=== PATIENT | female | born 1965 | race Caucasian/White ===

== ENCOUNTER 2025-01-03 19:19 | Inpatient (IN) | payer BC, SELFPAY ==
[2025-01-03 15:42] VITALS: BP 143/79
[2025-01-03 16:34] LABS: Urine Character Clear (Clear)
[2025-01-03 16:49] LABS: Urine Squamous Cell 0-2 /LPF (Few)
[2025-01-03 16:49] LABS: Hematocrit 34.6 % (37.0-47.0); Hemoglobin 11.9 g/dL (12.0-16.0); Mean Corp Hgb Conc. 34.4 g/dL (33.0-37.0); Mean Corpuscular Volume 123.6 fL (81.0-99.0); Nucleated Red Blood Cells % 0 %; Platelet Count 127 10^3/uL (130-400); Red Cell Dist. Width 13.9 % (11.5-14.5)
[2025-01-03 16:50] LABS: Urine Red Blood Cell 0-2 /HPF (0-2)
[2025-01-03 17:05] LABS: ALT (SGPT) 46 U/L (0-35); AST (SGOT) 63 U/L (14-36); Albumin 3.7 g/dl (3.5-5.0); Alkaline Phosphatase 122 U/L (38-126); Blood Urea Nitrogen 24 mg/dl (7-17); Calcium 9.3 mg/dl (8.4-10.2); Carbon Dioxide 25 mmol/L (22-30); Chloride 103 mmol/L (98-107); Glucose 102 mg/dl (70-99); Potassium 3.4 mmol/L (3.5-5.1); Sodium 137 mmol/L (135-145); Total Protein 6.6 g/dl (6.3-8.2); eGFR > 60.00
[2025-01-03] MEDS: NSS 1000 IV ×2 (17:10→21:51)
--- NOTE | 2025-01-03 17:45 | ED.GENMED ---
History of Present Illness
General
Chief Complaint: Change in Mental Status
Time Seen by Provider: 01/03/25 15:54
History of Present Illness
History of Present Illness:
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
Patient arrives with spouse who notes for the past 5 days patient has been altered. Notes hallucinations, has not been eating or drinking. She has not wanted to get out of bed. No report of any fever. She is also seemed more dyspneic with cough.
No known sick contacts. Patient is not currently on any active chemotherapy. They are monitoring some lung nodules. Patient denies any abdominal pain. Patient somewhat of limited historian. No additional history obtained at this time
Past History
Past History
ED Past Medical History: Cancer (Muco-epidermoid carcinoma floor of mouth and tongue)
ED Past Surgical History: Appendectomy
Social History
Tobacco: Smoker
Alcohol: Occasional
Personal:
Living: with family
Phy Exam
Physical Exam
Physical Exam:
General: Mild dryness mucous membranes
HEENT: protecting airway
Neck: appears supple
CV: Tachycardic, regular rhythm
Resp: No accessory muscle use, no increased work of breathing, lungs clear to auscultation bilaterally
Abd: Soft and non-distended, no tenderness to palpation
Extremities: No deformities, no swelling, no erythema, pulses and sensation intact
Neuro: alert, no focal neurologic deficit
: deferred
Rectal: deferred
Psych: Normal affect
Skin: Intact
Sepsis
Sepsis Screening
Sepsis Assessment: Sepsis Ruled Out
Sepsis Screen
Sepsis Screen: Sepsis Ruled Out
Date: 01/03/25
Time: 23:27
Course
Orders/Labs/Results
Orders:
Orders
01/03/25 15:44
Electrocardiogram (*1) Urgent
Reason for Study: Fatigue / Weakness
EKG- Treatment ONCE
01/03/25 16:00
Urinalysis Reflex To Culture Urgent
Date Specimen was Collected: 01/03/25
Time Specimen was Collected: 15:56
Urine Microscopic Reflex Cult Urgent
Urine Culture Urgent
AVINASH Source: U
Specimen Description:
Date Specimen was Collected: 01/03/25
Time Specimen was Collected: 15:56
01/03/25 16:32
0.9% Sodium Chloride 1000 ml [Nss] 1,000 ml IV BOLUS
CR Chest - 2 Views Urgent
Comment:
Reason For Exam: AMS
01/03/25 16:33
CT Head W/o Iv Contrast Urgent
Comment:
Reason For Exam: AMS
01/03/25 16:40
Complete Blood Count/With Diff Urgent
Comprehensive Metabolic Panel Urgent
01/03/25 17:00
Heparin Pf [Heparin Lock Flush] 500 unit IV PER PROTOCOL
01/03/25 17:54
Azithromycin 500 mg/250 ml [Zithromax Infusion] 500 mg in 250 ml IV NOW
CefTRIAXone [Rocephin] 1,000 mg IV NOW STA
01/03/25 17:58
Sterile Water [Sterile Water For Injection] 10 ml [facility]
01/03/25 19:00
COVID-19 Antigen Urgent
Source: Nasal Swab
Influenza A+B Rapid Molecular Urgent
AVINASH Source: Nasal Swab
Specimen Description:
01/03/25 19:05
Admit/Transfer Patient As Directed
Co-Sign Provider:
Level of Care: Inpatient admission
Assign to:: Medical/Surgical
Physician / Group: Ector Reynolds
Diagnosis: PNA, AMS
Reason for Hospitalization: PNA, AMS
Expected length of stay greater than two midnights?: Yes
ELOS- Estimated Length of Stay in days: 3
I certify the patient meets the requirements for IP care: Yes
PRN Pain Medication Management As Directed
May give lesser potent ordered pain med per pt: Yes
preference::
Protocol:: Medication orders for pain may be administered in a
manner that supports deferring to patient preference
when the pt is:
- Requesting an ordered lesser potent pain medication.
Least to most potent pain medications are defined
as: acetaminophen < NSAID < tramadol < opioids
(morphine, oxycodone, hydromorphone).
- Requesting a lesser dose of the same medication IF
ORDERED.
- Requesting a less intrusive route of administration
if both routes are prescribed by the provider (PO <
IV).
01/03/25 19:06
Code Status As Directed
Resuscitation Status: Full Code
01/03/25 21:11
0.9% Sodium Chloride 1000 ml [Nss] 1,000 ml IV 70 mls/hr
Acetaminophen [Tylenol] 650 mg PO Q4HPRN PRN
Lorazepam [Ativan] 1 mg PO Q4HPRN PRN anxiety
Oxycodone [Roxicodone] 10 mg PO Q6HPRN PRN moderate pain moderate pain
01/03/25 21:11
Activity As Directed
Activity Level: As Tolerated
Vital Signs As Directed
Frequency: Per unit guidelines
Weight As Directed
Frequency: Once
Comment: on admission
Pt Eval And Treat Routine
Activity Level: As Tolerated
DX Deep Vein Thrombosis Video Routine
01/03/25 22:00
Nystatin Suspension [Mycostatin Oral Suspension] 4 ml PO QID
01/04/25 Breakfast
IDDSI 6 - Soft & Bite Sized
At Your Request: Limited, Family Day Care Provider Required
Oral Supplement (If unsure of flavor order apple or vanilla): Ensure Enlive Wilberforce
Supplement Frequency: BID
Complete Blood Count/No Diff IN AM
Comprehensive Metabolic Panel IN AM
Levothyroxine [Synthroid] 150 mcg PO DAILY @ 0600
01/04/25 08:00
Bupropion(24Hr)Extended Releas [WELLBUTRIN XL (24 hour extended release)] 300 mg PO DAILY
Lamotrigine [Lamictal] 150 mg PO DAILY
01/04/25 18:00
Azithromycin [Zithromax] 250 mg 0.9% Sodium Chloride 250 ml [Nss] 250 ml IV Q24H
CefTRIAXone [Rocephin] 1,000 mg IV Q24H
Enoxaparin Sodium [Lovenox] 40 mg SC QPM
Abnormal Lab Results
01/03/25 01/03/25
16:00 16:40
RBC 2.80 L 10^6/uL
(4.20-5.40)
Hgb 11.9 L g/dL
(12.0-16.0)
Hct 34.6 L %
(37.0-47.0)
MCV 123.6 H fL
(81.0-99.0)
MCH 42.5 H pg
(27.0-31.0)
Plt Count 127 L 10^3/uL
(130-400)
Abs Immat Gran (auto) 0.1 H 10^3/uL
(0-0.05)
Absolute Neuts (auto) 6.6 H 10^3/uL
(1.4-6.5)
Absolute Lymphs (auto) 0.5 L 10^3/uL
(1.2-3.4)
Absolute Monos (auto) 1.1 H 10^3/uL
(0.1-0.6)
Immature Gran % 0.7 H %
(0-0.5)
Neutrophils % 78.0 H %
(42.2-75.2)
Lymphocytes % 6.1 L %
(20.5-51.1)
Monocytes % 13.5 H %
(1.7-9.3)
Potassium 3.4 L mmol/L
(3.5-5.1)
BUN 24 H mg/dl
(7-17)
Creatinine 0.5 L mg/dL
(0.6-1.0)
Glucose 102 H mg/dl
(70-99)
Total Bilirubin 1.7 H mg/dl
(0.2-1.3)
AST 63 H U/L
(14-36)
ALT 46 H U/L
(0-35)
Urine Ketones 3+ A
(Negative)
Urine Bilirubin 2+ A
(Negative)
Urine Urobilinogen 4+ A
(Neg - 1+)
Leukocyte Esterase Rfl 1+ A
(Negative)
Urine Bacteria (Reflex) Many A
(Negative)
Urine Albumin (Reflex) 2+ A
(Neg - Trace)
01/03/25 16:40
01/03/25 16:40
Vital Signs
Initial and Last Documented VS:
Initial Vital Signs
Pulse Resp BP Pulse Ox
112 19 143/79 99
01/03/25 15:42 01/03/25 15:42 01/03/25 15:42 01/03/25 15:42
Last Documented Vital Signs
Temp Pulse Resp BP Pulse Ox
98.2 F 119 18 113/50 97
01/03/25 23:11 01/03/25 21:20 01/03/25 21:20 01/03/25 21:20 01/03/25 22:28
MDM/Problems Addressed
MDM/Problems Addressed:
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 Vital signs on arrival are significant
for tachycardia.
On exam, patient resting comfortably, no acute distress. Some dryness to mucous membranes. Patient is very limited historian, however spouse notes that she has been hallucinating and has not been getting out of bed, poor p.o. intake. Concern for
metabolic abnormality versus infection such as UTI versus possible pneumonia with slight increased work of breathing. Given hallucinations, will also obtain CT brain. No focal neurologic deficits. Starting patient on IV fluids.
17:50 - Labs relatively unremarkable, urine does show some elements of infection with leukocytes. Chest x-ray also shows possible questionable pneumonia. CT brain unremarkable. Given patient's acute change in mental status, difficulty managing at
home, will treat with antibiotics and continue to monitor in the hospital
*Pulse Oximetry
SaO2: 98
Oxygen Mode of Delivery: Room air
Patient hypoxic: no
*EKG
Interpreted by ED Provider?: Yes
EKG Intrepretation Date: 01/03/25
EKG Intrepretation Time: 17:49
Interpretation: abnormal
Heart Rate: 109
Rate: tachycardiac
Rhythm: sinus
Greer: normal axis
Interval: normal interval
QRS Pattern: normal QRS
Ischemia: non-specific ST changes
*Critical Care Note
Total Time (30-74mins, 75-104mins- exclusive of procedures): Not Applicable
ED Attending Note
-
Portions of this chart may have been created with voice recognition software.� Occasional wrong word or��sound alike� substitutions may have occurred due to the inherent limitations of voice recognition software.
Discharge Plan
Departure
Patient Disposition: Admit
Date of Disposition: 01/03/25
Time of Disposition: 17:55
Presentation/result/management discussed w/ accepting MD/DO: Hospitalist
Patient with high blood pressure during this ER visit?: No
Condition: Fair
Discharge Problem:
Altered mental status, Pneumonia
Interventions
Interventions:
*Risk Screen - Suicide Last Done: 01/03/25 15:45
*General Assessment Last Done: 01/03/25 15:45
*Neglect/Abuse Screening Last Done: 01/03/25 15:45
*ED- Fall Risk Assessment Last Done: 01/03/25 15:45
*ED COVID-19 Vaccine History Last Done: 01/03/25 15:45
*ED Influenza Vaccine History Last Done: 01/03/25 15:45
*Nursing Disposition Last Done: 01/03/25 21:05
ED- Pulmonary Assessment Last Done: 01/03/25 16:00
ED- Neurological Assessment Last Done: 01/03/25 16:00
ED- Cardiac Assessment Last Done: 01/03/25 16:00
Discharge Date and Time
Discharge Date/Time: 01/03/25 21:05
[2025-01-03] MEDS: ZITHROMAX INFUSION 250 IV (18:02)
[2025-01-03] MEDS: ROCEPHIN 1000 MG IV (18:03)
--- NOTE | 2025-01-03 18:10 | HPS.HSE ---
Addendum entered and electronically signed by Ector Reynolds MD 01/03/25 19:38:
This is an addendum to H&P written by Keli Hirsch on 01/03/2025. �Patient seen and examined independently with EMERGENCY ROOM CLINICIAN.
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
hallucination and generalized weakness. �Also cough.
Vital signs show tachycardia. �Rhonchorous on examination of bilateral lungs.
Labs show stable anemia of 11.9. �Mild thrombocytopenia 127. �Potassium 3.4. �Mild transaminitis.
Chest x-ray shows predominantly thickened linear opacity in the right midlung most likely subsegmental atelectasis. �Minimal patchy opacity in the left lung base represent subsegmental atelectasis likely pneumonia. �CT head shows no acute
abnormality. �Urinalysis unremarkable.
Patient with acute metabolic encephalopathy concerning for community-acquired pneumonia. �Check COVID and influenza. �IV fluids. �Ceftriaxone/azithromycin.
Hypokalemia. �Replete potassium.
Original Note:
Family Physician
-
Family Physician: Erika Robbins MD
Chief Complaint
-
altered mental status
History of Present Illness
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 Patient
spouse at bedside to assist with HPI. Patient has had a decline starting Thursday12/30/24 when spouse reports she has had increased weakness, confusion, moist cough, hallucinations and decreased PO intake. He states that she started mentioning to
'tell her father...,' but he has been since 2008 and she claimed 'a women, Flow, came to clean her room.' reports that she normally is able to get out of bed and ambulate independently and over past 4-5 days has needed his
assistance up to today where she was unable to stand and hold her own weight. At this time he contacted patients Oncologist, Dr. Rafael Bajwa @ [facility] and he recommended evaluation downtown, however, he felt he would be unable to get her there
so he called EMS for transfer to ED for evaluation. He denies any recent fever, chills, shortness of breath, nausea, vomiting, constipation, diarrhea or urinary symptoms.
Medical History
Past Medical History
Past Medical History: Reports Other
Additional Past Medical History:
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
hypothyroidism
anxiety/depression
Past Surgical History: Reports Other
Additional Past Surgical History:
appendectomy:2003
Cancer surgery x 2 initially floor of mouth, left jaw, then right side jaw/resection 2019
rotator cuff tear repair 2011
Social History
Tobacco: Former Smoker (quit in 2015)
Alcohol: Daily (glass of wine nightly )
Drug: None
Personal:
Living: With Family
Family History
Family History: Not pertinent
Allergies / Home Medications
Allergies reflects when Allergies were last updated in [employer].
Home Medications with original date entered in [employer]
Allergy/Medication List:
Allergies
Allergy/AdvReac Type Severity Reaction Status Date / Time
No Known Allergies Allergy Verified 11/04/15 10:49
Home Medications
bupropion HCl 300 mg 24 hr tablet, extended release 300 mg PO DAILY 08/24/14
lamotrigine 150 mg tablet 150 mg PO DAILY 11/04/15
levothyroxine 150 mcg tablet 150 mcg PO DAILY 01/03/25
lorazepam 1 mg tablet 1 mg PO Q4HPRN PRN anxiety 01/03/25
nystatin 100,000 unit/mL oral suspension 4 ml PO QID 01/03/25
oxycodone 10 mg tablet 10 mg PO Q6HPRN PRN pain 01/03/25
Review of Systems
-
History Source: Patient
Constitutional: Denies Fever or Chills
EENT: Reports Mouth Pain (recent thrush infection ); Denies Sore Throat
Respiratory: Reports Cough (moist cough, nonproductive ); Denies Trouble Breathing
Cardiac: Denies Chest Pain, Diaphoresis, Palpitations or Syncope
Abdomen/GI: Denies Abdominal Pain, Nausea, Vomiting or Diarrhea
: Denies Dysuria, Frequency or Urgency
Musculoskeletal: Denies Joint Pain
Skin: Denies Rash
Neurological: Reports Dizzy, Weakness and Other (confusion and hallucinations ); Denies Headache or Numbness
Endocrine: Denies Polyuria or Polydipsia
Physical Exam
Vital Signs
Vital Signs
Temp Pulse Resp BP Pulse Ox
97.1 F 92 22 143/79 98
01/03/25 15:48 01/03/25 17:45 01/03/25 17:45 01/03/25 15:42 01/03/25 17:45
Physical Exam
General: No Apparent Distress, Comfortable and Appears Chronically Ill
HEENT: NormoCephalic, Nose Appears Normal and Ears Appear Normal
Respiratory: Rhonchi and Non Labored Respirations
Cardiac: S1/S2 and Regular Rhythm; No Peripheral Edema
GI: Soft, Non Tender, Non Distended and Normal Bowel Sounds
Musculoskeletal: No Clubbing, No Cyanosis and No Edema
Skin: IV/Catheter Site
Neuro: Awake and AO x 3
Psych: Calm
Laboratory Results
-
01/03/25 16:40
01/03/25 16:40
Laboratory Results
Total Bilirubin 1.7 mg/dl (0.2-1.3) H 01/03/25 16:40
AST 63 U/L (14-36) H 01/03/25 16:40
ALT 46 U/L (0-35) H 01/03/25 16:40
Alkaline Phosphatase 122 U/L (38-126) 01/03/25 16:40
Data Reviewed
-
Diagnostic Radiology: Report Reviewed by me (CXR: Predominantly thickened linear opacity in the right midlung most likely representing subsegmental atelectasis. Minimal patchy opacity in the left lung base which could represent subsegmental
atelectasis, less likely pneumonia. Right chest port with tip at the level of the cardiac right atrium)
CT Scan: Report Reviewed by me (Head: 1. No CT evidence for acute intracranial hemorrhage or transcortical infarct. 2. Mild diffuse cerebral and cerebellar volume loss. 3. Mild periventricular white matter leukoaraiosis. 4. 7.5 mm chronic
white matter infarct in the right frontal lobe salazar radiata. 5. 5.6 mm chronic in)
Lab Data: Labs Reviewed by me (AST 63, ALT 46)
Impression/Plan
-
IMPRESSION/PLAN:
#altered mental status likely 2/2 PNA
UA: not indicative of UTI
Urine Cx: pending
Influenza: pending
Covid: pending
EKG: SINUS TACHYCARDIA
LEFT AXIS DEVIATION
LOW VOLTAGE QRS
INFERIOR INFARCT , AGE UNDETERMINED
CANNOT RULE OUT ANTERIOR INFARCT (CITED ON OR BEFORE 24-Aug-2014)
CXR: Predominantly thickened linear opacity in the right midlung most likely representing subsegmental atelectasis.
Minimal patchy opacity in the left lung base which could represent subsegmental atelectasis, less likely pneumonia.
Right chest port with tip at the level of the cardiac right atrium.
Head CT: 1. No CT evidence for acute intracranial hemorrhage or transcortical infarct.
2. Mild diffuse cerebral and cerebellar volume loss.
3. Mild periventricular white matter leukoaraiosis.
4. 7.5 mm chronic white matter infarct in the right frontal lobe salazar radiata.
5. 5.6 mm chronic infarct in the right cerebellar hemisphere.
- Admit to med/surg
- IVF NSS 70cc/hr
- IV Ceftriaxone and Azithromycin
- supportive care
#mild transaminitis
AST 63, ALT 46
- monitor LFTs
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
follows with Dr. Bajwa @ [facility] ([facility])
s/p surgery, chemo and 78 rounds radiation
- mechanical soft diet with Ensure BID
#hypothyroidism
- continue levothyroxine
#anxiety/depression
- continue bupropion, lamotrigine and lorazepam
#thrush
- continue nystatin swish and swallow
Code status: full code
DVT prophylaxis: lovenox sq
[2025-01-03 19:26] LABS: COVID-19 Antigen Negative (Negative)
[2025-01-03 19:34] VITALS: BP 107/48
[2025-01-03 20:00] VITALS: BP 102/60
[2025-01-03 21:19] VITALS: BMI 21.7
[2025-01-03 21:20] VITALS: BP 113/50
[2025-01-03] MEDS: MYCOSTATIN ORAL SUSPENSION 4 ML PO (21:50)
--- NOTE | 2025-01-04 04:01 | PTCARENOTE ---
Patient received from ED via stretcher. Patient pulled from stretcher to bed. Patient aaox1: unable to explain why she is here, the location and the year. Patient able to answer most of admission questions. No complaints at this time.
[2025-01-04 05:02] LABS: Hematocrit 31.3 % (37.0-47.0); Hemoglobin 10.9 g/dL (12.0-16.0); Mean Corp Hgb Conc. 34.8 g/dL (33.0-37.0); Mean Corpuscular Volume 120.8 fL (81.0-99.0); Platelet Count 122 10^3/uL (130-400); Red Cell Dist. Width 13.8 % (11.5-14.5)
[2025-01-04] MEDS: SYNTHROID PO ×3 (05:35→08:08)
[2025-01-04 05:46] LABS: ALT (SGPT) 38 U/L (0-35); AST (SGOT) 57 U/L (14-36); Albumin 3.3 g/dl (3.5-5.0); Alkaline Phosphatase 112 U/L (38-126); Blood Urea Nitrogen 21 mg/dl (7-17); Calcium 8.7 mg/dl (8.4-10.2); Carbon Dioxide 17 mmol/L (22-30); Chloride 109 mmol/L (98-107); Estimated Creatinine Clearance 92 ml/min; Glucose 89 mg/dl (70-99); Potassium 3.8 mmol/L (3.5-5.1); Sodium 139 mmol/L (135-145); Total Protein 5.8 g/dl (6.3-8.2); eGFR > 60.00
--- NOTE | 2025-01-04 06:29 | DOWNTIME ---
There was a [employer] Client Student Accounts Coordinator Downtime on 01/04/2025 from 0100 to 01/04/2025 at 0215. Downtime documentation of patient's care, including medication administrations, has been reconciled in the electronic record per guidelines. Refer to the
patient's paper chart under the miscellaneous tab to see printed paper medication records and downtime forms.
[2025-01-04] MEDS: MYCOSTATIN ORAL SUSPENSION 4 ML PO ×4 (07:49→21:06)
[2025-01-04] MEDS: LAMICTAL PO ×2 (07:49→08:08)
[2025-01-04] MEDS: WELLBUTRIN XL (24 hour extended release) PO ×2 (07:49→08:08)
[2025-01-04 07:51] VITALS: BP 114/74
[2025-01-04 09:25] LABS: Ammonia < 9 umol/L (9-30)
[2025-01-04 09:31] LABS: TSH 0.11 uIU/ml (0.47-4.68)
--- NOTE | 2025-01-04 10:07 | PTOTSP ---
Dysphagia Evaluation
Patient with acute on chronic dysphagia risk factors (i.e., acute - PNA with AMS; chronic - mucosal epidermoid carcinoma of mouth/tongue s/p surgery to floor of mouth, left/right jaw, chemo/radiation; lung mets). Recommend temporary NPO due to
severity of AMS at this time negatively impacting pre-feeding and oral/pharyngeal swallowing skills.
Recommend:
1. NPO
2. Medications via non-oral means
3. Temporary non-oral hydration/nutrition
4. Oral care 3-5x daily given current thrush and NPO
5. Dysphagia tx at the acute care level to determine if/when appropriate to resume an oral diet
[2025-01-04] MEDS: NSS 1000 IV (11:34)
[2025-01-04 11:39] LABS: B.E. -6.8 mmol/L; O2 Saturation % 100.0 % (94-98); PCO2 20 mmHg (32-35); PO2 118 mmHg (83-108)
[2025-01-04 11:44] LABS: HCO3 14.9 mmol/L (21-28)
--- NOTE | 2025-01-04 11:58 | W.PN.HOSP.TC ---
Today's Communication/Plan
-
Assessment / Plan
Assessment / Plan
General: No Apparent Distress, confused
HEENT: NormoCephalic, Moist mucous membranes, status post mandibular/neck surgery
Respiratory: Clear and Non Labored Respirations
Cardiac: S1/S2 and Regular Rhythm; No Rub or Gallop
GI: Soft, Non Tender, Non Distended and Normal Bowel Sounds
Musculoskeletal: No Edema, no deformity
Skin: Warm and dry
: NO [place]
Neuro: Awake, disoriented, no focal weakness
Psych: Calm and cooperative
Ms. 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 Rafael Bajwa at [facility], recently treated with
radiation for lung nodules), hypothyroidism anxiety), and recent thrush (treated with nystatin swish and swallow) who presented for evaluation of encephalopathy. Her reports ongoing weakness for the past few weeks with a significant decline
since the Thursday prior to arrival (12/30/2024) when she was unable to ambulate on her own due to balance issues and began hallucinating. In the ED she was afebrile and normotensive. She had a mild hypokalemia potassium of 3.4 and mildly elevated
LFTs. Her respiratory swab was negative for COVID with positive for influenza B. Chest imaging showed multiple likely chronic abnormalities with possible pneumonia at the left lung base. CT brain showed no acute abnormalities but did show chronic
appearing infarcts in the right frontal lobe salazar radiata and right cerebellar hemisphere. She was started on IV fluids and antibiotics and admitted for further evaluation and management.
Metabolic encephalopathy:
- Unclear etiology, possibly due to acute influenza infection with possible superimposed bacterial pneumonia
- Appears to have a primary chronic respiratory alkalosis which is appropriately compensated
- Continuing antibiotics, follow-up cultures
- Evaluated by REGISTRATION REPRESENTATIVE, not tolerating p.o. diet, made n.p.o., added dextrose and bicarb to IV fluids
- TSH low but free T4 within normal limits, ammonia undetectable
- CT brain shows no acute abnormalities but does show chronic appearing infarcts
- Will ask for neurology input
Acute urinary retention:
- Patient reports having to urinate but unable to do so on her own
- Bladder scan show retained urine
- Will place [place] catheter if retaining greater than 400 cc
Abnormal LFTs:
- Mild, slightly improving
- Will monitor
Hypokalemia:
- Mild, now resolved
- Will monitor
- Check mag
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
- Status post surgery including mandibular resection, chemotherapy, and radiation
- Reportedly received radiation to the chest for lung nodules
- follows with Dr. Bajwa @ [facility] ([facility])
Thrush:
- Recently started on treatment by PCP, will continue
DVT prophylaxis: Lovenox
CODE STATUS: Full code
Anticipated Discharge: > 48 hours
Subjective/Interval History
-
Date of Service: January 04, 2025
Patient was seen and examined at bedside this morning. Awake but confused and not able to sustain meaningful conversation. Also retaining urine.
Objective Data
-
Labs:
Laboratory Results
01/04/25 01/04/25
04:50 11:27
WBC 13.0 H
Hgb 10.9 L
Hct 31.3 L
Plt Count 122 L
HCO3 14.9 L*
Sodium 139
Potassium 3.8
Chloride 109 H
Carbon Dioxide 17 L
BUN 21 H
Creatinine 0.4 L
Glucose 89
Calcium 8.7
Total Bilirubin 1.5 H
AST 57 H
ALT 38 H
Alkaline Phosphatase 112
Vital Signs:
Vital Signs
Temp Pulse Resp BP Pulse Ox
98.4 F 110 20 114/74 97
01/04/25 07:51 01/04/25 07:51 01/04/25 07:51 01/04/25 07:51 01/04/25 08:00
Review of Systems
-
Unable to obtain full review of systems at this time due to: Acuity
History Source: Patient
All other systems: Reviewed and negative
Physical Exam
-
General: No Apparent Distress
--- NOTE | 2025-01-04 12:16 | CM ---
CM following re: discharge planning.
Reviewed pt's chart, met with pt and pt's at bedside.
Pt is a 59 year old female, admitted with primary dx of altered mental status likely 2/2 PNA. 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
Pt is not a great historian, information obtained from pt's . pt lives with 2SH, no steps, has supportive daughter and 3 supportive stepchildren. Per , pt was independent with functional ability up to two weeks ago when pt
experienced difficulties with standing and walking. Pt's stated she strongly feels that pt will need to go to a SNF for a short term rehab and following SNFs requested: [facility], [facility] and [facility]. CM will make a referral to
requested SNFs after PT/OT evaluations.
PT and OT will evaluate the pt to determine a level of care at discharge.
PCP: Erika Robbins
Pharmacy: [facility].
D/C plan: preferred SNF.
CM will follow with discharge plan updates as hospitalization progresses
[2025-01-04] MEDS: SODIUM BICARBONATE 1050 MEQ IV (12:31)
--- NOTE | 2025-01-04 13:44 | PTCARENOTE ---
Patient AAOX1-2 this AM, confused and drowsy, garbled speech and excessive oral secretions. Mouth care and oral suction provided, this RN attempted to administer scheduled AM medications crushed in puree, patient unable to swallow, medications and
applesauce suctioned out of mouth. MD and speech therapy made aware, speech consult placed, patient NPO after speech eval. VBG and blood cx x2 ordered per MD.
Patient with no urine output despite urge to void, attempted to assist patient onto BSC, patient unable to stand/support weight with x2 assist, no urination when placed on bedpan. Bladder scan 400ml, MD made aware, straight cath performed, 600ml
dark suzanne urine output with sediment. MD made aware, repeat urinalysis reflex to cx ordered per MD. IVF infusing through R subq port, CHG bath provided.
[2025-01-04 13:48] LABS: Urine Character Cloudy (Clear)
--- NOTE | 2025-01-04 13:50 | CON.NEURO4 ---
Addendum entered and electronically signed by Eleazar Quintanilla MD 01/04/25 16:20:
Studies reviewed.
I have personally examined the patient. I reviewed and agree with the INFORMATION TECHNOLOGY ADMINISTRATOR's Note.
My addenda:
Awake, interactive. Closes eyes after no acute distress.
Speech thick, minimal output.
Follows some 1-step requests w/ difficulty. No tremor.
Extra-ocular movements grossly intact.
Facial movements full and symmetric. Hearing intact to normal conversational volume.
Normal UE movements bilaterally.
Neck: full ROM.
Chest: no dyspnea
Heart: no JVD
Ext: (-) Clubbing, (-) Cyanosis, (-) Edema
IMPRESSIONS/RECOMMENDATIONS:
Abrupt onset of change in mental status. This problem is been subacute beginning in September 2024 after radiation to the jaw for cancer treatment. The patient had progressed after that and began having confusion and patient's.
Differential diagnosis includes toxic metabolic encephalopathy, subacute stroke, medication overexposure including potentially due to lamotrigine
Check blood work potential metabolic causes
Check MRI brain with and without contrast for structural abnormalities especially in light of the patient having had metastasis
Consider EEG
Provide thiamine
Check lamotrigine level
Not clear patient would benefit from the use of aspirin at this time
Would reduce exposure to potentially sedative medications including oxycodone and lorazepam.
D/W patient / family
All questions answered.
Will continue to follow patient.
Original Note:
Documented by User: Keil Matt NP 01/04/25 15:35
Consultation - Neurology 4
-
CONSULTING PHYSICIAN: Eleazar Quintanilla MD
REFERRING PHYSICIAN: Hospitalists/Dr. Mortensen
DICTATED BY: ADRIANA Amador
DATE/TIME OF REQUEST: 01/04/25
DATE/TIME OF CONSULTATION: 01/04/25
Reason for Consultation: Change in mental status
History of Present Illness:
This is a 59-year-old female who has presented to the hospital on 01/03/25 with report of altered mental status. Patient's spouse at bedside reports that she last had radiation in September 2024 and has been more fatigued since then. About two weeks
ago, the patient became weak and even more fatigued than usual. About six days ago she stopped eating, drinking, and getting out of bed. She also started being confused and having hallucinations. Yesterday (01/03/25), she became so weak that her
had to carry her, prompting him to bring her to the ER for evaluation. 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 Nasal swab was positive for influenza
B. She offers no complaints but is obtunded and minimally able to participate in conversation.
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
Surgical History: Jaw resection x2, appendectomy, RLE bone graft.
Family History: Reviewed and noncontributory.
Social History: Former smoker. 1 glass of wine nightly. Denies illicit drug use.
Allergies: No known allergies.
Home Medications: See below.
Review of Symptoms:
MALLIKA a full review of systems due to lethargy.
�Per the HPI.�All systems are reviewed negative except above.
Physical Exam:
The patient is afebrile, abdomen is nondistended, breathing is unlabored, skin is warm and dry, RLE scar, jaw with surgical deformity.
NIH Stroke Scale:
I performed the NIH stroke scale on the patient on 01/04/25 at 1430. The patient scored 12 points on the NIH stroke scale assessment, which were assigned as follows: See below.
Neurologic Examination:
The patient is drowsy, opens eyes to physical stimulation/loud voice. She is oriented x3 but conversation is confused. She is preferring to lay on her left side. She is able to follow some commands and answer some questions appropriately. There is
no apparent aphasia, speech is dysarthric. Mildly disinhibited. On cranial nerve assessment, pupils are 3 mm bilateral, round and reactive to light and accommodation. Visual oquendo are challenging to assess but appear full. Extraocular movements are
challenging to assess, appear intact. There is no facial asymmetry, chronic surgical jaw deformity. Hearing is intact bilaterally to normal conversation volume. Tongue palate and uvula are midline. Sternocleidomastoid strengths are full bilaterally.
Motor strengths are 3/5 bilateral upper and lower extremities on medical research [place] scale. There is no drift or involuntary movement noted. Deep tendon reflexes are 2+ bilateral upper and lower extremities and Babinski is absent bilaterally.
MALLIKA double simultaneous and coordination due to lethargy.
Lab Results: See below.
Neuro Imaging:
1. CT Head 01/03/25: No CT evidence for acute intracranial hemorrhage or transcortical infarct. Mild diffuse cerebral and cerebellar volume loss. Mild periventricular white matter leukoaraiosis. 7.5 mm chronic white matter infarct in the right
frontal lobe salazar radiata. 5.6 mm chronic infarct in the right cerebellar hemisphere.
Differentials for the patient's presentation include:
1. Altered mental status; etiology is likely partially due to toxic metabolic encephalopathy in the setting of the flu, but there is also concern for a structural brain abnormality vs encephalitis contributing to symptoms.
2. CT head is suggestive of a chronic right frontal salazar radiata and right cerebella ischemic infarcts.
3. Mucosal epidermoid carcinoma, lung nodules s/p radiation in September 2024.
Patient has the following risk factors for their symptoms: Hx cancer, flu
Recommendations:
-MRI brain w/ and w/o contrast pending, will likely need lorazepam to cooperate with lying flat on her back.
-Will consider need for antiplatelet medication after MRI brain results are obtained.
-Will base need for further neurological testing based on MRI brain results.
-Supportive care.
-Neurological checks per unit guidelines.
-DVT prophylaxis.
-PT/OT/ST when able.
Discussed patient care with: Dr. Quintanilla, patient's spouse, the patient
Vital Signs and Labs
-
Vital Signs and Labs:
Vital Signs
Temp Pulse Resp BP Pulse Ox
98.4 F 110 20 114/74 97
01/04/25 07:51 01/04/25 07:51 01/04/25 07:51 01/04/25 07:51 01/04/25 08:00
Lab Results
01/04/25 04:50
01/04/25 04:50
Sodium 139 mmol/L (135-145) 01/04/25 04:50
Potassium 3.8 mmol/L (3.5-5.1) 01/04/25 04:50
BUN 21 mg/dl (7-17) H 01/04/25 04:50
Glucose 89 mg/dl (70-99) 01/04/25 04:50
Calcium 8.7 mg/dl (8.4-10.2) 01/04/25 04:50
Medications
-
Active Medications
Generic Name Dose Route Start Last Admin
Trade Name Freq PRN Reason Stop Dose Admin
Acetaminophen 650 mg 01/03/25 21:11
Acetaminophen 325 Mg Tablet PO 01/31/25 21:10
Q4HPRN PRN
mild pain/SUN/temp> 100.4F
Bupropion HCl 300 mg 01/04/25 08:00 01/04/25 08:08
Bupropion (24hr) Extended Release 300 Mg Tablet PO 02/01/25 07:59 Not Given
DAILY CAITLYN
Ceftriaxone Sodium 1,000 mg 01/04/25 18:00
Ceftriaxone 1000 Mg / 10 Ml Vial IV
Q24H CAITLYN
Enoxaparin Sodium 40 mg 01/04/25 18:00
Enoxaparin Sodium 40 Mg/0.4 Ml Syringe SC 02/01/25 17:59
QPM CAITLYN
Heparin Sodium (Porcine) 500 unit 01/03/25 17:00
Heparin Flush Pf (100 Unit/Ml) 5 Ml Syringe IV 01/31/25 16:59
PER PROTOCOL CAITLYN
Azithromycin 250 mg/ Sodium 252.5 mls @ 252.5 mls/hr 01/04/25 18:00
Chloride IV
Q24H CAITLYN
Sodium Bicarbonate 50 meq/ 1,050 mls @ 70 mls/hr 01/04/25 12:15 01/04/25 12:31
Dextrose IV 01/05/25 03:14 1,050 mls
.Q15H CAITLYN Administration
Lamotrigine 150 mg 01/04/25 08:00 01/04/25 08:08
Lamotrigine 100 Mg Tablet PO 02/01/25 07:59 Not Given
DAILY CAITLYN
Levothyroxine Sodium 150 mcg 01/04/25 06:00 01/04/25 08:08
Levothyroxine 150 Mcg Tablet PO 02/01/25 05:59 Not Given
DAILY @ 0600 CAITLYN
Lorazepam 1 mg 01/03/25 21:11
Lorazepam 1 Mg Tablet PO 01/31/25 21:10
Q4HPRN PRN
anxiety
Nystatin 4 ml 01/03/25 22:00 01/04/25 12:02
Nystatin Oral Suspension 500,000 Units/5 Ml PO 01/31/25 21:59 4 ml
QID CAITLYN Administration
Oxycodone HCl 10 mg 01/03/25 21:11
Oxycodone 10 Mg Regular Release Tablet PO 01/17/25 21:10
Q6HPRN PRN
moderate pain
Sodium Chloride 0 flush 01/03/25 22:00
Sodium Chloride 0.9% (Flush) Syringe IV 01/31/25 21:59
PER PROTOCOL CAITLYN
Sterile Water 10 ml 01/04/25 18:00
Sterile Water For Injection 10 Ml Vial IV 02/01/25 17:59
Q24H CAITLYN
Home Medications
�Medication �Instructions �Recorded
bupropion HCl 300 mg 24 hr tablet, 300 mg PO DAILY 08/24/14
extended release
lamotrigine 150 mg tablet 150 mg PO DAILY 11/04/15
levothyroxine 150 mcg tablet 150 mcg PO DAILY 01/03/25
lorazepam 1 mg tablet 1 mg PO Q4HPRN PRN anxiety 01/03/25
nystatin 100,000 unit/mL oral 4 ml PO QID 01/03/25
suspension
oxycodone 10 mg tablet 10 mg PO Q6HPRN PRN pain 01/03/25
NIH Stroke Score
Subsequent NIH Scale
Date of Subsequent NIH Scale: 01/04/25
Time of Subsequent NIH Scale: 14:30
NIH Stroke Score
Level of Consciousness: 2 - Obtunded
LOC Questions: 0-Answers both correctly
LOC Commands: 0-Performs both correctly
Best Horizontal Gaze: 0-Normal
Visual Oquendo: 0=Normal, no visual loss
Facial Palsy: 0=Normal, symmetrical
Motor - Right Arm: 2=Partial vs. gravity
Motor - Left Arm: 2=Partial vs. gravity
Motor - Right Le-Partial vs. gravity
Motor - Left Le-Partial vs. gravity
Limb Ataxia: UN-Amputation/jointfusion
Sensation: 0-Normal
Best Language: 0-No aphasia
Dysarthria: 2-Severe slurring
Extinction and Inattention: 0-No abnormality
NIH Total Score:: 12
Modified Michele (mRS) Score
Modified [place] Scale (mRS): Moderately severe disability. Unable to attend to bodily needs/walk.
Score: 4

Documented by User: Eleazar Quintanilla MD 01/04/25 16:06
NIH Stroke Score
NIH Stroke Score
NIH Total Score:: 12
Modified [place] (mRS) Score
Score: 4
[2025-01-04 13:58] LABS: Urine Red Blood Cell 0-2 /HPF (0-2); Urine Squamous Cell 0-2 /LPF (Few); Urine White Cell 0-2 /HPF (0-5)
[2025-01-04 14:42] VITALS: BMI 21.7
[2025-01-04 15:41] VITALS: BP 103/67
[2025-01-04] MEDS: STERILE WATER FOR INJECTION 10 ML IV (17:12)
[2025-01-04] MEDS: ROCEPHIN 1000 MG IV (17:12)
[2025-01-04] MEDS: THIAMINE INJECTION 100 MG IV (17:13)
[2025-01-04] MEDS: LOVENOX 40 MG SC (17:13)
[2025-01-04] MEDS: ZITHROMAX 252.5 MG IV (17:15)
[2025-01-04 18:16] LABS: Folate 2.8 ng/ml (2.76-20); Vitamin B12 622 pg/ml (239-931)
[2025-01-04] MEDS: DESENEX/MITRAZOL/ZEASORB 1 APPLIC TOPICAL (20:01)
[2025-01-04 23:25] VITALS: BP 99/66
[2025-01-05] VITALS (7 sets, daily range): BP systolic 87–103; BP diastolic 52–72
[2025-01-05 05:36] LABS: Hematocrit 29.4 % (37.0-47.0); Hemoglobin 10.6 g/dL (12.0-16.0); Mean Corp Hgb Conc. 36.1 g/dL (33.0-37.0); Mean Corpuscular Volume 117.6 fL (81.0-99.0); Nucleated Red Blood Cells % 0 %; Platelet Count 125 10^3/uL (130-400); Red Cell Dist. Width 13.6 % (11.5-14.5)
[2025-01-05 06:10] LABS: ALT (SGPT) 31 U/L (0-35); AST (SGOT) 41 U/L (14-36); Albumin 2.9 g/dl (3.5-5.0); Alkaline Phosphatase 99 U/L (38-126); Blood Urea Nitrogen 14 mg/dl (7-17); Calcium 8.5 mg/dl (8.4-10.2); Carbon Dioxide 26 mmol/L (22-30); Chloride 106 mmol/L (98-107); Estimated Creatinine Clearance 92 ml/min; Glucose 108 mg/dl (70-99); Magnesium 1.5 mg/dl (1.6-2.3); Potassium 2.8 mmol/L (3.5-5.1); Sodium 134 mmol/L (135-145); Total Protein 5.3 g/dl (6.3-8.2); eGFR > 60.00
[2025-01-05] MEDS: SYNTHROID 150 MCG PO (06:25)
[2025-01-05] MEDS: MAGNESIUM SULFATE 50 IV (08:20)
[2025-01-05] MEDS: KCL 270 MEQ IV (08:20)
[2025-01-05] MEDS: THIAMINE INJECTION 100 MG IV (08:21)
[2025-01-05] MEDS: WELLBUTRIN XL (24 hour extended release) 300 MG PO (08:21)
[2025-01-05] MEDS: LAMICTAL 150 MG PO (08:21)
[2025-01-05] MEDS: MYCOSTATIN ORAL SUSPENSION 4 ML PO ×4 (08:21→21:45)
[2025-01-05] MEDS: DESENEX/MITRAZOL/ZEASORB 1 APPLIC TOPICAL ×2 (08:23→21:45)
--- NOTE | 2025-01-05 11:40 | PTOTSP ---
Speech Language Pathology
Pt seen for cognitive-lingusitic and speech evaluations. Minimal lingual movement noted from previous surgeries and XRT, resulting in mod dysarthria. Cognitive-linguistic status evaluated via the Carroll Cognitive Assessment (MOCA), version 8.2.
Pt with an overall score of 14/30 where normal range is 26-30. Pt with mod cognitive deficits.
Pt also seen for dysphagia tx. Seen with P.O. trials of puree and thin liquids. Mod-severe oral dysphagia noted characterized by prolonged and incoordinated A-P transfer with minimal bolus formation. Significant oral residue noted with anterior
leakage. Pt stated this is typical. Brief throat clear noted x1 with thin liquids. No overt coughing.
Given current cognitive status and H&N CA s/p surgery and XRT with significant fibrosis, pt likely with at least some level of pharyngeal dysphagia. Pt believes she had a VSE approximately 4 years ago which was normal. Question accuracy given
cognitive deficits.
Recommend:
(1) IDDSI Level 4 (Puree) and Thin Liquids
(2) Aspiration precautions: sit upright, single sips, slow rate, ensure oral cavity clear post P.O. intake (use yankauer as needed)
(3) Meds whole in puree
(4) Will consider instrumental swallowing assessment pending tolerance/medical improvement
(5) PULVERIZER FEEDER to continue to follow for dysphagia and cognitive-linguistic tx
--- NOTE | 2025-01-05 12:22 | CM ---
Chart reviewed. PT evaluation on hold pending diagnostic test results. medical billing manager will monitor and support disposition plan when needs identified
--- NOTE | 2025-01-05 13:15 | W.PN.HOSP.TC ---
Today's Communication/Plan
-
Assessment / Plan
Assessment / Plan
General: No Apparent Distress, comfortable, conversant
HEENT: NormoCephalic, Moist mucous membranes, status post mandibular/neck surgery
Respiratory: Clear and Non Labored Respirations
Cardiac: S1/S2 and Regular Rhythm; No Rub or Gallop
GI: Soft, Non Tender, Non Distended and Normal Bowel Sounds
Musculoskeletal: No Edema, no deformity
Skin: Warm and dry
: NO [place]
Neuro: Awake, alert, no focal weakness
Psych: Calm and cooperative
Ms. 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 Rafael Bajwa at [facility], recently treated with
radiation for lung nodules), hypothyroidism anxiety), and recent thrush (treated with nystatin swish and swallow) who presented for evaluation of encephalopathy. Her reports ongoing weakness for the past few weeks with a significant decline
since the Thursday prior to arrival (12/30/2024) when she was unable to ambulate on her own due to balance issues and began hallucinating. In the ED she was afebrile and normotensive. She had a mild hypokalemia potassium of 3.4 and mildly elevated
LFTs. Her respiratory swab was negative for COVID with positive for influenza B. Chest imaging showed multiple likely chronic abnormalities with possible pneumonia at the left lung base. CT brain showed no acute abnormalities but did show chronic
appearing infarcts in the right frontal lobe salazar radiata and right cerebellar hemisphere. She was started on IV fluids and antibiotics and admitted for further evaluation and management.
Metabolic encephalopathy:
- Significantly improved today after treatment with IV antibiotics for the past 24 hours
- MRI brain shows evidence of encephalitis
- Neurology following, LP pending
- Continuing antibiotics, follow-up cultures
- Now tolerating p.o. diet
Electrolyte abnormality:
- Hypokalemia with serum potassium 2.8
- Hypomagnesemic with serum magnesium 1.5
- Hypophosphatemia with serum phosphorus 2.0
- Mild hyponatremia with serum sodium 134
- Replete
- Repeat labs this afternoon
Acute urinary retention:
- [place] in place
- Trial of void prior to discharge
Abnormal LFTs:
- Mild, improving
- Will monitor
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
- Status post surgery including mandibular resection, chemotherapy, and radiation
- Reportedly received radiation to the chest for lung nodules
- follows with Dr. Bajwa @ [facility] ([facility])
Thrush:
- Recently started on treatment by PCP, will continue
DVT prophylaxis: Lovenox
CODE STATUS: Full code
Anticipated Discharge: > 48 hours
Subjective/Interval History
-
Date of Service: January 05, 2025
Patient was seen and examined at bedside this morning. Mental status has significantly improved. He was starting a p.o. diet.
Objective Data
-
Labs:
Laboratory Results
01/05/25 01/05/25 01/05/25
05:14 11:46 13:00
WBC 10.1
Hgb 10.6 L
Hct 29.4 L
Plt Count 125 L
PT Pending
INR Pending
Sodium 134 L Pending
Potassium 2.8 L D Pending
Chloride 106 Pending
Carbon Dioxide 26 Pending
BUN 14 Pending
Creatinine 0.4 L Pending
Glucose 108 H Pending
Calcium 8.5 Pending
Total Bilirubin 1.4 H
AST 41 H
ALT 31
Alkaline Phosphatase 99
Vital Signs:
Vital Signs
Temp Pulse Resp BP Pulse Ox
97.9 F 109 18 103/72 99
01/05/25 07:21 01/05/25 07:21 01/05/25 07:21 01/05/25 07:21 01/05/25 07:21
I&O
01/04/25 01/05/25 01/06/25
06:59 06:59 06:59
Intake Total 1862 / 1862
Output Total 1210 / 1210
Balance 652 / 652
Review of Systems
-
History Source: Patient
All other systems: Reviewed and negative
Physical Exam
-
General: No Apparent Distress
[2025-01-05 14:22] LABS: INR 1.35; PT 17.0 Sec (11.4-14.6)
[2025-01-05 14:50] LABS: Blood Urea Nitrogen 14 mg/dl (7-17); Calcium 8.6 mg/dl (8.4-10.2); Carbon Dioxide 26 mmol/L (22-30); Chloride 107 mmol/L (98-107); Estimated Creatinine Clearance 92 ml/min; Glucose 105 mg/dl (70-99); Magnesium 2.1 mg/dl (1.6-2.3); Potassium 3.6 mmol/L (3.5-5.1); Sodium 133 mmol/L (135-145); eGFR > 60.00
--- NOTE | 2025-01-05 15:45 | W.PN.NEURO.1 ---
Today's Communication / Plan
-
Appreciate interventional radiology consult for lumbar puncture
Labs placed for checking CSF
Provide medications based on CSF findings
Continue to limit exposure to potentially sedating medications including oxycodone
Continue thiamine
Appreciate rehab evaluations
Check EEG
Await lamotrigine levels
Neuro Assessment/Plan
Assessment
Abrupt onset of change in mental status. This problem is been subacute beginning in September 2024 after radiation to the jaw for cancer treatment. The patient had progressed after that and began having confusion and hallucinations.
Differential diagnosis includes toxic metabolic encephalopathy, subacute stroke, medication overexposure including potentially due to lamotrigine. Following MRI of the brain, there is evidence of cortical ribbon enhancement which may be secondary
to encephalitis
Plan
Appreciate interventional radiology consult for lumbar puncture
Labs placed for checking CSF
Provide medications based on CSF findings
Continue to limit exposure to potentially sedating medications including oxycodone
Continue thiamine
Appreciate rehab evaluations
Check EEG
Await lamotrigine levels
Will follow
Subjective/Objective
Subjective Data
Date of Service: January 05, 2025
Patient unable to provide her own medical history
Objective Data
Vital Signs
Temp Pulse Resp BP Pulse Ox
36.9 C 111 18 96/64 99
01/05/25 15:10 01/05/25 15:10 01/05/25 15:10 01/05/25 15:10 01/05/25 15:10
Lab Results
01/05/25 05:14
01/05/25 13:58
PT 17.0 Sec (11.4-14.6) H 01/05/25 13:58
INR 1.35 01/05/25 13:58
Sodium 133 mmol/L (135-145) L 01/05/25 13:58
Potassium 3.6 mmol/L (3.5-5.1) D 01/05/25 13:58
BUN 14 mg/dl (7-17) 01/05/25 13:58
Glucose 105 mg/dl (70-99) H 01/05/25 13:58
Calcium 8.6 mg/dl (8.4-10.2) 01/05/25 13:58
Phosphorus 2.0 mg/dl (2.5-4.5) L 01/05/25 05:14
Vitamin B12 Cancelled 01/04/25 16:08
Patient Allergies
No Known Allergies Allergy (Verified 11/04/15 10:49)
Review of Systems
-
Unable to obtain full review of systems at this time due to: Other (Confusion)
History Source: Patient
All other systems: Reviewed and negative
Neuro: Negative Dizzy or Headache
Physical Exam
-
General: No Apparent Distress and Appears Stated Age
Eyes: Round OU, [place] Conjunctivae and No Ptosis
HEENT: Anicteric, Moist Mucous Membranes and Other (Surgically altered jaw)
Neck: Full Range of Motion
Respiratory: No Dyspnea
Cardiac: No JVD
GI: Non-distended
Skin: Unremarkable
Extremities: No Clubbing, No Cyanosis and No Edema
Psych: Negative Intact Judgement/Insight
Extended Neurological Exam
Mood & Affect: Mood Unremarkable and Affect Unremarkable
Attention Span & Concentration: Awake, Alert, Interactive and Moderate Difficulty with 2 Step Request
Memory: Able to Recall (Month, year, location) and Unable to Recall Personal History
Tremor: Hand Tremor Absent and Head Tremor Absent
Speech: Mildly Reduced Output and Dysarthric
Cranial Nerve II: Left Eye: Pupillary Size Unremarkable and Visual Oquendo Grossly Intact
Cranial Nerve II: Right Eye: Pupillary Size Unremarkable and Visual Oquendo Grossly Intact
Cranial Nerves III, IV, : Extraocular Movement: Extraocular Movement Full in all Directions
Cranial Nerve VII: Facial Symmetry: Normal Facial Symmetry
Cranial Nerve VIII: Hearing: Unremarkable Hearing to Normal Conversational Volume
Cranial Nerve XI: Shoulder Shrug: Unremarkable
Muscle Strength, Overall: Full in Upper Extremities
Muscle Bulk & Tone: Bulk Unremarkable and Tone Unremarkable
Pronator Drift: No Drift in Upper Extremities
Touch Sensation: Unremarkable
Coordination: [id number] Testing Unremarkable
Data Reviewed
-
MRI Head: Report Reviewed and Image Reviewed
EEG: Ordered
Labs: Ordered and Report Reviewed
Reviewed with: Physician, Nurse Practioner, Patient and Family
Old Records: Summarized
Past History
Past History
ED Past Medical History: Cancer (Muco-epidermoid carcinoma floor of mouth and tongue)
ED Past Surgical History: Appendectomy and Other (Jaw Surgery x 2)
Social History
Tobacco: Smoker
Alcohol: Occasional
Personal:
Living: with family
Medications
-
Medications:
Generic Name Dose Route Start Last Admin
Trade Name Freq PRN Reason Stop Dose Admin
Acetaminophen 650 mg 01/03/25 21:11
Acetaminophen 325 Mg Tablet PO 01/31/25 21:10
Q4HPRN PRN
mild pain/SUN/temp> 100.4F
Bupropion HCl 300 mg 01/04/25 08:00 01/05/25 08:21
Bupropion (24hr) Extended Release 300 Mg Tablet PO 02/01/25 07:59 300 mg
DAILY CAITLYN Administration
Ceftriaxone Sodium 1,000 mg 01/04/25 18:00 01/04/25 17:12
Ceftriaxone 1000 Mg / 10 Ml Vial IV 1,000 mg
Q24H CAITLYN Administration
Enoxaparin Sodium 40 mg 01/04/25 18:00 01/04/25 17:13
Enoxaparin Sodium 40 Mg/0.4 Ml Syringe SC 02/01/25 17:59 40 mg
QPM CAITLYN Administration
Heparin Sodium (Porcine) 500 unit 01/03/25 17:00
Heparin Flush Pf (100 Unit/Ml) 5 Ml Syringe IV 01/31/25 16:59
PER PROTOCOL CAITLYN
Azithromycin 500 mg in 250 mls @ 250 mls/hr 01/05/25 18:00
Zithromax Infusion IV
Q24H CAITLYN
Sodium Chloride 1,000 mls @ 100 mls/hr 01/05/25 15:15
Nss IV 01/06/25 01:14
.Q10H CAITLYN
Sodium Phosphate 20 meq/ 255 mls @ 63.75 mls/hr 01/05/25 15:03
Dextrose IV 01/05/25 19:02
ONCE ONE
Acyclovir Sodium 600 mg/ 62 mls @ 50 mls/hr 01/05/25 16:00
Sodium Chloride IV 01/15/25 15:59
Q8H CAITLYN
Lamotrigine 150 mg 01/04/25 08:00 01/05/25 08:21
Lamotrigine 100 Mg Tablet PO 02/01/25 07:59 150 mg
DAILY CAITLYN Administration
Levothyroxine Sodium 150 mcg 01/04/25 06:00 01/05/25 06:25
Levothyroxine 150 Mcg Tablet PO 02/01/25 05:59 150 mcg
DAILY @ 0600 CAITLYN Administration
Lorazepam 1 mg 01/04/25 16:07
Lorazepam 2 Mg/Ml Vial IV
ONCE PRN
for MRI
Miconazole Nitrate 0 applic 01/04/25 20:00 01/05/25 08:23
Miconazole Powder Bottle TOPICAL 02/01/25 19:59 1 applic
BID CAITLYN Administration
Nystatin 4 ml 01/03/25 22:00 01/05/25 12:59
Nystatin Oral Suspension 500,000 Units/5 Ml PO 01/31/25 21:59 4 ml
QID CAITLYN Administration
Sodium Chloride 0 flush 01/03/25 22:00
Sodium Chloride 0.9% (Flush) Syringe IV 01/31/25 21:59
PER PROTOCOL CAITLYN
Sodium Chloride 0.5 ml 01/04/25 16:15
Nss (Pf) 10 Ml Vial For Ativan 1 Mg Dose IV
ONCE PRN PRN
IV LORAZEPAM DILUTION
Sterile Water 10 ml 01/04/25 18:00 01/04/25 17:12
Sterile Water For Injection 10 Ml Vial IV 02/01/25 17:59 10 ml
Q24H CAITLYN Administration
Thiamine HCl 100 mg 01/04/25 18:00 01/05/25 08:21
Thiamine (100 Mg/Ml) 2 Ml Vial IV 01/07/25 17:59 100 mg
DAILY CAITLYN Administration
[2025-01-05] MEDS: NSS 1000 IV (16:56)
[2025-01-05] MEDS: ZITHROMAX INFUSION 250 IV (16:57)
[2025-01-05] MEDS: ROCEPHIN 1000 MG IV (16:57)
[2025-01-05] MEDS: LOVENOX 40 MG SC (16:57)
[2025-01-05] MEDS: ZOVIRAX INJECTION 62 MG IV (16:57)
[2025-01-05] MEDS: STERILE WATER FOR INJECTION 10 ML IV (16:58)
[2025-01-05 17:53] LABS: CSF Color Colorless
[2025-01-05 17:54] LABS: Red Cell Count/CSF 118 mm^3; White Cell Count/CSF 3 mm^3 (0-5)
[2025-01-05 17:55] LABS: CSF Color Colorless; CSF Tube # Clarity Clear; Red Cell Count/CSF 2 mm^3; White Blood Cell Count/CSF 1 mm^3 (0-5)
[2025-01-05] MEDS: SODIUM PHOSPHATE 255 MEQ IV (18:17)
[2025-01-06] MEDS: ZOVIRAX INJECTION 62 MG IV ×2 (00:44→08:55)
[2025-01-06 04:21] LABS: Hematocrit 25.8 % (37.0-47.0); Hemoglobin 9.3 g/dL (12.0-16.0); Mean Corp Hgb Conc. 36.0 g/dL (33.0-37.0); Mean Corpuscular Volume 118.3 fL (81.0-99.0); Nucleated Red Blood Cells % 0 %; Platelet Count 119 10^3/uL (130-400); Red Cell Dist. Width 13.2 % (11.5-14.5)
[2025-01-06 04:29] LABS: Blood Urea Nitrogen 12 mg/dl (7-17); Calcium 7.9 mg/dl (8.4-10.2); Carbon Dioxide 23 mmol/L (22-30); Chloride 110 mmol/L (98-107); Estimated Creatinine Clearance 92 ml/min; Glucose 90 mg/dl (70-99); Magnesium 1.7 mg/dl (1.6-2.3); Potassium 3.1 mmol/L (3.5-5.1); Sodium 134 mmol/L (135-145); eGFR > 60.00
[2025-01-06] MEDS: SYNTHROID 150 MCG PO (05:09)
[2025-01-06 07:24] VITALS: BP 92/69
[2025-01-06] MEDS: WELLBUTRIN XL (24 hour extended release) 300 MG PO (08:52)
[2025-01-06] MEDS: LAMICTAL 150 MG PO (08:52)
[2025-01-06] MEDS: MYCOSTATIN ORAL SUSPENSION 4 ML PO ×3 (08:52→22:23)
[2025-01-06] MEDS: THIAMINE INJECTION 100 MG IV (08:52)
[2025-01-06] MEDS: DESENEX/MITRAZOL/ZEASORB 1 APPLIC TOPICAL ×2 (08:54→19:43)
[2025-01-06] MEDS: NSS 1000 IV (08:58)
[2025-01-06] MEDS: ASPIR LOW (ENTERIC COATED) 81 MG PO (10:24)
[2025-01-06] MEDS: KCL 270 MEQ IV (10:24)
--- NOTE | 2025-01-06 10:54 | W.PN.HOSP.TC ---
Today's Communication/Plan
-
Assessment / Plan
Assessment / Plan
General: No Apparent Distress, comfortable, conversant
HEENT: NormoCephalic, Moist mucous membranes, status post mandibular/neck surgery
Respiratory: Clear and Non Labored Respirations
Cardiac: S1/S2 and Regular Rhythm; No Rub or Gallop
GI: Soft, Non Tender, Non Distended and Normal Bowel Sounds
Musculoskeletal: No Edema, no deformity
Skin: Warm and dry
: [place] catheter draining clear yellow urine
Neuro: Awake, alert, intermittently confused, no focal weakness
Psych: Calm and cooperative
Ms. 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 Rafael Bajwa at [facility], recently treated with
radiation for lung nodules), hypothyroidism anxiety), and recent thrush (treated with nystatin swish and swallow) who presented for evaluation of encephalopathy. Her reports ongoing weakness for the past few weeks with a significant decline
since the Thursday prior to arrival (12/30/2024) when she was unable to ambulate on her own due to balance issues and began hallucinating. In the ED she was afebrile and normotensive. She had a mild hypokalemia potassium of 3.4 and mildly elevated
LFTs. Her respiratory swab was negative for COVID with positive for influenza B. Chest imaging showed multiple likely chronic abnormalities with possible pneumonia at the left lung base. CT brain showed no acute abnormalities but did show chronic
appearing infarcts in the right frontal lobe salazar radiata and right cerebellar hemisphere. She was started on IV fluids and antibiotics and admitted for further evaluation and management.
Metabolic encephalopathy:
- Etiology still unclear
- Mental status improved since admission but still has some periods of confusion, not at baseline mental status
- MRI brain shows evidence of encephalitis, LP performed 01/05 but CSF studies are negative for infection so far
- Neurology following, EEG done this morning 01/06/2025 with unremarkable findings
- Continuing antibiotics for now
- Now tolerating p.o. diet
Electrolyte abnormality:
- Hypokalemic and hyponatremic on labs this morning
- Potassium 3.1, sodium 134
- IV potassium chloride given
- Restarted NS at 100 cc/h
- Will monitor
Acute urinary retention:
- [place] in place
- Trial of void prior to discharge
Abnormal LFTs:
- Mild, improving
- Will monitor
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
- Status post surgery including mandibular resection, chemotherapy, and radiation
- Reportedly received radiation to the chest for lung nodules
- follows with Dr. Bajwa @ [facility] ([facility])
Thrush:
- Recently started on treatment by PCP, will continue
DVT prophylaxis: Lovenox
CODE STATUS: Full code
Anticipated Discharge: > 48 hours
Subjective/Interval History
-
Date of Service: January 06, 2025
Patient was undergoing EEG this morning. CSF studies are negative for infection.
Objective Data
-
Labs:
Laboratory Results
01/06/25
03:46
WBC 10.3
Hgb 9.3 L
Hct 25.8 L
Plt Count 119 L
Sodium 134 L
Potassium 3.1 L
Chloride 110 H
Carbon Dioxide 23
BUN 12
Creatinine 0.4 L
Glucose 90
Calcium 7.9 L
Vital Signs:
Vital Signs
Temp Pulse Resp BP Pulse Ox
98.6 F 105 18 92/69 99
01/06/25 07:24 01/06/25 07:24 01/06/25 07:24 01/06/25 07:24 01/06/25 07:24
I&O
01/05/25 01/06/25 01/07/25
06:59 06:59 06:59
Intake Total 1862 / 1862 1710 / 1710
Output Total 1210 / 1210 475 / 475
Balance 652 / 652 1235 / 1235
Review of Systems
-
History Source: Patient
All other systems: Reviewed and negative
Physical Exam
-
General: No Apparent Distress
[2025-01-06] MEDS: MYCOSTATIN ORAL SUSPENSION PO (12:21)
--- NOTE | 2025-01-06 13:35 | PTOTSP ---
Speech Language Pathology
VIDEOFLUOROSCOPIC SWALLOWING EXAMINATION (VSE) completed. Mod-severe oral and mild pharyngeal dysphagia noted. No penetration/aspiration noted with trace to mild pharyngeal residue.
Recommend:
(1) IDDSI Level 4 (Puree) and Thin Liquids
(2) Aspiration precautions: sit upright, single sips, slow rate, ensure oral cavity clear post P.O. intake (use yankauer as needed)
(3) Meds whole in puree
(4) INCIDENT RESPONSE CONSULTANT to continue to follow for dysphagia and cognitive-linguistic tx
--- NOTE | 2025-01-06 13:54 | EEG.RPT ---
Electroencephalogram Report
Recording
Date of EE01/06/25
Type of EEG: Routine
Length of EEG recordin minutes
Done with Video Recording: Yes
Patient Status: Inpatient
Recording Conditions: Awake and Drowsy
Hyperventilation Performed: No
Photic Stimulation Performed: Yes
Report
LESS THAN 1 HOUR EEG INTERPRETATION:
Unremarkable EEG for age
CLINICAL CORRELATION:
A normal EEG does not rule out a diagnosis of epilepsy. If clinical suspicion for seizure persists, a prolonged recording may be warranted.
Clinical correlation is advised.
METHODS:
A 21 channel digitized electroencephalogram (EEG) was performed using the 10/20 international system of electrode placement and one-lead of ECG recorded. The Empressr quantitative EEG system was utilized.
ELECTROENCEPHALOGRAPHER IMPRESSION(S):
Quality of study
Fair due to muscle artifact
Background
There was an unremarkable anterior-posterior voltage gradient of alpha frequency.
With eye opening the background activity changed to a low voltage mixture of frequencies.
There were no significant asymmetries of background activity noted.
Sleep
Drowsiness present
Photic Stimulation
No activation
ECG
Normal sinus rhythm
--- NOTE | 2025-01-06 14:10 | CM ---
CM following re: discharge planning.
Reviewed pt's chart, met with pt.
PT and OT evaluations pending
Per a plan is for SNF for a short term rehab and following SNFs requested: [facility], [facility] and [facility]. CM will make a referral to requested SNFs after PT/OT evaluations.
D/C plan: preferred SNF.
CM will follow with discharge plan updates as hospitalization progresses
[2025-01-06 15:18] VITALS: BP 92/55
[2025-01-06] MEDS: ROCEPHIN 1000 MG IV (16:56)
[2025-01-06] MEDS: LOVENOX 40 MG SC (16:56)
[2025-01-06] MEDS: STERILE WATER FOR INJECTION 10 ML IV (16:56)
[2025-01-06] MEDS: ZITHROMAX INFUSION 250 IV (16:56)
[2025-01-06 23:36] VITALS: BP 96/57
[2025-01-07] MEDS: SYNTHROID 150 MCG PO (05:06)
[2025-01-07] MEDS: MYCOSTATIN ORAL SUSPENSION 4 ML PO ×4 (08:22→21:58)
[2025-01-07] MEDS: WELLBUTRIN XL (24 hour extended release) 300 MG PO (08:23)
[2025-01-07] MEDS: ASPIR LOW (ENTERIC COATED) 81 MG PO (08:23)
[2025-01-07] MEDS: LAMICTAL 150 MG PO (08:23)
[2025-01-07] MEDS: THIAMINE INJECTION 100 MG IV (08:24)
[2025-01-07] MEDS: DESENEX/MITRAZOL/ZEASORB 1 APPLIC TOPICAL ×2 (08:26→19:25)
[2025-01-07 08:48] VITALS: BP 103/63
[2025-01-07 08:55] LABS: Hematocrit 26.6 % (37.0-47.0); Hemoglobin 9.4 g/dL (12.0-16.0); Mean Corp Hgb Conc. 35.3 g/dL (33.0-37.0); Mean Corpuscular Volume 120.4 fL (81.0-99.0); Nucleated Red Blood Cells % 0 %; Platelet Count 113 10^3/uL (130-400); Red Cell Dist. Width 13.4 % (11.5-14.5)
[2025-01-07 09:22] LABS: Blood Urea Nitrogen 7 mg/dl (7-17); Calcium 8.4 mg/dl (8.4-10.2); Carbon Dioxide 22 mmol/L (22-30); Chloride 112 mmol/L (98-107); Estimated Creatinine Clearance 92 ml/min; Glucose 77 mg/dl (70-99); Potassium 3.5 mmol/L (3.5-5.1); Sodium 140 mmol/L (135-145); eGFR > 60.00
[2025-01-07 10:00] VITALS: BP 116/84; PULSE 112
[2025-01-07 10:04] VITALS: BP 116/84; PULSE 112
--- NOTE | 2025-01-07 10:37 | W.PN.HOSP.TC ---
Today's Communication/Plan
-
Assessment / Plan
Assessment / Plan
General: No Apparent Distress, comfortable, conversant
HEENT: NormoCephalic, Moist mucous membranes, status post mandibular/neck surgery
Respiratory: Clear and Non Labored Respirations
Cardiac: S1/S2 and Regular Rhythm; No Rub or Gallop
GI: Soft, Non Tender, Non Distended and Normal Bowel Sounds
Musculoskeletal: No Edema, no deformity
Skin: Warm and dry
: [place] catheter draining clear yellow urine
Neuro: Awake, alert, cognitive deficit, intermittently confused, no focal weakness
Psych: Calm and cooperative
Ms. 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 Rafael Bajwa at [facility], recently treated with
radiation for lung nodules), hypothyroidism anxiety), and recent thrush (treated with nystatin swish and swallow) who presented for evaluation of encephalopathy. Her reports ongoing weakness for the past few weeks with a significant decline
since the Thursday prior to arrival (12/30/2024) when she was unable to ambulate on her own due to balance issues and began hallucinating. In the ED she was afebrile and normotensive. She had a mild hypokalemia potassium of 3.4 and mildly elevated
LFTs. Her respiratory swab was negative for COVID with positive for influenza B. Chest imaging showed multiple likely chronic abnormalities with possible pneumonia at the left lung base. CT brain showed no acute abnormalities but did show chronic
appearing infarcts in the right frontal lobe salazar radiata and right cerebellar hemisphere. She was started on IV fluids and antibiotics and admitted for further evaluation and management.
Metabolic encephalopathy:
- Etiology still unclear, likely contributed to by acute influenza B infection
- Mental status improved since admission but still has some periods of confusion, not at baseline mental status
- MRI brain shows evidence of encephalitis and 2 chronic strokes, LP performed 01/05 but CSF studies are negative for infection so far
- Neurology following, EEG done 01/06/2025 with unremarkable findings
- Continuing antibiotics for now with ceftriaxone and azithromycin, discontinue acyclovir
- Started on low-dose aspirin after noting chronic appearing infarcts on brain imaging
- Evaluated by CUSTOMER CARE ASSISTANT, video swallow showing moderate to severe oral and mild pharyngeal dysphagia, appreciate recommendations for modified diet
- Working with PT/OT who are recommending SNF when ready for discharge
Electrolyte abnormality:
- Electrolytes within normal limits this morning
- Will monitor
Acute urinary retention:
- [place] in place
- Trial of void prior to discharge
Abnormal LFTs:
- Mild, improving
- Will monitor
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
- Status post surgery including mandibular resection, chemotherapy, and radiation
- Reportedly received radiation to the chest for lung nodules
- follows with Dr. Bajwa @ [facility] ([facility])
Thrush:
- Recently started on treatment by PCP, will continue
DVT prophylaxis: Lovenox
CODE STATUS: Full code
Anticipated Discharge: > 48 hours
Subjective/Interval History
-
Date of Service: January 07, 2025
Patient was seen and examined at bedside this morning. Had just manage working with PT/OT and was about to work with CUSTOMER CARE ASSISTANT.
Objective Data
-
Labs:
Laboratory Results
01/07/25
08:31
WBC 6.2
Hgb 9.4 L
Hct 26.6 L
Plt Count 113 L
Sodium 140
Potassium 3.5
Chloride 112 H
Carbon Dioxide 22
BUN 7
Creatinine 0.5 L
Glucose 77
Calcium 8.4
Vital Signs:
Vital Signs
Temp Pulse Resp BP Pulse Ox
98.5 F 109 18 103/63 97
01/07/25 07:39 01/07/25 08:48 01/07/25 07:39 01/07/25 08:48 01/07/25 07:39
I&O
01/06/25 01/07/25 01/08/25
06:59 06:59 06:59
Intake Total 1710 / 1710 480 / 480
Output Total 475 / 475 1125 / 1125
Balance 1235 / 1235 -645 / -645
Review of Systems
-
History Source: Patient
All other systems: Reviewed and negative
Physical Exam
-
General: No Apparent Distress
[2025-01-07 15:12] VITALS: BP 117/72
[2025-01-07] MEDS: ZITHROMAX 250 MG PO (15:17)
[2025-01-07] MEDS: LOVENOX 40 MG SC (17:03)
[2025-01-07] MEDS: STERILE WATER FOR INJECTION 10 ML IV (17:03)
[2025-01-07] MEDS: ROCEPHIN 1000 MG IV (17:03)
--- NOTE | 2025-01-07 18:04 | PTCARENOTE ---
Patient AAOx2-3 this shift, confused conversation and drowsy, wakes to verbal stimuli and participates with care before falling back asleep, states no concerns throughout shift. OOB to chair for ~2 hours this AM with PT/OT. Garbled speech and
occasional oral secretions, poor appetite, tolerates meds whole in applesauce, diet advanced per MD with ensures. CHG bath and mouth care/oral suctioning provided, bed alarm in place, [place] for acute retention to be pulled in AM per MD.
[2025-01-07 23:32] VITALS: BP 120/81
[2025-01-07 23:59] LABS: Angiotensin-1- Converting, CSF 1.0 U/L (0.0-2.5)
[2025-01-08] MEDS: SYNTHROID 150 MCG PO (05:02)
[2025-01-08 05:19] LABS: ALT (SGPT) 24 U/L (0-35); AST (SGOT) 34 U/L (14-36); Albumin 2.8 g/dl (3.5-5.0); Alkaline Phosphatase 87 U/L (38-126); Blood Urea Nitrogen 8 mg/dl (7-17); Calcium 8.5 mg/dl (8.4-10.2); Carbon Dioxide 23 mmol/L (22-30); Chloride 111 mmol/L (98-107); Estimated Creatinine Clearance 92 ml/min; Glucose 75 mg/dl (70-99); Potassium 3.1 mmol/L (3.5-5.1); Sodium 136 mmol/L (135-145); Total Protein 5.5 g/dl (6.3-8.2); eGFR > 60.00
--- NOTE | 2025-01-08 06:00 | PTCARENOTE ---
After teaching, patient agreed to having [place] catheter removed per doctor's order. [place] removed intact without any difficulties at 0600. Patient on Time and Amount. Due to void by 12noon.
[2025-01-08 07:22] VITALS: BP 112/76
[2025-01-08] MEDS: ZITHROMAX 250 MG PO (07:45)
[2025-01-08] MEDS: ASPIR LOW (ENTERIC COATED) 81 MG PO (07:45)
[2025-01-08] MEDS: WELLBUTRIN XL (24 hour extended release) 300 MG PO (07:45)
[2025-01-08] MEDS: MYCOSTATIN ORAL SUSPENSION 4 ML PO ×4 (07:45→21:35)
[2025-01-08] MEDS: LAMICTAL 150 MG PO (07:45)
[2025-01-08] MEDS: DESENEX/MITRAZOL/ZEASORB 1 APPLIC TOPICAL ×2 (07:51→21:38)
[2025-01-08] MEDS: KLOR-CON 40 MEQ PO (10:29)
--- NOTE | 2025-01-08 12:40 | W.PN.HOSP.TC ---
Today's Communication/Plan
-
Assessment / Plan
Assessment / Plan
General: No Apparent Distress, comfortable, conversant
HEENT: NormoCephalic, Moist mucous membranes, status post mandibular/neck surgery
Respiratory: Clear and Non Labored Respirations
Cardiac: S1/S2 and Regular Rhythm; No Rub or Gallop
GI: Soft, Non Tender, Non Distended and Normal Bowel Sounds
Musculoskeletal: No Edema, no deformity
Skin: Warm and dry
: [place] catheter draining clear yellow urine
Neuro: Awake, alert, cognitive deficit, intermittently confused, no focal weakness
Psych: Calm and cooperative
Ms. 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 Rafael Bajwa at [facility], recently treated with
radiation for lung nodules), hypothyroidism anxiety), and recent thrush (treated with nystatin swish and swallow) who presented for evaluation of encephalopathy. Her reports ongoing weakness for the past few weeks with a significant decline
since the Thursday prior to arrival (12/30/2024) when she was unable to ambulate on her own due to balance issues and began hallucinating. In the ED she was afebrile and normotensive. She had a mild hypokalemia potassium of 3.4 and mildly elevated
LFTs. Her respiratory swab was negative for COVID with positive for influenza B. Chest imaging showed multiple likely chronic abnormalities with possible pneumonia at the left lung base. CT brain showed no acute abnormalities but did show chronic
appearing infarcts in the right frontal lobe salazar radiata and right cerebellar hemisphere. She was started on IV fluids and antibiotics and admitted for further evaluation and management.
Metabolic encephalopathy:
- Continues to demonstrate cognitive deficits, however encephalopathy has resolved
- Etiology still unclear, likely contributed to by acute influenza B infection, suspicion that her symptoms are due to strokes
- MRI brain shows evidence of encephalitis and 2 chronic strokes, LP performed 01/05 but CSF studies are negative for infection so far
- Neurology following, EEG done 01/06/2025 with unremarkable findings
- Brain imaging shows chronic appearing strokes although symptom onset was approximately 2 weeks prior to arrival, started on low-dose aspirin and high intensity statin
- Completed a course of ceftriaxone and azithromycin, discontinued acyclovir
- Evaluated by MANAGEMENT PSYCHOLOGIST, video swallow showing moderate to severe oral and mild pharyngeal dysphagia, appreciate recommendations for modified diet
- Working with PT/OT who are recommending SNF when ready for discharge
- Will follow-up with neurology regarding possibility that CVA is contributing to her symptoms
- Anticipate patient will be medically stable for discharge to SNF in the next 24 to 48 hours
Electrolyte abnormality:
- Hypokalemia on labs this morning with a serum potassium of 3.1
- Repleted
- Will monitor
Acute urinary retention:
- [place] removed this morning for voiding trial
- Monitor for retention
Abnormal LFTs:
- Mild, resolved
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
- Status post surgery including mandibular resection, chemotherapy, and radiation
- Reportedly received radiation to the chest for lung nodules
- follows with Dr. Bajwa @ [facility] ([facility])
Thrush:
- Recently started on treatment by PCP, will continue
DVT prophylaxis: Lovenox
CODE STATUS: Full code
Anticipated Discharge: 24 - 48 hours
Subjective/Interval History
-
Date of Service: January 08, 2025
Patient was seen and examined at bedside this morning. Still demonstrating cognitive deficits. However encephalopathy has resolved. She is eager to go home.
Objective Data
-
Labs:
Laboratory Results
01/08/25
04:40
Sodium 136
Potassium 3.1 L
Chloride 111 H
Carbon Dioxide 23
BUN 8
Creatinine 0.5 L
Glucose 75
Calcium 8.5
Total Bilirubin 1.1
AST 34
ALT 24
Alkaline Phosphatase 87
Vital Signs:
Vital Signs
Temp Pulse Resp BP Pulse Ox
98.7 F 116 20 112/76 95
01/08/25 07:22 01/08/25 07:22 01/08/25 07:22 01/08/25 07:22 01/08/25 07:22
I&O
01/07/25 01/08/25 01/09/25
06:59 06:59 06:59
Intake Total 480 / 480 960 / 960
Output Total 1125 / 1125 950 / 950
Balance -645 / -645
Review of Systems
-
History Source: Patient
All other systems: Reviewed and negative
Physical Exam
-
General: No Apparent Distress
[2025-01-08 15:45] VITALS: BP 102/64
[2025-01-08] MEDS: STERILE WATER FOR INJECTION IV (17:10)
[2025-01-08] MEDS: LOVENOX 40 MG SC (17:10)
[2025-01-08] MEDS: LIPITOR 40 MG PO (17:16)
[2025-01-08 19:00] VITALS: BP 91/76
[2025-01-08 23:00] VITALS: BP 107/74
[2025-01-09] VITALS (7 sets, daily range): BP systolic 96–115; BP diastolic 62–76
[2025-01-09] MEDS: SYNTHROID 150 MCG PO (06:03)
[2025-01-09 06:29] LABS: Paraneoplastic Ab IgG, CSF None Detected (None Detected)
[2025-01-09 06:41] LABS: CSF VDRL (T. pallidum) Non Reactive (Non Reactive)
--- NOTE | 2025-01-09 08:35 | W.PN.HOSP.TC ---
Today's Communication/Plan
-
TTE
will update later today
Assessment / Plan
Assessment / Plan
Ms. 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 Rafael Bajwa at [facility], recently treated with
radiation for lung nodules), hypothyroidism anxiety), and recent thrush (treated with nystatin swish and swallow) who presented for evaluation of encephalopathy. Her reports ongoing weakness for the past few weeks with a significant decline
since the Thursday prior to arrival (12/30/2024) when she was unable to ambulate on her own due to balance issues and began hallucinating. In the ED she was found to be positive for influenza B, with possible LLL pneumonia. CT head imaging with
finding of 2 old strokes.
CXR 01/03/25
IMPRESSION:
Predominantly thickened linear opacity in the right midlung most likely representing subsegmental atelectasis.
Minimal patchy opacity in the left lung base which could represent subsegmental atelectasis, less likely pneumonia.
Right chest port with tip at the level of the cardiac right atrium.
HEAD CT
IMPRESSION:
1. No CT evidence for acute intracranial hemorrhage or transcortical infarct.
2. Mild diffuse cerebral and cerebellar volume loss.
3. Mild periventricular white matter leukoaraiosis.
4. 7.5 mm chronic white matter infarct in the right frontal lobe salazar radiata.
5. 5.6 mm chronic infarct in the right cerebellar hemisphere.
Brain MRI
IMPRESSION:
MRI findings are suspicious for a nonspecific encephalopathy with mild symmetric restricted diffusion and FLAIR hyperintense signal in the cortices of the bilateral frontal lobes, and to a lesser degree the bilateral parieto-occipital lobes.
Linear filling defect in the central lumen of the left sigmoid sinus. Differential considerations would include nonocclusive thrombus or flow related artifact.
Metabolic encephalopathy
Influenza B and superimposed CAP
Prior CVA
- Continues to demonstrate cognitive deficits, however encephalopathy has resolved
- MRI brain shows evidence of encephalitis and 2 chronic strokes, LP performed 01/05 and CSF studies are negative for infection so far
- Neurology following, EEG done 01/06/2025 with unremarkable findings
- Brain imaging shows chronic appearing strokes although symptom onset was approximately 2 weeks prior to arrival, started on low-dose aspirin and high intensity statin
- Completed a course of ceftriaxone and azithromycin, discontinued acyclovir
- Evaluated by FISH PROCESSOR, video swallow showing moderate to severe oral and mild pharyngeal dysphagia, appreciate recommendations for modified diet
- Working with PT/OT who are recommending SNF when ready for discharge
- TTE ordered today to complete CVA work-up; possible DC within 24 hours
Electrolyte abnormality:
-repleted
Acute urinary retention:
- [place] removed this morning for voiding trial
- Monitor for retention
Abnormal LFTs:
- Mild, resolved
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
- Status post surgery including mandibular resection, chemotherapy, and radiation
- Reportedly received radiation to the chest for lung nodules
- follows with Dr. Bajwa @ [facility] ([facility])
Thrush:
- Recently started on treatment by PCP, will continue
DVT prophylaxis: Lovenox
CODE STATUS: Full code
Anticipated Discharge: Within 24 hours
Subjective/Interval History
-
Date of Service: January 09, 2025
awoken from sleep
feels ready to leave the hospital
no new complaints, able to tell me why she is here and when her last surgery was
Objective Data
-
Vital Signs:
Vital Signs
Temp Pulse Resp BP Pulse Ox
98.1 F 102 18 113/76 97
01/09/25 07:27 01/09/25 07:27 01/09/25 07:27 01/09/25 07:27 01/09/25 07:27
I&O
01/08/25 01/09/25 01/10/25
06:59 06:59 06:59
Intake Total 960 / 960 1020 / 1020
Output Total 950 / 950
Balance 1020 / 1020
Review of Systems
-
History Source: Patient
All other systems: Reviewed and negative
Physical Exam
-
General: No Apparent Distress
HEENT: Other (status post mandibular/neck surgery)
Respiratory: Clear to Auscultation; Negative Wheezes
Cardiac: Regular Rhythm and S1/S2
GI: Soft and Nontender
Musculoskeletal: No Edema
Skin: Warm and Dry; Negative Rash
Neuro: AO x 3
Psych: Calm
Data Reviewed
-
Diagnostic Radiology: Report Reviewed by me
Labs: Labs Reviewed by me
[2025-01-09] MEDS: MYCOSTATIN ORAL SUSPENSION 4 ML PO ×4 (09:05→21:06)
[2025-01-09] MEDS: WELLBUTRIN XL (24 hour extended release) 300 MG PO (09:05)
[2025-01-09] MEDS: ASPIR LOW (ENTERIC COATED) 81 MG PO (09:05)
[2025-01-09] MEDS: LAMICTAL 150 MG PO (09:05)
[2025-01-09] MEDS: DESENEX/MITRAZOL/ZEASORB 1 APPLIC TOPICAL ×2 (09:07→20:15)
[2025-01-09 11:18] LABS: TSH 1.94 uIU/ml (0.47-4.68)
[2025-01-09 13:31] LABS: Blood Urea Nitrogen 10 mg/dl (7-17); Calcium 8.3 mg/dl (8.4-10.2); Carbon Dioxide 24 mmol/L (22-30); Chloride 106 mmol/L (98-107); Estimated Creatinine Clearance 92 ml/min; Glucose 86 mg/dl (70-99); Potassium 3.1 mmol/L (3.5-5.1); Sodium 134 mmol/L (135-145); eGFR > 60.00
--- NOTE | 2025-01-09 15:12 | CM ---
CM following re: discharge planning.
Reviewed pt's chart, met with pt and met with pt's yesterday.
PT and OT evaluations noted - SNF level of care recommended.
Both pt and her are aware, expressed their agreement. pt stated he works in [place] and he preferred a SNF in [facility]. Following SNFs preferred: [facility], [facility], [facility], [facility], [facility].
[facility], [facility] and [facility] offered a bed. [facility] decline a referral. [facility] requested more information.
CM spoke to [facility] liaison and she stated she is working with [facility], [facility] and [facility] to review a referral again for final determination
D/C plan: preferred SNF.
CM will follow with discharge plan updates as hospitalization progresses
[2025-01-09] MEDS: KCL 260 MEQ IV (16:46)
[2025-01-09] MEDS: KLOR-CON 40 MEQ PO (16:46)
[2025-01-09] MEDS: ATIVAN 1 MG IV (16:54)
[2025-01-09] MEDS: STERILE WATER FOR INJECTION IV (18:05)
[2025-01-09 18:07] LABS: Magnesium 1.4 mg/dl (1.6-2.3)
[2025-01-09] MEDS: LOVENOX 40 MG SC (18:32)
[2025-01-09] MEDS: LIPITOR 40 MG PO (18:32)
[2025-01-09] MEDS: MAGNESIUM SULFATE 50 IV (21:06)
[2025-01-10] VITALS (7 sets, daily range): BP systolic 95–124; BP diastolic 56–86
[2025-01-10 05:14] LABS: Blood Urea Nitrogen 8 mg/dl (7-17); Calcium 8.4 mg/dl (8.4-10.2); Carbon Dioxide 24 mmol/L (22-30); Chloride 107 mmol/L (98-107); Estimated Creatinine Clearance 92 ml/min; Glucose 87 mg/dl (70-99); Magnesium 1.9 mg/dl (1.6-2.3); Potassium 3.7 mmol/L (3.5-5.1); Sodium 137 mmol/L (135-145); eGFR > 60.00
[2025-01-10] MEDS: SYNTHROID 150 MCG PO (05:18)
[2025-01-10 05:28] LABS: Hematocrit 28.4 % (37.0-47.0); Hemoglobin 9.8 g/dL (12.0-16.0); Mean Corp Hgb Conc. 34.5 g/dL (33.0-37.0); Mean Corpuscular Volume 116.9 fL (81.0-99.0); Platelet Count 153 10^3/uL (130-400); Red Cell Dist. Width 14.0 % (11.5-14.5)
[2025-01-10 06:16] LABS: Lyme Disease DNA by PCR Not Detected; Lyme Source CSF
[2025-01-10] MEDS: WELLBUTRIN XL (24 hour extended release) 300 MG PO (08:37)
[2025-01-10] MEDS: LAMICTAL 150 MG PO (08:37)
[2025-01-10] MEDS: ASPIR LOW (ENTERIC COATED) 81 MG PO (08:37)
[2025-01-10] MEDS: MYCOSTATIN ORAL SUSPENSION 4 ML PO ×4 (08:38→22:19)
[2025-01-10] MEDS: DESENEX/MITRAZOL/ZEASORB 1 APPLIC TOPICAL ×2 (08:41→20:24)
--- NOTE | 2025-01-10 08:53 | VATNOTE ---
Called to check port by primary RN Pt. had removed dressing over rt. port and was scratching surrounding skin raw. Scratch vázquez, abraded areas and new ecchymotic areas noted. Pt. is confused. Port de-accessed. Skin cleaned with mild soap and
water then patted dry. Primary RN aware. Per Hospitalist note on 01/09/25 pt. may be discharged today. Will follow and re-access port if needed. Pt. does have a peripheral IV access.
--- NOTE | 2025-01-10 08:53 | W.PN.HOSP.TC ---
Today's Communication/Plan
-
TTE
MRA
follow up further Neurology recommendations
Assessment / Plan
Assessment / Plan
Ms. 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 Rafael Bajwa at [facility], recently treated with
radiation for lung nodules), hypothyroidism anxiety), and recent thrush (treated with nystatin swish and swallow) who presented for evaluation of encephalopathy. Her reports ongoing weakness for the past few weeks with a significant decline
since the Thursday prior to arrival (12/30/2024) when she was unable to ambulate on her own due to balance issues and began hallucinating. In the ED she was found to be positive for influenza B, with possible LLL pneumonia. CT head imaging with
finding of 2 old strokes.
CXR 01/03/25
IMPRESSION:
Predominantly thickened linear opacity in the right midlung most likely representing subsegmental atelectasis.
Minimal patchy opacity in the left lung base which could represent subsegmental atelectasis, less likely pneumonia.
Right chest port with tip at the level of the cardiac right atrium.
HEAD CT
IMPRESSION:
1. No CT evidence for acute intracranial hemorrhage or transcortical infarct.
2. Mild diffuse cerebral and cerebellar volume loss.
3. Mild periventricular white matter leukoaraiosis.
4. 7.5 mm chronic white matter infarct in the right frontal lobe salazar radiata.
5. 5.6 mm chronic infarct in the right cerebellar hemisphere.
Brain MRI
IMPRESSION:
MRI findings are suspicious for a nonspecific encephalopathy with mild symmetric restricted diffusion and FLAIR hyperintense signal in the cortices of the bilateral frontal lobes, and to a lesser degree the bilateral parieto-occipital lobes.
Linear filling defect in the central lumen of the left sigmoid sinus. Differential considerations would include nonocclusive thrombus or flow related artifact.
Metabolic encephalopathy
Influenza B and superimposed CAP
Prior CVA
- Continues to demonstrate cognitive deficits, however encephalopathy has resolved
- MRI brain shows evidence of encephalitis and 2 chronic strokes, LP performed 01/05 and CSF studies are negative for infection so far; neg paraneoplastic ab, Lyme and VDRL not detected
- Neurology following, EEG done 01/06/2025 with unremarkable findings
- Brain imaging shows chronic appearing strokes although symptom onset was approximately 2 weeks prior to arrival, started on low-dose aspirin and high intensity statin
- Completed a course of ceftriaxone and azithromycin, discontinued acyclovir
- Evaluated by [facility], video swallow showing moderate to severe oral and mild pharyngeal dysphagia, appreciate recommendations for modified diet
- Working with PT/OT who are recommending SNF when ready for discharge
- TTE ordered today to complete CVA work-up
- MRA ordered to follow up on possible nonocclusive thrombus left sigmoid sinus
Electrolyte abnormality:
-repleted
Acute urinary retention:
- [place] removed this morning for voiding trial
- Monitor for retention
Abnormal LFTs:
- Mild, resolved
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
- Status post surgery including mandibular resection, chemotherapy, and radiation
- Reportedly received radiation to the chest for lung nodules
- follows with Dr. Bajwa @ [facility] ([facility])
Thrush:
- Recently started on treatment by PCP, will continue
DVT prophylaxis: Lovenox
CODE STATUS: Full code
Anticipated Discharge: 24 - 48 hours
Subjective/Interval History
-
Date of Service: January 10, 2025
she is confused this morning
she is hoping to go home
Objective Data
-
Labs:
Laboratory Results
01/10/25
04:35
WBC 6.5
Hgb 9.8 L
Hct 28.4 L
Plt Count 153 D
Sodium 137
Potassium 3.7
Chloride 107
Carbon Dioxide 24
BUN 8
Creatinine 0.5 L
Glucose 87
Calcium 8.4
Vital Signs:
Vital Signs
Temp Pulse Resp BP Pulse Ox
98.8 F 105 18 124/86 98
01/10/25 07:26 01/10/25 07:26 01/10/25 07:26 01/10/25 07:26 01/10/25 07:26
I&O
01/09/25 01/10/25 01/11/25
06:59 06:59 06:59
Intake Total 1020 / 1020 530 / 530
Balance 1020 / 1020 530 / 530
Review of Systems
-
History Source: Patient
All other systems: Reviewed and negative
Physical Exam
-
General: No Apparent Distress
HEENT: Other (status post mandibular/neck surgery)
Respiratory: Clear to Auscultation; Negative Wheezes
Cardiac: Regular Rhythm and S1/S2
GI: Soft and Nontender
Musculoskeletal: No Edema
Skin: Warm and Dry; Negative Rash
Neuro: AO x 3
Psych: Calm
Data Reviewed
-
Diagnostic Radiology: Report Reviewed by me
Labs: Labs Reviewed by me
--- NOTE | 2025-01-10 10:13 | PTCARENOTE ---
Pt here for Echo and Bubble Study. Left antecubital 22 G PC site flushed easily ( site with slight ecchymosis but rapid blood return and no edema, IV site placed this AM). Bubble Study completed per protocol with aseptic technique, pt tolerated
well. Denies chest pain, denies dizziness. IV site continues to flush easily. No change in pt status.
--- NOTE | 2025-01-10 13:56 | CM ---
Addendum entered by Cheryle Darby 01/10/25 15:55:
CM spoke with Patient and he agreed to accept [facility] when medically appropriate. CM will continue to follow for discharge planning needs.
Addendum entered by Cheryle Darby 01/10/25 15:52:
CM reached out to patient to confirm acceptance of bed at [facility], VM left requesting call back.
Original Note:
Patient accepted at [facility] for tomorrow pending physician assessment. CM will continue to follow for discharge planning.
Plan; SNF
--- NOTE | 2025-01-10 14:57 | CON.ID ---
Consultation
-
Date/Time Consultation Requested: January 10, 2025 1432
Date/Time Consultation Performed: January 10, 2025 1500
Requesting Provider: Dr. Patsy Trinh
Performing Provider: Dr. Nishi Gutierrez
Reason for Consultation: Confusion, influenza B positive
Chief Complaint / Past History
Chief Complaint
Change in mental status
History of Present Illness
History obtained from the patient's at bedside as patient unable to provide a full meaningful history. She is a 59-year-old female with history of hypothyroidism, head and neck cancer diagnosed 2016 status post several resections and
treated with Keytruda. She was then found to have lung metastases and underwent radiation, completed September 2024. Since radiation therapy patient has been feeling more fatigued and weak but still able to carry out activities of daily living. About
2 weeks ago, she stopped eating. She she saw her PCP who noted oral thrush and prescribed nystatin swish and swallow. Patient did not improve. She continued to have poor appetite On December 30 patient abruptly became confused, hallucinating,
also with moist cough. She was weak, unable to get up from bed. No fevers or chills. No headache. No sinus congestion. No sore throat. No chest pain. No abdominal pain or diarrhea at home. No urine symptoms. She does not go out except to
doctors appointments. She is not up-to-date with influenza vaccine. No pets. No known ill-contact. On January 03, called EMS and she was brought to the ER. She has been afebrile, normal white count. COVID-negative. Influenza B positive
which was not treated in the hospital. Blood cultures negative. UA negative. MRI of the brain shows nonspecific signal in the cortices of the bilateral frontal lobes and to a lesser degree the bilateral parietal�occipital lobes. Lumbar puncture
CSF with 1 white blood cells, normal glucose, normal pleural protein, negative culture, negative meningitis�encephalitis PCR panel, negative VDRL. Per patient remains confused. She is also very fidgety and restless today. She was trying
to get out of bed even though she was too weak. Appetite remains poor.
Past History
Additional Past Medical History:
Hypothyroidism
Mucoepidermoid carcinoma of the floor of the mouth and tongue s/p resections 2019 and Keytruda
Lung metastasis s/p XRT 09/2024
Anxiety/depression
Appendectomy
Rotator cuff repair
Allergy History:
No Known Allergies Allergy (Verified 11/04/15 10:49)
Medications Reviewed: Yes
Current Antibiotics:
none
Social History
Tobacco: Former Smoker
Alcohol: Daily (1 glass wine)
Drug: None
Personal:
Living: With Family
Family History
Family History: Not Pertinent
Review of Systems
Review of Systems
General: Change in Appetite; Negative Fever or Chills
HEENT: Negative Stiff Neck, Headache or Pharyngitis
Cardiovascular: Negative Chest Pain
Respiratory: Cough; Negative Sputum Production
Gasteroenterology: Diarrhea; Negative Nausea or Vomiting
Genital / Urological: Negative Dysuria or Flank Pain
Endocrine: Weakness and Fatigue
All systems: All other systems were reviewed and were negative
Vital Signs
Temp Pulse Resp BP Pulse Ox
98.5 F 82 16 108/72 97
01/10/25 11:31 01/10/25 11:31 01/10/25 11:31 01/10/25 11:31 01/10/25 11:31
Physical Exam
Physical Exam
Constitutional: Chronically Ill
Head: Other (No frontal or max or sinus tenderness)
Eyes: No Conjunctival Hemorrhage and Sclera Anicteric
Cardiovascular: Regular Rate and S1/S2
Pulmonary: Clear
Gastrointestinal: Soft, Non Tender, Non Distended and Normal Bowel Sounds
Genito-Urinary: Negative CVA Tenderness
Extremities: Negative Edema
Neurological: Negative AO x 3
Lab / Diagnostic Study Results
01/10/25 04:35
01/10/25 04:35
Abs Immat Gran (auto) 0.0 10^3/uL (0-0.05) 01/07/25 08:31
Absolute Neuts (auto) 4.5 10^3/uL (1.4-6.5) 01/07/25 08:31
Absolute Lymphs (auto) 0.7 10^3/uL (1.2-3.4) L 01/07/25 08:31
Absolute Monos (auto) 0.9 10^3/uL (0.1-0.6) H 01/07/25 08:31
Absolute Basos (auto) 0.0 10^3/uL (0-0.2) 01/07/25 08:31
Immature Gran % 0.6 % (0-0.5) H 01/07/25 08:31
Neutrophils % 72.2 % (42.2-75.2) 01/07/25 08:31
Lymphocytes % 10.8 % (20.5-51.1) L 01/07/25 08:31
Monocytes % 13.9 % (1.7-9.3) H 01/07/25 08:31
Eosinophils % 1.9 % (0-6) 01/07/25 08:31
Basophils % 0.6 % (0-2) 01/07/25 08:31
PT 17.0 Sec (11.4-14.6) H 01/05/25 13:58
INR 1.35 01/05/25 13:58
Ur Squamous Epith Cells 0-2 /LPF (Few) 01/04/25 13:38
Microbiology Results
Micro:
01/05/25 16:15 CSF Culture - Final
Csf No Growth After 5 Days - Final Report
Gram Stain - Final
01/04/25 13:17 Blood Culture - Final
Blood/Venous No Growth - Final Report
01/04/25 12:32 Blood Culture - Final
Blood/Venous No Growth - Final Report
01/05/25 16:15 Fungal Culture - Preliminary
Csf Culture in progress.
Positive cultures are reported as soon as detected.
Final report to follow in four to five weeks.
01/05/25 16:15 Acid Fast Bacilli Smear - Preliminary
Csf Acid Fast Bacilli Culture - Preliminary
01/05/25 16:15 Meningitis/Encephalitis Panel (PCR) - Final
Csf
01/03/25 16:00 Urine Culture - Final
Urine NO GROWTH
01/03/25 19:00 Influenza Types A & B (COLLETTE) - Final
Nasal Swab Influenza B Positive, NAAT
01/05/25 MRI brain: MRI findings are suspicious for a nonspecific encephalopathy with mild symmetric restricted diffusion and FLAIR hyperintense signal in the cortices of the bilateral frontal lobes, and to a lesser degree the bilateral
parieto-occipital lobes.
Assessment / Plan
# Encephalopathy
# Influenza B positive (01/03/25)
# h/o H+N ca s/p resection, completed Keytruda
# Lung mets s/p XRT (09/2024).
- CSF unremarkable 1 wbc, normal glucose protein.
- MRI brain: nonspecific signal in frontal lobes and parietal-occipital lobe.
- No benefit in oseltamivir at this point.
- To consider ?possible influenza encephalitis vs post-infectious ADEM.
- To consider trial of steroid.
Care Review
Plan reviewed with: Physician (Dr. Trinh)
--- NOTE | 2025-01-10 14:57 | W.PN.NEURO.1 ---
Today's Communication / Plan
-
Neurologic Examination:
The patient is alert and she knows her name and also she knows the name of her . She knows that she is in the hospital. She does not know the month of the year. She has antigravity strength bilaterally in the upper and lower extremities.
She is also able to follow verbal commands well. Her speech is dysarthric but can we used understood without much difficulty.
. 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
. MRI Brain done on 01/05/2025 showed mild symmetric restricted diffusion and FLAIR hyperintense signal in the cortices of the bilateral frontal lobes, and to a lesser degree the bilateral parieto-occipital lobes.
. LP performed 01/05 and CSF studies are negative for infection so far; neg paraneoplastic ab, Lyme and VDRL not detected.
. EEG was done on 01/06/2025 which was unremarkable.
The plan is to get infectious disease consult.
Discussed with Dr. Patsy Trinh.
I had a detailed discussion with the patient's regarding the assessment and the management plan and he verbalized understanding of our discussion.
Neuro Assessment/Plan
Assessment
Abrupt onset of change in mental status. This problem is been subacute beginning in September 2024 after radiation to the jaw for cancer treatment. The patient had progressed after that and began having confusion and hallucinations.
Differential diagnosis includes toxic metabolic encephalopathy, subacute stroke, medication overexposure including potentially due to lamotrigine. Following MRI of the brain, there is evidence of cortical ribbon enhancement which may be secondary
to encephalitis
Plan
Appreciate interventional radiology consult for lumbar puncture
Labs placed for checking CSF
Provide medications based on CSF findings
Continue to limit exposure to potentially sedating medications including oxycodone
Continue thiamine
Appreciate rehab evaluations
Check EEG
Await lamotrigine levels
Will follow
Subjective/Objective
Subjective Data
Date of Service: January 10, 2025
The patient was seen and examined today.
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 Rafael Bajwa at [facility], recently treated with
radiation for lung nodules), hypothyroidism anxiety), who is being worked up for encephalopathy. In the ED, the patient was found positive for influenza B with possible left lower lobe pneumonia.
Neurologic Examination:
The patient is alert and she knows her name and also she knows the name of her . She knows that she is in the hospital. She does not know the month of the year. She has antigravity strength bilaterally in the upper and lower extremities.
She is also able to follow verbal commands well. Her speech is dysarthric but can we used understood without much difficulty.
. 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
. MRI Brain done on 01/05/2025 showed mild symmetric restricted diffusion and FLAIR hyperintense signal in the cortices of the bilateral frontal lobes, and to a lesser degree the bilateral parieto-occipital lobes.
. LP performed 01/05 and CSF studies are negative for infection so far; neg paraneoplastic ab, Lyme and VDRL not detected.
. EEG was done on 01/06/2025 which was unremarkable.
Objective Data
Vital Signs
Temp Pulse Resp BP Pulse Ox
36.9 C 82 16 108/72 97
01/10/25 11:31 01/10/25 11:31 01/10/25 11:31 01/10/25 11:31 01/10/25 11:31
Lab Results
01/10/25 04:35
01/10/25 04:35
PT 17.0 Sec (11.4-14.6) H 01/05/25 13:58
INR 1.35 01/05/25 13:58
Sodium 137 mmol/L (135-145) 01/10/25 04:35
Potassium 3.7 mmol/L (3.5-5.1) 01/10/25 04:35
BUN 8 mg/dl (7-17) 01/10/25 04:35
Glucose 87 mg/dl (70-99) 01/10/25 04:35
Calcium 8.4 mg/dl (8.4-10.2) 01/10/25 04:35
Phosphorus 3.1 mg/dl (2.5-4.5) 01/06/25 03:46
Vitamin B12 Cancelled 01/04/25 16:08
Patient Allergies
No Known Allergies Allergy (Verified 11/04/15 10:49)
Vital Signs and Labs
-
Vital Signs and Labs:
Vital Signs
Temp Pulse Resp BP Pulse Ox
36.9 C 82 16 108/72 97
01/10/25 11:31 01/10/25 11:31 01/10/25 11:31 01/10/25 11:31 01/10/25 11:31
Lab Results
01/10/25 04:35
01/10/25 04:35
PT 17.0 Sec (11.4-14.6) H 01/05/25 13:58
INR 1.35 01/05/25 13:58
Sodium 137 mmol/L (135-145) 01/10/25 04:35
Potassium 3.7 mmol/L (3.5-5.1) 01/10/25 04:35
BUN 8 mg/dl (7-17) 01/10/25 04:35
Glucose 87 mg/dl (70-99) 01/10/25 04:35
Calcium 8.4 mg/dl (8.4-10.2) 01/10/25 04:35
Phosphorus 3.1 mg/dl (2.5-4.5) 01/06/25 03:46
Vitamin B12 Cancelled 01/04/25 16:08
Medications
-
Active Medications
Generic Name Dose Route Start Last Admin
Trade Name Freq PRN Reason Stop Dose Admin
Acetaminophen 650 mg 01/03/25 21:11
Acetaminophen 325 Mg Tablet PO 01/31/25 21:10
Q4HPRN PRN
mild pain/SUN/temp> 100.4F
Aspirin 81 mg 01/06/25 10:00 01/10/25 08:37
Aspirin 81 Mg (Enteric Coated) Tablet PO 02/03/25 09:59 81 mg
DAILY CAITLYN Administration
Atorvastatin Calcium 40 mg 01/08/25 18:00 01/09/25 18:32
Atorvastatin (Lipitor) 40 Mg Tablet PO 02/05/25 17:59 40 mg
QPM CAITLYN Administration
Bupropion HCl 300 mg 01/04/25 08:00 01/10/25 08:37
Bupropion (24hr) Extended Release 300 Mg Tablet PO 02/01/25 07:59 300 mg
DAILY CAITLYN Administration
Enoxaparin Sodium 40 mg 01/04/25 18:00 01/09/25 18:32
Enoxaparin Sodium 40 Mg/0.4 Ml Syringe SC 02/01/25 17:59 40 mg
QPM CAITLYN Administration
Heparin Sodium (Porcine) 500 unit 01/03/25 17:00 01/10/25 04:37
Heparin Flush Pf (100 Unit/Ml) 5 Ml Syringe IV 01/31/25 16:59 500 unit
PER PROTOCOL CAITLYN Administration
Lamotrigine 150 mg 01/04/25 08:00 01/10/25 08:37
Lamotrigine 100 Mg Tablet PO 02/01/25 07:59 150 mg
DAILY CAITLYN Administration
Levothyroxine Sodium 150 mcg 01/04/25 06:00 01/10/25 05:18
Levothyroxine 150 Mcg Tablet PO 02/01/25 05:59 150 mcg
DAILY @ 0600 CAITLYN Administration
Miconazole Nitrate 0 applic 01/04/25 20:00 01/10/25 08:41
Miconazole Powder Bottle TOPICAL 02/01/25 19:59 1 applic
BID CAITLYN Administration
Nystatin 4 ml 01/03/25 22:00 01/10/25 14:52
Nystatin Oral Suspension 500,000 Units/5 Ml PO 01/31/25 21:59 4 ml
QID CAITLYN Administration
Quetiapine Fumarate 25 mg 01/10/25 15:46
Quetiapine 25 Mg Tablet PO 02/07/25 15:45
Q6HPRN PRN
aggitation
Sodium Chloride 0 flush 01/03/25 22:00
Sodium Chloride 0.9% (Flush) Syringe IV 01/31/25 21:59
PER PROTOCOL CAITLYN
Sodium Chloride 0.5 ml 01/04/25 16:15
Nss (Pf) 10 Ml Vial For Ativan 1 Mg Dose IV
ONCE PRN PRN
IV LORAZEPAM DILUTION
Sterile Water 10 ml 01/04/25 18:00 01/09/25 18:05
Sterile Water For Injection 10 Ml Vial IV 02/01/25 17:59 Not Given
Q24H CAITLYN
Home Medications
�Medication �Instructions �Recorded
bupropion HCl 300 mg 24 hr tablet, 300 mg PO DAILY 08/24/14
extended release
lamotrigine 150 mg tablet 150 mg PO DAILY 11/04/15
levothyroxine 150 mcg tablet 150 mcg PO DAILY 01/03/25
lorazepam 1 mg tablet 1 mg PO Q4HPRN PRN anxiety 01/03/25
nystatin 100,000 unit/mL oral 4 ml PO QID 01/03/25
suspension
oxycodone 10 mg tablet 10 mg PO Q6HPRN PRN pain 01/03/25
[2025-01-10] MEDS: SEROQUEL 25 MG PO (16:17)
--- NOTE | 2025-01-10 16:21 | EEG.RPT ---
Electroencephalogram Report
Recording
Date of EE01/10/25
Type of EEG: Routine
Length of EEG recordin minutes
Done with Video Recording: Yes
Patient Status: Inpatient
Recording Conditions: Awake and Drowsy
Hyperventilation Performed: No
Photic Stimulation Performed: Yes
Report
LESS THAN 1 HOUR EEG INTERPRETATION:
Unremarkable EEG for age
CLINICAL CORRELATION:
A normal EEG does not rule out a diagnosis of epilepsy.
In comparison with her prior study of 01/06/2025, there was no change.
If clinical suspicion for seizure persists, a prolonged recording may be warranted.
Clinical correlation is advised.
METHODS:
21 channel digitized electroencephalogram (EEG) was performed using the 10/20 international system of electrode placement and one-lead of ECG monitoring. The [employer] quantitative EEG system was utilized.
ELECTROENCEPHALOGRAPHER IMPRESSION(S):
Quality of study
Fair due to muscle artifact
Background
There was an unremarkable anterior-posterior voltage gradient of alpha frequency.
With eye opening the background activity changed to a low voltage mixture of frequencies.
There were no significant asymmetries of background activity noted.
Sleep
Drowsiness present
Photic Stimulation
No activation
ECG
Normal sinus rhythm
--- NOTE | 2025-01-10 17:18 | W.PN.UPDATE ---
Update Note
Progress Note Update
Discussed plan with Dr Grajeda and Dr. Gutierrez - will trial high dose steroids for possible ADEM
Methylprednisolone 1000mg q 24 hours ordered
[2025-01-10] MEDS: LOVENOX 40 MG SC (17:24)
[2025-01-10] MEDS: LIPITOR 40 MG PO (17:24)
--- NOTE | 2025-01-10 17:29 | CON.MD ---
Consultation - Medical
-
patient seen chart reviewed. this consult done today january 10 3025. the patient is a 59 year old woman dx with ca of the floor of the mouth and tongue in 2016. she was rx with three surgical procedures chemotherapy and radiation. the first
revision of her initial surgery was necessitated by jaw fx. she went on to have lung mets as well. the patient 's son and were at the bedside. the patient was brought to for change in mental status of about two weeks duration.
and son both attest to mrs owens's quite good mental capacity until that time. son remember even one week ago a conversation with his mother about his kids and adds today she did not even realize she had grandchildren. she was not today
oriented to place or time. she was oriented to person. the patient has also been noted to be seeing things. says she saw people in the corner of the room earlier today but at the present time she is not seeing or hearing things. she does
have a hx of depression for several years and has been taking wellbutrin for about five years or more. she is also taking lamictal 150 mg daily says for depression which she never experienced until the ravages of cancer and cancer therapy.
there is some concern she may be experiencing sz and a decrease in wellbutrin has been suggested. says this was discussed even before recent admit to . patient's appetite has been decreased. she has been lethargic. cat scan head shows
several old infarctions. there is also evidence of encephalopathic changes seen on mri . lumbar puncture done results pending. chest xray suggests atelectasis and possible pneumonia.
medical hx see above hx tcp hypokalemia anemia massive mcv mch qtc 457 abn ecg hx hypothyroid hld impaired glucose metabolism electrolyte imbalance bp 115/72 folate 2.7
fh non contributory
substance abuse denied
social resides w has children grandchildren. lives locally.
mse patient was lying in bed in no obvious distress when i saw her. her speech was normal in rate but bc of surgeries contributing to dysarthria she was difficult to understand. she was not at the time i saw her hallucinating. she appeared sad and
anxious no hx si she appeared delicate and frail.
dx tme secondary to unknown medical etiology
recommendations agree with eeg which nursing told me had not been done and patient's h said had been done. . can decrease wellbutrin dose in half . would observe response and likely dc in a few days to a week. dr luis ordered seroquel 25 mg as
felt patient needed something to calm her. she had received it after i first visited with her. she did not seem particularly agitated when i saw here. when i returned to check on her an hour or so later she was asleep . would assess whether
the 25 mg could be reduced to 12.5. i did decrease the frequency. given the massive size of her red cells would suggest folate which is very low normal be repleted. psych will follow
[2025-01-10] MEDS: PROTONIX IV 40 MG IV (18:08)
[2025-01-10] MEDS: NSS (PRESERVATIVE FREE) 10 ML IV (18:09)
[2025-01-10] MEDS: SOLU-MEDROL 258 MG IV (18:10)
[2025-01-10] MEDS: STERILE WATER FOR INJECTION IV (18:10)
[2025-01-10] MEDS: FOLVITE 50.2 MG IV (22:24)
[2025-01-11] VITALS (8 sets, daily range): BP systolic 79–125; BP diastolic 49–78; PULSE 99–100; O2SAT 97–100
[2025-01-11] MEDS: SYNTHROID 150 MCG PO (05:04)
[2025-01-11 08:08] LABS: Blood Urea Nitrogen 7 mg/dl (7-17); Calcium 8.8 mg/dl (8.4-10.2); Carbon Dioxide 20 mmol/L (22-30); Chloride 107 mmol/L (98-107); Estimated Creatinine Clearance 92 ml/min; Glucose 137 mg/dl (70-99); Magnesium 1.6 mg/dl (1.6-2.3); Potassium 4.0 mmol/L (3.5-5.1); Sodium 137 mmol/L (135-145); eGFR > 60.00
--- NOTE | 2025-01-11 08:17 | W.PN.HOSP.TC ---
Today's Communication/Plan
-
continue high dose methylprednisolone
appreciate consultants
Assessment / Plan
Assessment / Plan
Ms. 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 Rafael Bajwa at [facility], recently treated with
radiation for lung nodules), hypothyroidism anxiety), and recent thrush (treated with nystatin swish and swallow) who presented for evaluation of encephalopathy. Her reports ongoing weakness for the past few weeks with a significant decline
since the Thursday prior to arrival (12/30/2024) when she was unable to ambulate on her own due to balance issues and began hallucinating. In the ED she was found to be positive for influenza B, with possible LLL pneumonia. Found to have old lacunar
infarct on MRI.
CXR 01/03/25
IMPRESSION:
Predominantly thickened linear opacity in the right midlung most likely representing subsegmental atelectasis.
Minimal patchy opacity in the left lung base which could represent subsegmental atelectasis, less likely pneumonia.
Right chest port with tip at the level of the cardiac right atrium.
HEAD CT
IMPRESSION:
1. No CT evidence for acute intracranial hemorrhage or transcortical infarct.
2. Mild diffuse cerebral and cerebellar volume loss.
3. Mild periventricular white matter leukoaraiosis.
4. 7.5 mm chronic white matter infarct in the right frontal lobe salazar radiata.
5. 5.6 mm chronic infarct in the right cerebellar hemisphere.
Brain MRI
IMPRESSION:
MRI findings are suspicious for a nonspecific encephalopathy with mild symmetric restricted diffusion and FLAIR hyperintense signal in the cortices of the bilateral frontal lobes, and to a lesser degree the bilateral parieto-occipital lobes.
Linear filling defect in the central lumen of the left sigmoid sinus. Differential considerations would include nonocclusive thrombus or flow related artifact.
TTE Saline Study
SUMMARY
1. Moderate LV systolic dysfunction. Global hypokinesis. The base of the heart contracts the best. Estimated LVEF 36%.
2. Negative agitated saline/bubble study for right to left shunt.
3. Aortic valve sclerosis without stenosis. Mild AR.
4. Mild to moderate mitral and tricuspid regurgitation.
5. No prior study available for comparison.
MRA 01/09
IMPRESSION:
1. CHRONIC OCCLUSION of the LEFT TRANSVERSE SINUS, SIGMOID SINUS, and INTERNAL JUGULAR VEIN.
2. 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
Influenza Encephalitis versus ADEM (although MRI not as indicative)
- MRI with nonspecific encephalitis with 'mild symmetric restricted diffusion and FLAIR hyperintense signal in cortices bilateral frontal lobes, lesser degree bilateral parietooccipital'
- Influenza B positive on admission
- LP 01/05 - CSF studies without elevated WBC, protein, neg paraneoplastic ab, Lyme and VDRL negative
- EEG 01/06 with unremarkable findings; repeat ordered on 01/10
- appreciate neurology and ID consult - after discussion we have started high dose steroids for potential treatment of ADEM (initiated on 01/10)
Hx Depression
-concern for subclinical seizures, appreciate Psychiatry and we are weaning down Wellbutrin
Possible Folate Deficiency
-contributing to presentation?
-F/U MMA and Homocysteine
-start repletion
Chronic lacunar infarct in the right cerebellum seen on MRI
-initiated on aspirin and high intensity statin, does not explain presentation
-s/p saline study above, no PFO
CAP
-s/p course of Ceftriaxone/Azithromycin
Dysphagia in setting of encephalopathy
-appreciate ST, modified diet ordered
Chronic Occlusion left transverse sinus, sigmoid sinus, IJ vein
-stable since 2015 (around time CA diagnosis)
-reviewed with neurosurgery, nothing to do given chronicity
Hypokalemia
-repleted
Acute urinary retention:
-s/p montes de oca, now removed
- Monitor for retention
Abnormal LFTs:
- Mild, resolved
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
- Status post surgery including mandibular resection, chemotherapy, and radiation
- Reportedly received radiation to the chest for lung nodules
- follows with Dr. Bajwa @ [facility] ([facility])
Thrush:
- Recently started on treatment by PCP, will continue
DVT prophylaxis: Lovenox
CODE STATUS: Full code
51 minutes spent on patient care
Anticipated Discharge: > 48 hours
Subjective/Interval History
-
Date of Service: January 11, 2025
remains confused
hoping to go home
Objective Data
-
Labs:
Laboratory Results
01/11/25
07:19
Sodium 137
Potassium 4.0
Chloride 107
Carbon Dioxide 20 L
BUN 7
Creatinine 0.5 L
Glucose 137 H
Calcium 8.8
Vital Signs:
Vital Signs
Temp Pulse Resp BP Pulse Ox
97.2 F 99 18 116/77 97
01/11/25 03:29 01/11/25 03:29 01/11/25 03:29 01/11/25 03:29 01/11/25 03:29
I&O
01/10/25 01/11/25 01/12/25
06:59 06:59 06:59
Intake Total 530 / 530 970 / 970
Output Total 375 / 375
Balance 530 / 530 595 / 595
Review of Systems
-
History Source: Patient
All other systems: Reviewed and negative
Physical Exam
-
General: Other (appears a bit restless, hoping to go home )
HEENT: Other (status post mandibular/neck surgery)
Respiratory: Clear to Auscultation; Negative Wheezes
Cardiac: Regular Rhythm and S1/S2
GI: Soft and Nontender
Musculoskeletal: No Edema
Skin: Warm and Dry; Negative Rash
Neuro: Awake and Alert
Psych: Confused (unable to state her age or her son's age, states she lives with her mother (who is ))
Data Reviewed
-
Diagnostic Radiology: Report Reviewed by me
Labs: Labs Reviewed by me
[2025-01-11] MEDS: FOLVITE 50.2 MG IV (08:23)
[2025-01-11] MEDS: MYCOSTATIN ORAL SUSPENSION 4 ML PO ×4 (08:24→21:23)
[2025-01-11] MEDS: WELLBUTRIN XL (24 hour extended release) 150 MG PO (08:24)
[2025-01-11] MEDS: LAMICTAL 150 MG PO (08:25)
[2025-01-11] MEDS: ASPIR LOW (ENTERIC COATED) 81 MG PO (08:25)
[2025-01-11] MEDS: PROTONIX IV 40 MG IV (08:29)
[2025-01-11] MEDS: NSS (PRESERVATIVE FREE) 10 ML IV (08:29)
[2025-01-11] MEDS: DESENEX/MITRAZOL/ZEASORB 1 APPLIC TOPICAL ×2 (08:39→20:31)
[2025-01-11] MEDS: MAGNESIUM SULFATE 50 IV (09:09)
[2025-01-11 09:24] LABS: Iron 42 ug/dl (37-170)
[2025-01-11 09:33] LABS: Total Iron Binding Capacity 204 ug/dl (265-497)
[2025-01-11] MEDS: VITAMIN B1 100 MG PO ×2 (09:48→20:31)
[2025-01-11 11:03] LABS: Ferritin 492.0 ng/ml (11.1-264.0)
[2025-01-11] MEDS: FOLVITE 5 MG PO (12:06)
--- NOTE | 2025-01-11 12:21 | W.PN.ID1 ---
Date of Service
Date of Service: January 11, 2025
Today's Communication
Continue steroid.
Assessment / Plan
# Encephalopathy
# Influenza B positive (01/03/25)
# h/o H+N ca s/p resection, completed Keytruda
# Lung mets s/p XRT (09/2024).
- CSF unremarkable 1 wbc, normal glucose protein.
- MRI brain: nonspecific signal in frontal lobes and parietal-occipital lobe.
- No benefit in oseltamivir at this point.
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
- Currently on steroid d2.
Chief Complaint
-: Other (Change in mental status)
Subjective / Review of Systems
Feel same.
Vital Signs / Physical Exam
Vital Signs
Vital Signs
Temp Pulse Resp BP Pulse Ox
97.8 F 99 16 105/59 97
01/11/25 11:10 01/11/25 11:10 01/11/25 11:10 01/11/25 11:10 01/11/25 11:10
Physical Exam
Constitutional: Acutely Ill
Eyes: Sclera Anicteric
Cardiovascular: Regular Rate and S1/S2
Pulmonary: Clear
Gastrointestinal: Soft, Non Tender, Non Distended and Normal Bowel Sounds
Genito-Urinary: Negative CVA Tenderness
Extremities: Negative Edema
Neurological: Awake, Alert and Oriented (to birthday); Negative AO x 3 or Meningeal Signs
Psychological: Confused and Other (restless)
Objective Data
Lab Data
Lab Results
01/10/25 04:35
01/11/25 07:19
PT 17.0 Sec (11.4-14.6) H 01/05/25 13:58
INR 1.35 01/05/25 13:58
Estimated Creat Clear 92 ml/min 01/11/25 07:19
Total Bilirubin 1.1 mg/dl (0.2-1.3) 01/08/25 04:40
AST 34 U/L (14-36) 01/08/25 04:40
ALT 24 U/L (0-35) 01/08/25 04:40
Alkaline Phosphatase 87 U/L (38-126) 01/08/25 04:40
Most recent labs reviewed.
Micro Results:
01/05/25 16:15 CSF Culture - Final
Csf No Growth After 5 Days - Final Report
Gram Stain - Final
01/04/25 13:17 Blood Culture - Final
Blood/Venous No Growth - Final Report
01/04/25 12:32 Blood Culture - Final
Blood/Venous No Growth - Final Report
01/05/25 16:15 Fungal Culture - Preliminary
Csf Culture in progress.
Positive cultures are reported as soon as detected.
Final report to follow in four to five weeks.
01/05/25 16:15 Acid Fast Bacilli Smear - Preliminary
Csf Acid Fast Bacilli Culture - Preliminary
01/05/25 16:15 Meningitis/Encephalitis Panel (PCR) - Final
Csf
01/03/25 16:00 Urine Culture - Final
Urine NO GROWTH
01/03/25 19:00 Influenza Types A & B (COLLETTE) - Final
Nasal Swab Influenza B Positive, NAAT
01/05/25 MRI brain: MRI findings are suspicious for a nonspecific encephalopathy with mild symmetric restricted diffusion and FLAIR hyperintense signal in the cortices of the bilateral frontal lobes, and to a lesser degree the bilateral
parieto-occipital lobes.
Care Review
Plan reviewed with: Physician (Dr. Trinh. )
--- NOTE | 2025-01-11 13:08 | CM ---
Patient seen at bedside with on . Patient requested address for SNF and CM reviewed it with him. Patient physician indicated that CM could start auth tomorrow.
[2025-01-11] MEDS: SOLU-MEDROL 258 MG IV (13:58)
--- NOTE | 2025-01-11 15:13 | W.PN.NEURO.1 ---
Today's Communication / Plan
-
The patient appears to be slightly more alert as compared to yesterday and is able to speak better than yesterday.
Neurologic Examination:
The patient is alert and she knows her name and also she knows the name of her . She knows that she is in the hospital. She does not know the month of the year. She has antigravity strength bilaterally in the upper and lower extremities.
She is also able to follow verbal commands well. Her speech is dysarthric but can we used understood without much difficulty.
. 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
. MRI Brain done on 01/05/2025 showed mild symmetric restricted diffusion and FLAIR hyperintense signal in the cortices of the bilateral frontal lobes, and to a lesser degree the bilateral parieto-occipital lobes.
. LP performed 01/05 and CSF studies are negative for infection so far; neg paraneoplastic ab, Lyme and VDRL not detected. In CSF there was 1 wbc, glucose 65 and protein 50.
. EEG was done on 01/06/2025 which was unremarkable.
. The ID consult has been obtained the impression is that need to consider ?possible influenza encephalitis versus postinfectious ADEM. A trial of steroids was recommended by ID.
. Plan to continue with IV methylprednisolone 1,000 mg every 24 hours for 5 days.
. Recommend Protonix 40 mg daily while on IV methyprednisolone.
Neuro Assessment/Plan
Assessment
Abrupt onset of change in mental status. This problem is been subacute beginning in September 2024 after radiation to the jaw for cancer treatment. The patient had progressed after that and began having confusion and hallucinations.
Differential diagnosis includes toxic metabolic encephalopathy, subacute stroke, medication overexposure including potentially due to lamotrigine. Following MRI of the brain, there is evidence of cortical ribbon enhancement which may be secondary
to encephalitis
Plan
Appreciate interventional radiology consult for lumbar puncture
Labs placed for checking CSF
Provide medications based on CSF findings
Continue to limit exposure to potentially sedating medications including oxycodone
Continue thiamine
Appreciate rehab evaluations
Check EEG
Await lamotrigine levels
Will follow
Subjective/Objective
Subjective Data
Date of Service: January 11, 2025
The patient appears to be a little more alert today as compared to yesterday and the thinks that she may be slightly better than yesterday.
Neurologic Examination:
The patient is alert and she knows her name and also she knows the name of her . She knows that she is in the hospital. She does not know the month of the year. She has antigravity strength bilaterally in the upper and lower extremities.
She is also able to follow verbal commands well. Her speech is dysarthric but can be understood without much difficulty.
. 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
. MRI Brain done on 01/05/2025 showed mild symmetric restricted diffusion and FLAIR hyperintense signal in the cortices of the bilateral frontal lobes, and to a lesser degree the bilateral parieto-occipital lobes.
. LP performed 01/05 and CSF studies are negative for infection so far; neg paraneoplastic ab, Lyme and VDRL not detected. In CSF there was 1 wbc, glucose 65 and protein 50.
. EEG was done on 01/06/2025 which was unremarkable.
. The ID consult has been obtained the impression is that need to consider ?possible influenza encephalitis versus postinfectious ADEM. A trial of steroids was recommended by ID.
. Plan to continue with IV methylprednisolone 1000 mg every 24 hours for 5 days.
Objective Data
Vital Signs
Temp Pulse Resp BP Pulse Ox
36.6 C 99 16 105/59 97
01/11/25 11:10 01/11/25 11:10 01/11/25 11:10 01/11/25 11:10 01/11/25 11:10
Lab Results
01/10/25 04:35
01/11/25 07:19
PT 17.0 Sec (11.4-14.6) H 01/05/25 13:58
INR 1.35 01/05/25 13:58
Sodium 137 mmol/L (135-145) 01/11/25 07:19
Potassium 4.0 mmol/L (3.5-5.1) 01/11/25 07:19
BUN 7 mg/dl (7-17) 01/11/25 07:19
Glucose 137 mg/dl (70-99) H 01/11/25 07:19
Calcium 8.8 mg/dl (8.4-10.2) 01/11/25 07:19
Phosphorus 3.6 mg/dl (2.5-4.5) 01/11/25 07:19
Vitamin B12 Cancelled 01/04/25 16:08
Patient Allergies
No Known Allergies Allergy (Verified 11/04/15 10:49)
Vital Signs and Labs
-
Vital Signs and Labs:
Vital Signs
Temp Pulse Resp BP Pulse Ox
36.6 C 99 16 105/59 97
01/11/25 11:10 01/11/25 11:10 01/11/25 11:10 01/11/25 11:10 01/11/25 11:10
Lab Results
01/10/25 04:35
01/11/25 07:19
PT 17.0 Sec (11.4-14.6) H 01/05/25 13:58
INR 1.35 01/05/25 13:58
Sodium 137 mmol/L (135-145) 01/11/25 07:19
Potassium 4.0 mmol/L (3.5-5.1) 01/11/25 07:19
BUN 7 mg/dl (7-17) 01/11/25 07:19
Glucose 137 mg/dl (70-99) H 01/11/25 07:19
Calcium 8.8 mg/dl (8.4-10.2) 01/11/25 07:19
Phosphorus 3.6 mg/dl (2.5-4.5) 01/11/25 07:19
Vitamin B12 Cancelled 01/04/25 16:08
Medications
-
Active Medications
Generic Name Dose Route Start Last Admin
Trade Name Freq PRN Reason Stop Dose Admin
Acetaminophen 650 mg 01/03/25 21:11
Acetaminophen 325 Mg Tablet PO 01/31/25 21:10
Q4HPRN PRN
mild pain/SUN/temp> 100.4F
Aspirin 81 mg 01/06/25 10:00 01/11/25 08:25
Aspirin 81 Mg (Enteric Coated) Tablet PO 02/03/25 09:59 81 mg
DAILY CAITLYN Administration
Atorvastatin Calcium 40 mg 01/08/25 18:00 01/10/25 17:24
Atorvastatin (Lipitor) 40 Mg Tablet PO 02/05/25 17:59 40 mg
QPM CAITLYN Administration
Bupropion HCl 150 mg 01/11/25 08:00 01/11/25 08:24
Bupropion (24hr) Extended Release 150 Mg Tablet PO 02/08/25 07:59 150 mg
DAILY CAITLYN Administration
Enoxaparin Sodium 40 mg 01/04/25 18:00 01/10/25 17:24
Enoxaparin Sodium 40 Mg/0.4 Ml Syringe SC 02/01/25 17:59 40 mg
QPM CAITLYN Administration
Folic Acid 5 mg 01/11/25 12:00 01/11/25 12:06
Folic Acid 1 Mg Tablet PO 02/08/25 11:59 5 mg
DAILY CAITLYN Administration
Heparin Sodium (Porcine) 500 unit 01/03/25 17:00 01/10/25 04:37
Heparin Flush Pf (100 Unit/Ml) 5 Ml Syringe IV 01/31/25 16:59 500 unit
PER PROTOCOL CAITLYN Administration
Methylprednisolone Sodium 258 mls @ 258 mls/hr 01/11/25 14:00 01/11/25 13:58
Succinate 1,000 mg/ Sodium IV 01/14/25 14:59 258 mls
Chloride Q24H CAITLYN Administration
Lamotrigine 150 mg 01/04/25 08:00 01/11/25 08:25
Lamotrigine 100 Mg Tablet PO 02/01/25 07:59 150 mg
DAILY CAITLYN Administration
Levothyroxine Sodium 150 mcg 01/04/25 06:00 01/11/25 05:04
Levothyroxine 150 Mcg Tablet PO 02/01/25 05:59 150 mcg
DAILY @ 0600 CAITLYN Administration
Miconazole Nitrate 0 applic 01/04/25 20:00 01/11/25 08:39
Miconazole Powder Bottle TOPICAL 02/01/25 19:59 1 applic
BID CAITLYN Administration
Nystatin 4 ml 01/03/25 22:00 01/11/25 12:08
Nystatin Oral Suspension 500,000 Units/5 Ml PO 01/31/25 21:59 4 ml
QID CAITLYN Administration
Pantoprazole Sodium 40 mg 01/10/25 18:00 01/11/25 08:29
Pantoprazole Sodium 40 Mg/10 Ml Vial IV 02/07/25 17:59 40 mg
DAILY CAITLYN Administration
Quetiapine Fumarate 12.5 mg 01/11/25 07:03
Quetiapine 25 Mg Tablet PO 02/07/25 22:59
Q8HPRN PRN
agitation
Quetiapine Fumarate 25 mg 01/11/25 22:00
Quetiapine 25 Mg Tablet PO 02/08/25 21:59
HS CAITLYN
Sodium Chloride 0 flush 01/03/25 22:00
Sodium Chloride 0.9% (Flush) Syringe IV 01/31/25 21:59
PER PROTOCOL CAITLYN
Sodium Chloride 0.5 ml 01/04/25 16:15
Nss (Pf) 10 Ml Vial For Ativan 1 Mg Dose IV
ONCE PRN PRN
IV LORAZEPAM DILUTION
Sodium Chloride 10 ml 01/10/25 18:00 01/11/25 08:29
Sodium Chloride 0.9% (Preservative Free) 10 Ml Vial IV 02/07/25 17:59 10 ml
DAILY CAITLYN Administration
Sterile Water 10 ml 01/04/25 18:00 01/10/25 18:10
Sterile Water For Injection 10 Ml Vial IV 02/01/25 17:59 Not Given
Q24H CAITLYN
Thiamine HCl 100 mg 01/11/25 09:00 01/11/25 09:48
Thiamine 100 Mg Tablet PO 02/08/25 08:59 100 mg
BID CAITLYN Administration
Home Medications
�Medication �Instructions �Recorded
bupropion HCl 300 mg 24 hr tablet, 300 mg PO DAILY 08/24/14
extended release
lamotrigine 150 mg tablet 150 mg PO DAILY 11/04/15
levothyroxine 150 mcg tablet 150 mcg PO DAILY 01/03/25
lorazepam 1 mg tablet 1 mg PO Q4HPRN PRN anxiety 01/03/25
nystatin 100,000 unit/mL oral 4 ml PO QID 01/03/25
suspension
oxycodone 10 mg tablet 10 mg PO Q6HPRN PRN pain 01/03/25
[2025-01-11] MEDS: SEROQUEL 12.5 MG PO (16:14)
[2025-01-11] MEDS: LOVENOX 40 MG SC (19:11)
[2025-01-11] MEDS: LIPITOR 40 MG PO (19:11)
[2025-01-11] MEDS: STERILE WATER FOR INJECTION IV (19:12)
[2025-01-11] MEDS: SEROQUEL 25 MG PO (21:23)
--- NOTE | 2025-01-11 22:39 | W.PN.UPDATE ---
Update Note
Progress Note Update
pt seen this afternoon for followup assessment at bedside. Pt initially sleeping, when awakened she began talking about being at the [place] [address]. with some urging able to reorient to being in the hospital. Knows it is 2024, but
guesses June. Informed it was December, near --when asked same question at end of interview did not know month or holiday. notes great variability in her degree of confusion; earlier in day confused grandson for her brother. pt
denies depression, says she has a great and kids. Has had bupropion reduced, will plan to take away completely this week. will monitor
--- NOTE | 2025-01-12 04:20 | W.PN.UPDATE ---
Update Note
Progress Note Update
BP 83/58 HR 90 97% RA HR 16. Patient is sleeping. arousable. Will order bolus 500 CC.
[2025-01-12] MEDS: NSS 250 IV (04:40)
[2025-01-12] MEDS: SYNTHROID 150 MCG PO (06:32)
[2025-01-12 06:39] VITALS: BP 94/52
[2025-01-12 06:40] LABS: Hematocrit 30.1 % (37.0-47.0); Hemoglobin 10.0 g/dL (12.0-16.0); Mean Corp Hgb Conc. 33.2 g/dL (33.0-37.0); Mean Corpuscular Volume 123.9 fL (81.0-99.0); Nucleated Red Blood Cells % 0 %; Platelet Count 195 10^3/uL (130-400); Red Cell Dist. Width 13.9 % (11.5-14.5)
[2025-01-12 07:15] VITALS: BP 105/62
[2025-01-12 07:20] LABS: ALT (SGPT) 24 U/L (0-35); AST (SGOT) 39 U/L (14-36); Albumin 3.0 g/dl (3.5-5.0); Alkaline Phosphatase 83 U/L (38-126); Blood Urea Nitrogen 10 mg/dl (7-17); Calcium 8.9 mg/dl (8.4-10.2); Carbon Dioxide 22 mmol/L (22-30); Chloride 109 mmol/L (98-107); Estimated Creatinine Clearance 92 ml/min; Glucose 119 mg/dl (70-99); Magnesium 1.9 mg/dl (1.6-2.3); Potassium 3.6 mmol/L (3.5-5.1); Sodium 136 mmol/L (135-145); Total Protein 5.5 g/dl (6.3-8.2); eGFR > 60.00
--- NOTE | 2025-01-12 07:27 | W.PN.HOSP.TC ---
Today's Communication/Plan
-
Day 3/5 High dose methylprednisolone
continue high dose folate repletion
follow up further specialist recommendations
Assessment / Plan
Assessment / Plan
Ms. 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 Rafael Bajwa at [facility], recently treated with
radiation for lung nodules), hypothyroidism anxiety), and recent thrush (treated with nystatin swish and swallow) who presented for evaluation of encephalopathy. Her reports ongoing weakness for the past few weeks with a significant decline
since the Thursday prior to arrival (12/30/2024) when she was unable to ambulate on her own due to balance issues and began hallucinating. In the ED she was found to be positive for influenza B, with possible LLL pneumonia. Found to have old lacunar
infarct on MRI.
CXR 01/03/25
IMPRESSION:
Predominantly thickened linear opacity in the right midlung most likely representing subsegmental atelectasis.
Minimal patchy opacity in the left lung base which could represent subsegmental atelectasis, less likely pneumonia.
Right chest port with tip at the level of the cardiac right atrium.
HEAD CT
IMPRESSION:
1. No CT evidence for acute intracranial hemorrhage or transcortical infarct.
2. Mild diffuse cerebral and cerebellar volume loss.
3. Mild periventricular white matter leukoaraiosis.
4. 7.5 mm chronic white matter infarct in the right frontal lobe salazar radiata.
5. 5.6 mm chronic infarct in the right cerebellar hemisphere.
Brain MRI
IMPRESSION:
MRI findings are suspicious for a nonspecific encephalopathy with mild symmetric restricted diffusion and FLAIR hyperintense signal in the cortices of the bilateral frontal lobes, and to a lesser degree the bilateral parieto-occipital lobes.
Linear filling defect in the central lumen of the left sigmoid sinus. Differential considerations would include nonocclusive thrombus or flow related artifact.
TTE Saline Study
SUMMARY
1. Moderate LV systolic dysfunction. Global hypokinesis. The base of the heart contracts the best. Estimated LVEF 36%.
2. Negative agitated saline/bubble study for right to left shunt.
3. Aortic valve sclerosis without stenosis. Mild AR.
4. Mild to moderate mitral and tricuspid regurgitation.
5. No prior study available for comparison.
MRA 01/09
IMPRESSION:
1. CHRONIC OCCLUSION of the LEFT TRANSVERSE SINUS, SIGMOID SINUS, and INTERNAL JUGULAR VEIN.
2. 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
Influenza Encephalitis versus ADEM (although MRI not as indicative)
- MRI with nonspecific encephalitis with 'mild symmetric restricted diffusion and FLAIR hyperintense signal in cortices bilateral frontal lobes, lesser degree bilateral parietooccipital'
- Influenza B positive on admission
- LP 01/05 - CSF studies without elevated WBC, protein, neg paraneoplastic ab, Lyme and VDRL negative
- EEG 01/06 with unremarkable findings; repeat ordered on 01/10
- appreciate neurology and ID consult - after discussion we have started high dose steroids for potential treatment of ADEM (initiated on 01/10). Day 3
Hx Depression
-concern for subclinical seizures, appreciate Psychiatry and we are weaning down Wellbutrin
Possible Folate Deficiency
Macrocytosis on CBC
-contributing to presentation?
-F/U MMA and Homocysteine
-start repletion 5mg PO QD
Chronic lacunar infarct in the right cerebellum seen on MRI
-initiated on aspirin and high intensity statin, does not explain presentation
-s/p saline study above, no PFO
CAP
-s/p course of Ceftriaxone/Azithromycin
Dysphagia in setting of encephalopathy
-appreciate ST, modified diet ordered
Chronic Occlusion left transverse sinus, sigmoid sinus, IJ vein
-stable since 2015 (around time CA diagnosis)
-reviewed with neurosurgery, nothing to do given chronicity
Hypokalemia
-repleted
Acute urinary retention:
-s/p montes de oca, now removed
- Monitor for retention
Abnormal LFTs:
- Mild, resolved
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
- Status post surgery including mandibular resection, chemotherapy, and radiation
- Reportedly received radiation to the chest for lung nodules
- follows with Dr. Bajwa @ [facility] ([facility])
Thrush:
- Recently started on treatment by PCP, will continue
DVT prophylaxis: Lovenox
CODE STATUS: Full code
51 minutes spent on patient care
Anticipated Discharge: > 48 hours
Subjective/Interval History
-
Date of Service: January 12, 2025
she continues to talk about going home and leaving
She is able to tell me that her son is named Williams and is 30; but states she lives at home with her mother (who has )
she is sad about being in the hospital
Objective Data
-
Labs:
Laboratory Results
01/12/25
05:40
WBC 4.8
Hgb 10.0 L
Hct 30.1 L
Plt Count 195 D
Sodium 136
Potassium 3.6
Chloride 109 H
Carbon Dioxide 22
BUN 10
Creatinine 0.5 L
Glucose 119 H
Calcium 8.9
Total Bilirubin 0.7
AST 39 H
ALT 24
Alkaline Phosphatase 83
Vital Signs:
Vital Signs
Temp Pulse Resp BP Pulse Ox
97.3 F 98 16 94/52 90
01/11/25 23:54 01/11/25 23:54 01/11/25 23:54 01/12/25 06:39 01/11/25 23:56
I&O
01/11/25 01/12/25 01/13/25
06:59 06:59 06:59
Intake Total 970 / 970 1289 / 1289
Output Total 375 / 375 300 / 300
Balance 595 / 595 989 / 989
Review of Systems
-
History Source: Patient
All other systems: Reviewed and negative
Physical Exam
-
General: Other (appears a bit restless, hoping to go home )
HEENT: Other (status post mandibular/neck surgery)
Respiratory: Clear to Auscultation; Negative Wheezes
Cardiac: Regular Rhythm and S1/S2
GI: Soft and Nontender
Musculoskeletal: No Edema
Skin: Warm and Dry; Negative Rash
Neuro: Awake and Alert
Psych: Confused
Data Reviewed
-
Diagnostic Radiology: Report Reviewed by me
Labs: Labs Reviewed by me
[2025-01-12] MEDS: FOLVITE 5 MG PO (09:10)
[2025-01-12] MEDS: WELLBUTRIN XL (24 hour extended release) 150 MG PO (09:11)
[2025-01-12] MEDS: LAMICTAL 150 MG PO (09:11)
[2025-01-12] MEDS: MYCOSTATIN ORAL SUSPENSION 4 ML PO ×4 (09:12→21:36)
[2025-01-12] MEDS: NSS (PRESERVATIVE FREE) 10 ML IV (09:12)
[2025-01-12] MEDS: PROTONIX IV 40 MG IV (09:12)
[2025-01-12] MEDS: VITAMIN B1 100 MG PO ×2 (09:13→19:20)
[2025-01-12] MEDS: ASPIR LOW (ENTERIC COATED) 81 MG PO (09:13)
--- NOTE | 2025-01-12 09:21 | W.PN.ID1 ---
Date of Service
Date of Service: January 12, 2025
Today's Communication
Continue current management.
Assessment / Plan
# Encephalopathy - ?some improvement
# Influenza B positive (01/03/25)
# h/o H+N ca s/p resection, completed Keytruda
# Lung mets s/p XRT (09/2024).
-Possible folate deficiency vs influenza post-infectious ADEM
- CSF unremarkable 1 wbc, normal glucose protein.
- MRI brain: nonspecific signal in frontal lobes and parietal-occipital lobe.
- No benefit in oseltamivir at this point.
- Currently on folate supplement and empiric steroid d3.
Chief Complaint
-: Other (Change in mental status)
Subjective / Review of Systems
Reports feeling somewhat better.
Appetite improved.
Vital Signs / Physical Exam
Vital Signs
Vital Signs
Temp Pulse Resp BP Pulse Ox
98.2 F 68 16 105/62 96
01/12/25 07:15 01/12/25 07:15 01/12/25 07:15 01/12/25 07:15 01/12/25 07:15
Physical Exam
Constitutional: No Acute Distress
Eyes: Sclera Anicteric
Cardiovascular: Regular Rate and S1/S2
Pulmonary: Clear
Gastrointestinal: Soft, Non Tender, Non Distended and Normal Bowel Sounds
Genito-Urinary: Negative CVA Tenderness
Extremities: Negative Edema
Neurological: Awake, Alert and Oriented (oriented to birthday, season, holidays, hospital. Not oriented to year, president. ); Negative Meningeal Signs
Psychological: Calm
Objective Data
Lab Data
Lab Results
01/12/25 05:40
01/12/25 05:40
PT 17.0 Sec (11.4-14.6) H 01/05/25 13:58
INR 1.35 01/05/25 13:58
Estimated Creat Clear 92 ml/min 01/12/25 05:40
Total Bilirubin 0.7 mg/dl (0.2-1.3) 01/12/25 05:40
AST 39 U/L (14-36) H 01/12/25 05:40
ALT 24 U/L (0-35) 01/12/25 05:40
Alkaline Phosphatase 83 U/L (38-126) 01/12/25 05:40
Most recent labs reviewed.
Micro Results:
01/05/25 16:15 CSF Culture - Final
Csf No Growth After 5 Days - Final Report
Gram Stain - Final
01/04/25 13:17 Blood Culture - Final
Blood/Venous No Growth - Final Report
01/04/25 12:32 Blood Culture - Final
Blood/Venous No Growth - Final Report
01/05/25 16:15 Fungal Culture - Preliminary
Csf Culture in progress.
Positive cultures are reported as soon as detected.
Final report to follow in four to five weeks.
01/05/25 16:15 Acid Fast Bacilli Smear - Preliminary
Csf Acid Fast Bacilli Culture - Preliminary
01/05/25 16:15 Meningitis/Encephalitis Panel (PCR) - Final
Csf
01/03/25 16:00 Urine Culture - Final
Urine NO GROWTH
01/03/25 19:00 Influenza Types A & B (COLLETTE) - Final
Nasal Swab Influenza B Positive, NAAT
01/05/25 MRI brain: MRI findings are suspicious for a nonspecific encephalopathy with mild symmetric restricted diffusion and FLAIR hyperintense signal in the cortices of the bilateral frontal lobes, and to a lesser degree the bilateral
parieto-occipital lobes.
Care Review
Plan reviewed with: Physician (Dr. Trinh)
[2025-01-12] MEDS: SOLU-MEDROL 258 MG IV (09:39)
[2025-01-12] MEDS: DESENEX/MITRAZOL/ZEASORB 1 APPLIC TOPICAL ×2 (09:40→19:20)
--- NOTE | 2025-01-12 10:39 | W.PN.UPDATE ---
Update Note
Progress Note Update
patient seen chart reviewed. at bedside. spoke to nursing. earlier today according to sindy patient was oriented to person and place but when i saw her she told me she was at [facility]. not oriented to time. she was however pleasant and did
not appear in distress. i had difficult understanding her speech much of the time as did her . feels her sensorium is variable. he notes that steroids seem to cause some irritability. continuing to decrease the wellbutrin today to
100 mg sr. note seroquel 25 mg q hs added. will cut back to 12.5 mg this could be contributing to cognitive issues. there is a prn for 12.5 mg as well. will check in w her in am.
[2025-01-12 15:40] VITALS: BP 116/72
--- NOTE | 2025-01-12 16:01 | CM ---
auth [id number] 01/13/25-01/17/25. from [facility] administration 01/13/25-01/17/25 to [facility]. auth for ambulance is #[id number] 01/13-01/14 CM will update physician and facility. CM will continue to follow for discharge planning
needs.
Plan; for transfer to SNF; [place] when medically appropriate
--- NOTE | 2025-01-12 16:10 | W.PN.NEURO.1 ---
Addendum entered and electronically signed by Lalo Grajeda MD 01/13/25 16:52:
It was day #3 of IV methylprednisolone on 01/12/2025.
Original Note:
Today's Communication / Plan
-
The patient appears to be much more alert today as compared to yesterday and is able to speak better than yesterday. Her speech is better, she appears to be stronger and she is more oriented today than yesterday. The patient's agrees that
the patient is better today. Today is day #2 of IV methylprednisolone.
. LP performed 01/05 and CSF studies are negative for infection so far; neg paraneoplastic ab, Lyme and VDRL not detected. In CSF there was 1 wbc, glucose 65 and protein 50.
. EEG was done on 01/06/2025 which was unremarkable.
. The ID consult has been obtained the impression is that need to consider ?possible influenza encephalitis versus postinfectious ADEM. A trial of steroids was recommended by ID.
. Plan to continue with IV methylprednisolone 1,000 mg every 24 hours for 5 days.
. Recommend Protonix 40 mg daily while on IV methyprednisolone.
Neuro Assessment/Plan
Assessment
Abrupt onset of change in mental status. This problem is been subacute beginning in September 2024 after radiation to the jaw for cancer treatment. The patient had progressed after that and began having confusion and hallucinations.
Differential diagnosis includes toxic metabolic encephalopathy, subacute stroke, medication overexposure including potentially due to lamotrigine. Following MRI of the brain, there is evidence of cortical ribbon enhancement which may be secondary
to encephalitis
Plan
Appreciate interventional radiology consult for lumbar puncture
Labs placed for checking CSF
Provide medications based on CSF findings
Continue to limit exposure to potentially sedating medications including oxycodone
Continue thiamine
Appreciate rehab evaluations
Check EEG
Await lamotrigine levels
Will follow
Subjective/Objective
Subjective Data
Date of Service: January 12, 2025
The patient appears to be much more alert today as compared to yesterday and is able to speak better than yesterday. Her speech is better, she appears to be stronger and she is more oriented today than yesterday. The patient's agrees that
the patient is better today. Today is day #2 of IV methylprednisolone.
Neurologic Examination:
The patient is alert and she knows her name and also she knows the name of her . She knows that she is in the hospital. She has antigravity strength bilaterally in the upper and lower extremities. She is also able to follow verbal commands
well. Her speech is dysarthric but can we used understood without much difficulty.
. 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
. MRI Brain done on 01/05/2025 showed mild symmetric restricted diffusion and FLAIR hyperintense signal in the cortices of the bilateral frontal lobes, and to a lesser degree the bilateral parieto-occipital lobes.
. Influenza B positive (01/03/25)
. LP performed 01/05 and CSF studies are negative for infection so far; neg paraneoplastic ab, Lyme and VDRL not detected. In CSF there was 1 wbc, glucose 65 and protein 50.
. EEG was done on 01/06/2025 which was unremarkable.
. The ID consult has been obtained the impression is that need to consider ?possible influenza encephalitis versus postinfectious ADEM. A trial of steroids was recommended by ID.
. Plan to continue with IV methylprednisolone 1,000 mg every 24 hours for 5 days.
. Recommend Protonix 40 mg daily while on IV methyprednisolone.
Objective Data
Vital Signs
Temp Pulse Resp BP Pulse Ox
36.8 C 68 16 105/62 96
01/12/25 07:15 01/12/25 07:15 01/12/25 07:15 01/12/25 07:15 01/12/25 07:15
Lab Results
01/12/25 05:40
01/12/25 05:40
PT 17.0 Sec (11.4-14.6) H 01/05/25 13:58
INR 1.35 01/05/25 13:58
Sodium 136 mmol/L (135-145) 01/12/25 05:40
Potassium 3.6 mmol/L (3.5-5.1) 01/12/25 05:40
BUN 10 mg/dl (7-17) 01/12/25 05:40
Glucose 119 mg/dl (70-99) H 01/12/25 05:40
Calcium 8.9 mg/dl (8.4-10.2) 01/12/25 05:40
Phosphorus 3.6 mg/dl (2.5-4.5) 01/11/25 07:19
Vitamin B12 Cancelled 01/04/25 16:08
Patient Allergies
No Known Allergies Allergy (Verified 11/04/15 10:49)
Vital Signs and Labs
-
Vital Signs and Labs:
Vital Signs
Temp Pulse Resp BP Pulse Ox
36.8 C 68 16 105/62 96
01/12/25 07:15 01/12/25 07:15 01/12/25 07:15 01/12/25 07:15 01/12/25 07:15
Lab Results
01/12/25 05:40
01/12/25 05:40
PT 17.0 Sec (11.4-14.6) H 01/05/25 13:58
INR 1.35 01/05/25 13:58
Sodium 136 mmol/L (135-145) 01/12/25 05:40
Potassium 3.6 mmol/L (3.5-5.1) 01/12/25 05:40
BUN 10 mg/dl (7-17) 01/12/25 05:40
Glucose 119 mg/dl (70-99) H 01/12/25 05:40
Calcium 8.9 mg/dl (8.4-10.2) 01/12/25 05:40
Phosphorus 3.6 mg/dl (2.5-4.5) 01/11/25 07:19
Vitamin B12 Cancelled 01/04/25 16:08
Medications
-
Active Medications
Generic Name Dose Route Start Last Admin
Trade Name Freq PRN Reason Stop Dose Admin
Acetaminophen 650 mg 01/03/25 21:11
Acetaminophen 325 Mg Tablet PO 01/31/25 21:10
Q4HPRN PRN
mild pain/SUN/temp> 100.4F
Aspirin 81 mg 01/06/25 10:00 01/12/25 09:13
Aspirin 81 Mg (Enteric Coated) Tablet PO 02/03/25 09:59 81 mg
DAILY CAITLYN Administration
Atorvastatin Calcium 40 mg 01/08/25 18:00 01/11/25 19:11
Atorvastatin (Lipitor) 40 Mg Tablet PO 02/05/25 17:59 40 mg
QPM CAITLYN Administration
Bupropion HCl 100 mg 01/13/25 08:00
Bupropion (12hr) Sustained Release 100 Mg Tablet PO 02/10/25 07:59
DAILY CAITLYN
Enoxaparin Sodium 40 mg 01/04/25 18:00 01/11/25 19:11
Enoxaparin Sodium 40 Mg/0.4 Ml Syringe SC 02/01/25 17:59 40 mg
QPM CAITLYN Administration
Folic Acid 5 mg 01/11/25 12:00 01/12/25 09:10
Folic Acid 1 Mg Tablet PO 02/08/25 11:59 5 mg
DAILY CAITLYN Administration
Heparin Sodium (Porcine) 500 unit 01/03/25 17:00 01/10/25 04:37
Heparin Flush Pf (100 Unit/Ml) 5 Ml Syringe IV 01/31/25 16:59 500 unit
PER PROTOCOL CAITLYN Administration
Methylprednisolone Sodium 258 mls @ 258 mls/hr 01/12/25 10:00 01/12/25 09:39
Succinate 1,000 mg/ Sodium IV 01/14/25 10:59 258 mls
Chloride Q24H CAITLYN Administration
Lamotrigine 150 mg 01/04/25 08:00 01/12/25 09:11
Lamotrigine 100 Mg Tablet PO 02/01/25 07:59 150 mg
DAILY CAITLYN Administration
Levothyroxine Sodium 150 mcg 01/04/25 06:00 01/12/25 06:32
Levothyroxine 150 Mcg Tablet PO 02/01/25 05:59 150 mcg
DAILY @ 0600 CAITLYN Administration
Miconazole Nitrate 0 applic 01/04/25 20:00 01/12/25 09:40
Miconazole Powder Bottle TOPICAL 02/01/25 19:59 1 applic
BID CAITLYN Administration
Nystatin 4 ml 01/03/25 22:00 01/12/25 13:40
Nystatin Oral Suspension 500,000 Units/5 Ml PO 01/13/25 21:59 4 ml
QID CAITLYN Administration
Pantoprazole Sodium 40 mg 01/10/25 18:00 01/12/25 09:12
Pantoprazole Sodium 40 Mg/10 Ml Vial IV 02/07/25 17:59 40 mg
DAILY CAITLYN Administration
Quetiapine Fumarate 12.5 mg 01/11/25 07:03 01/11/25 16:14
Quetiapine 25 Mg Tablet PO 02/07/25 22:59 12.5 mg
Q8HPRN PRN Administration
agitation
Quetiapine Fumarate 12.5 mg 01/12/25 10:43
Quetiapine 25 Mg Tablet PO 02/08/25 21:59
HS CAITLYN
Sodium Chloride 0 flush 01/03/25 22:00
Sodium Chloride 0.9% (Flush) Syringe IV 01/31/25 21:59
PER PROTOCOL CAITLYN
Sodium Chloride 0.5 ml 01/04/25 16:15
Nss (Pf) 10 Ml Vial For Ativan 1 Mg Dose IV
ONCE PRN PRN
IV LORAZEPAM DILUTION
Sodium Chloride 10 ml 01/10/25 18:00 01/12/25 09:12
Sodium Chloride 0.9% (Preservative Free) 10 Ml Vial IV 02/07/25 17:59 10 ml
DAILY CAITLYN Administration
Sterile Water 10 ml 01/04/25 18:00 01/11/25 19:12
Sterile Water For Injection 10 Ml Vial IV 02/01/25 17:59 Not Given
Q24H CAITLYN
Thiamine HCl 100 mg 01/11/25 09:00 01/12/25 09:13
Thiamine 100 Mg Tablet PO 02/08/25 08:59 100 mg
BID CAITLYN Administration
Home Medications
�Medication �Instructions �Recorded
bupropion HCl 300 mg 24 hr tablet, 300 mg PO DAILY 08/24/14
extended release
lamotrigine 150 mg tablet 150 mg PO DAILY 11/04/15
levothyroxine 150 mcg tablet 150 mcg PO DAILY 01/03/25
lorazepam 1 mg tablet 1 mg PO Q4HPRN PRN anxiety 01/03/25
nystatin 100,000 unit/mL oral 4 ml PO QID 01/03/25
suspension
oxycodone 10 mg tablet 10 mg PO Q6HPRN PRN pain 01/03/25
[2025-01-12] MEDS: LOVENOX 40 MG SC (17:14)
[2025-01-12] MEDS: LIPITOR 40 MG PO (17:14)
[2025-01-12] MEDS: STERILE WATER FOR INJECTION IV (17:16)
[2025-01-12] MEDS: SEROQUEL 12.5 MG PO (21:36)
[2025-01-12 23:29] VITALS: BP 124/81
[2025-01-13] MEDS: SYNTHROID 150 MCG PO (05:59)
[2025-01-13 07:21] VITALS: BP 122/80
[2025-01-13 08:53] LABS: Glucose - Point of Care 94 mg/dl (70-99)
[2025-01-13] MEDS: MYCOSTATIN ORAL SUSPENSION 4 ML PO ×3 (09:15→16:23)
[2025-01-13] MEDS: ASPIR LOW (ENTERIC COATED) 81 MG PO (09:15)
[2025-01-13] MEDS: VITAMIN B1 100 MG PO ×2 (09:15→20:52)
[2025-01-13] MEDS: WELLBUTRIN SR (12 hour sustained release) 100 MG PO (09:16)
[2025-01-13] MEDS: FOLVITE 5 MG PO (09:16)
[2025-01-13] MEDS: LAMICTAL 150 MG PO (09:17)
[2025-01-13] MEDS: NSS (PRESERVATIVE FREE) 10 ML IV (09:19)
[2025-01-13] MEDS: PROTONIX IV 40 MG IV (09:19)
--- NOTE | 2025-01-13 09:21 | W.PN.HOSP.TC ---
Today's Communication/Plan
-
day 4/5 high dose steroids
remains confused this morning although had periods of improvement yesterday
Assessment / Plan
Assessment / Plan
Ms. 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 Rafael Bajwa at [facility], recently treated with
radiation for lung nodules), hypothyroidism anxiety), and recent thrush (treated with nystatin swish and swallow) who presented for evaluation of encephalopathy. Her reports ongoing weakness for the past few weeks with a significant decline
since the Thursday prior to arrival (12/30/2024) when she was unable to ambulate on her own due to balance issues and began hallucinating. In the ED she was found to be positive for influenza B, with possible LLL pneumonia. Found to have old lacunar
infarct on MRI.
CXR 01/03/25
IMPRESSION:
Predominantly thickened linear opacity in the right midlung most likely representing subsegmental atelectasis.
Minimal patchy opacity in the left lung base which could represent subsegmental atelectasis, less likely pneumonia.
Right chest port with tip at the level of the cardiac right atrium.
HEAD CT
IMPRESSION:
1. No CT evidence for acute intracranial hemorrhage or transcortical infarct.
2. Mild diffuse cerebral and cerebellar volume loss.
3. Mild periventricular white matter leukoaraiosis.
4. 7.5 mm chronic white matter infarct in the right frontal lobe salazar radiata.
5. 5.6 mm chronic infarct in the right cerebellar hemisphere.
Brain MRI
IMPRESSION:
MRI findings are suspicious for a nonspecific encephalopathy with mild symmetric restricted diffusion and FLAIR hyperintense signal in the cortices of the bilateral frontal lobes, and to a lesser degree the bilateral parieto-occipital lobes.
Linear filling defect in the central lumen of the left sigmoid sinus. Differential considerations would include nonocclusive thrombus or flow related artifact.
TTE Saline Study
SUMMARY
1. Moderate LV systolic dysfunction. Global hypokinesis. The base of the heart contracts the best. Estimated LVEF 36%.
2. Negative agitated saline/bubble study for right to left shunt.
3. Aortic valve sclerosis without stenosis. Mild AR.
4. Mild to moderate mitral and tricuspid regurgitation.
5. No prior study available for comparison.
MRA 01/09
IMPRESSION:
1. CHRONIC OCCLUSION of the LEFT TRANSVERSE SINUS, SIGMOID SINUS, and INTERNAL JUGULAR VEIN.
2. 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
Influenza Encephalitis versus ADEM (although MRI not as indicative)
- MRI with nonspecific encephalitis with 'mild symmetric restricted diffusion and FLAIR hyperintense signal in cortices bilateral frontal lobes, lesser degree bilateral parietooccipital'
- Influenza B positive on admission
- LP 01/05 - CSF studies without elevated WBC, protein, neg paraneoplastic ab, Lyme and VDRL negative
- EEG 01/06 with unremarkable findings; repeat ordered on 01/10 - nl (with nl EEG, not concerned for CJD per Neurology)
- appreciate neurology and ID consult - after discussion we have started high dose steroids for potential treatment of ADEM (initiated on 01/10). Day 45
Hx Depression
-concern for subclinical seizures, appreciate Psychiatry and we are weaning down Wellbutrin
Possible Folate Deficiency
Macrocytosis on CBC
-contributing to presentation?
-F/U MMA and Homocysteine
-start repletion 5mg PO QD
Chronic lacunar infarct in the right cerebellum seen on MRI
-initiated on aspirin and high intensity statin, does not explain presentation
-s/p saline study above, no PFO
CAP
-s/p course of Ceftriaxone/Azithromycin
Dysphagia in setting of encephalopathy
-appreciate ST, modified diet ordered
Chronic Occlusion left transverse sinus, sigmoid sinus, IJ vein
-stable since 2015 (around time CA diagnosis)
-reviewed with neurosurgery, nothing to do given chronicity
Hypokalemia
-repleted
Acute urinary retention:
-s/p montes de oca, now removed
- Monitor for retention
Abnormal LFTs:
- Mild, resolved
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
- Status post surgery including mandibular resection, chemotherapy, and radiation
- Reportedly received radiation to the chest for lung nodules
- follows with Dr. Bajwa @ [facility] ([facility])
Thrush:
- Recently started on treatment by PCP, will continue
DVT prophylaxis: Lovenox
CODE STATUS: Full code
51 minutes spent on patient care
Anticipated Discharge: 24 - 48 hours
Subjective/Interval History
-
Date of Service: January 13, 2025
remains confused
Objective Data
-
Vital Signs:
Vital Signs
Temp Pulse Resp BP Pulse Ox
97.3 F 98 18 122/80 97
01/13/25 07:21 01/13/25 07:21 01/13/25 07:21 01/13/25 07:21 01/13/25 07:21
I&O
01/12/25 01/13/25 01/14/25
06:59 06:59 06:59
Intake Total 1539 / 1539 858 / 858
Output Total 300 / 300
Balance 1239 / 1239 858 / 858
Review of Systems
-
History Source: Patient
All other systems: Reviewed and negative
Physical Exam
-
General: Other (appears a bit restless, hoping to go home )
HEENT: Other (status post mandibular/neck surgery)
Respiratory: Clear to Auscultation; Negative Wheezes
Cardiac: Regular Rhythm and S1/S2
GI: Soft and Nontender
Musculoskeletal: No Edema
Skin: Warm and Dry; Negative Rash
Neuro: Awake and Alert
Psych: Confused
Data Reviewed
-
Diagnostic Radiology: Report Reviewed by me
Labs: Labs Reviewed by me
[2025-01-13 09:30] VITALS: BP 120/74; PULSE 102; PULSE 106; O2SAT 96
[2025-01-13] MEDS: DESENEX/MITRAZOL/ZEASORB 1 APPLIC TOPICAL ×2 (09:57→20:54)
[2025-01-13] MEDS: SOLU-MEDROL 258 MG IV (10:39)
--- NOTE | 2025-01-13 10:57 | CM ---
Per patient physician patient to have MRI thursday, so patient will be at through weekend. CM will update liaison with [facility]. CM will continue to follow for discharge planning needs.
Plan; [facility] when medically appropriate will need updated auth when appropriate
--- NOTE | 2025-01-13 12:29 | W.PN.UPDATE ---
Update Note
Progress Note Update
patient seen chart reviewed. discussed w nursing. at bedside. i have a very hard time understanding mrs owens. can interpret some of what she says. he reports she is stronger physically but she is still intermittently confused
which was my impression. however on a positive note she does not seem upset or agitated. she appears generally comfortable and seems very good at supporting her. discussed with both whether we should further decrease psych meds. there was
some concern re subclinical sz and that wellbutrin could be contributing as there is inc risk of sz w wellbutrin. eeg was unremarkable and at this point her mood is good. lamictal is protective vis a vis sz. reports there were periods where
patient would become dysphoric in the past given the stress of her illness. she does not appear depressed right now. encephalopathy while still present is better. she seems stronger physically. would leave meds as they are for now given these
factors. psych will look in on her over weekend.
--- NOTE | 2025-01-13 13:17 | W.PN.ID1 ---
Date of Service
Date of Service: January 13, 2025
Today's Communication
ID will sign off.
Assessment / Plan
# Encephalopathy - improving
# Influenza B positive (01/03/25) - significantly out of window for antiviral benefit
# h/o H+N ca s/p resection, completed Keytruda
# Lung mets s/p XRT (09/2024).
-Possible folate deficiency vs influenza post-infectious ADEM
- CSF unremarkable 1 wbc, normal glucose protein.
- MRI brain: nonspecific signal in frontal lobes and parietal-occipital lobe.
- Currently on folate supplement and empiric steroid, then taper.
ID will sign off.
Chief Complaint
-: Other (Change in mental status)
Subjective / Review of Systems
at bedside. He notes some improvement of mental status.
However, pt seems more restless since steroid.
Vital Signs / Physical Exam
Vital Signs
Vital Signs
Temp Pulse Resp BP Pulse Ox
97.3 F 98 18 122/80 97
01/13/25 07:21 01/13/25 07:21 01/13/25 07:21 01/13/25 07:21 01/13/25 07:21
Physical Exam
Constitutional: No Acute Distress and Comfortable
Eyes: Sclera Anicteric
Cardiovascular: Regular Rate and S1/S2
Pulmonary: Clear
Gastrointestinal: Soft, Non Tender, Non Distended and Normal Bowel Sounds
Genito-Urinary: Negative CVA Tenderness
Extremities: Negative Edema
Neurological: Awake, Alert and Oriented (oriented to Thursday, , [facility], son's age)
Objective Data
Lab Data
Lab Results
01/12/25 05:40
01/12/25 05:40
PT 17.0 Sec (11.4-14.6) H 01/05/25 13:58
INR 1.35 01/05/25 13:58
Estimated Creat Clear 92 ml/min 01/12/25 05:40
Total Bilirubin 0.7 mg/dl (0.2-1.3) 01/12/25 05:40
AST 39 U/L (14-36) H 01/12/25 05:40
ALT 24 U/L (0-35) 01/12/25 05:40
Alkaline Phosphatase 83 U/L (38-126) 01/12/25 05:40
Most recent labs reviewed.
Micro Results:
01/05/25 16:15 CSF Culture - Final
Csf No Growth After 5 Days - Final Report
Gram Stain - Final
01/04/25 13:17 Blood Culture - Final
Blood/Venous No Growth - Final Report
01/04/25 12:32 Blood Culture - Final
Blood/Venous No Growth - Final Report
01/05/25 16:15 Fungal Culture - Preliminary
Csf Culture in progress.
Positive cultures are reported as soon as detected.
Final report to follow in four to five weeks.
01/05/25 16:15 Acid Fast Bacilli Smear - Preliminary
Csf Acid Fast Bacilli Culture - Preliminary
01/05/25 16:15 Meningitis/Encephalitis Panel (PCR) - Final
Csf
01/03/25 16:00 Urine Culture - Final
Urine NO GROWTH
01/03/25 19:00 Influenza Types A & B (COLLETTE) - Final
Nasal Swab Influenza B Positive, NAAT
01/05/25 MRI brain: MRI findings are suspicious for a nonspecific encephalopathy with mild symmetric restricted diffusion and FLAIR hyperintense signal in the cortices of the bilateral frontal lobes, and to a lesser degree the bilateral
parieto-occipital lobes.
Care Review
Plan reviewed with: Physician (Dr. Trinh)
[2025-01-13 15:12] VITALS: BP 126/62
[2025-01-13] MEDS: LOVENOX 40 MG SC (16:23)
[2025-01-13] MEDS: LIPITOR 40 MG PO (16:23)
[2025-01-13] MEDS: STERILE WATER FOR INJECTION IV (16:24)
--- NOTE | 2025-01-13 16:29 | PTCARENOTE ---
Najma Ricketts RN via [facility] handed off green form and 100 mL morphine gtt medication bag to Gen Daniela RN to be initiated on [facility]. [facility] did not have supplies.
--- NOTE | 2025-01-13 16:45 | W.PN.NEURO.1 ---
Today's Communication / Plan
-
The patient appears to be much more alert today as compared to yesterday and is able to speak better than yesterday. Her also agrees that that she is better than yesterday. Her speech is better, she appears to be stronger and she
. Plan to continue with IV methylprednisolone 1,000 mg every 24 hours for 5 days. Today is day #4 of IV methylprednisolone.
. Recommend Protonix 40 mg daily while on IV methyprednisolone.
The plan is to repeat the MRI of the brain with and without contrast on Thursday.
Neuro Assessment/Plan
Assessment
Abrupt onset of change in mental status. This problem is been subacute beginning in September 2024 after radiation to the jaw for cancer treatment. The patient had progressed after that and began having confusion and hallucinations.
Differential diagnosis includes toxic metabolic encephalopathy, subacute stroke, medication overexposure including potentially due to lamotrigine. Following MRI of the brain, there is evidence of cortical ribbon enhancement which may be secondary
to encephalitis
Plan
Appreciate interventional radiology consult for lumbar puncture
Labs placed for checking CSF
Provide medications based on CSF findings
Continue to limit exposure to potentially sedating medications including oxycodone
Continue thiamine
Appreciate rehab evaluations
Check EEG
Await lamotrigine levels
Will follow
Subjective/Objective
Subjective Data
Date of Service: January 13, 2025
The patient appears to be much more alert today as compared to yesterday and is able to speak better than yesterday. Her also agrees that that she is better than yesterday. Her speech is better, she appears to be stronger and she is more
oriented today than yesterday. Today is day #4 of IV methylprednisolone.
The patient was sitting comfortably in the chair and was able to converse quite well. Her speech was better and she did not have any gross focal weakness. She was oriented to self and person.
. LP performed 01/05 and CSF studies are negative for infection so far; neg paraneoplastic ab, Lyme and VDRL not detected. In CSF there was 1 wbc, glucose 65 and protein 50.
. EEG was done on 01/06/2025 which was unremarkable.
. The ID consult has been obtained the impression is that need to consider ?possible influenza encephalitis versus postinfectious ADEM. A trial of steroids was recommended by ID.
. Plan to continue with IV methylprednisolone 1,000 mg every 24 hours for 5 days. Today is day #4 of IV methylprednisolone.
. Recommend Protonix 40 mg daily while on IV methyprednisolone.
The plan is to repeat the MRI of the brain with and without contrast on Thursday.
Discussed with Dr. Patsy Trinh.
Objective Data
Vital Signs
Temp Pulse Resp BP Pulse Ox
36.7 C 97 18 126/62 97
01/13/25 15:12 01/13/25 15:12 01/13/25 07:21 01/13/25 15:12 01/13/25 15:12
Lab Results
01/12/25 05:40
01/12/25 05:40
PT 17.0 Sec (11.4-14.6) H 01/05/25 13:58
INR 1.35 01/05/25 13:58
Sodium 136 mmol/L (135-145) 01/12/25 05:40
Potassium 3.6 mmol/L (3.5-5.1) 01/12/25 05:40
BUN 10 mg/dl (7-17) 01/12/25 05:40
Glucose 119 mg/dl (70-99) H 01/12/25 05:40
Calcium 8.9 mg/dl (8.4-10.2) 01/12/25 05:40
Phosphorus 3.6 mg/dl (2.5-4.5) 01/11/25 07:19
Vitamin B12 Cancelled 01/04/25 16:08
Patient Allergies
No Known Allergies Allergy (Verified 11/04/15 10:49)
Vital Signs and Labs
-
Vital Signs and Labs:
Vital Signs
Temp Pulse Resp BP Pulse Ox
36.7 C 97 18 126/62 97
01/13/25 15:12 01/13/25 15:12 01/13/25 07:21 01/13/25 15:12 01/13/25 15:12
Lab Results
01/12/25 05:40
01/12/25 05:40
PT 17.0 Sec (11.4-14.6) H 01/05/25 13:58
INR 1.35 01/05/25 13:58
Sodium 136 mmol/L (135-145) 01/12/25 05:40
Potassium 3.6 mmol/L (3.5-5.1) 01/12/25 05:40
BUN 10 mg/dl (7-17) 01/12/25 05:40
Glucose 119 mg/dl (70-99) H 01/12/25 05:40
Calcium 8.9 mg/dl (8.4-10.2) 01/12/25 05:40
Phosphorus 3.6 mg/dl (2.5-4.5) 01/11/25 07:19
Vitamin B12 Cancelled 01/04/25 16:08
Medications
-
Active Medications
Generic Name Dose Route Start Last Admin
Trade Name Freq PRN Reason Stop Dose Admin
Acetaminophen 650 mg 01/03/25 21:11
Acetaminophen 325 Mg Tablet PO 01/31/25 21:10
Q4HPRN PRN
mild pain/SUN/temp> 100.4F
Aspirin 81 mg 01/06/25 10:00 01/13/25 09:15
Aspirin 81 Mg (Enteric Coated) Tablet PO 02/03/25 09:59 81 mg
DAILY CAITLYN Administration
Atorvastatin Calcium 40 mg 01/08/25 18:00 01/13/25 16:23
Atorvastatin (Lipitor) 40 Mg Tablet PO 02/05/25 17:59 40 mg
QPM CAITLYN Administration
Bupropion HCl 100 mg 01/13/25 08:00 01/13/25 09:16
Bupropion (12hr) Sustained Release 100 Mg Tablet PO 02/10/25 07:59 100 mg
DAILY CAITLYN Administration
Enoxaparin Sodium 40 mg 01/04/25 18:00 01/13/25 16:23
Enoxaparin Sodium 40 Mg/0.4 Ml Syringe SC 02/01/25 17:59 40 mg
QPM CAITLYN Administration
Folic Acid 5 mg 01/11/25 12:00 01/13/25 09:16
Folic Acid 1 Mg Tablet PO 02/08/25 11:59 5 mg
DAILY CAITLYN Administration
Heparin Sodium (Porcine) 500 unit 01/03/25 17:00 01/10/25 04:37
Heparin Flush Pf (100 Unit/Ml) 5 Ml Syringe IV 01/31/25 16:59 500 unit
PER PROTOCOL CAITLYN Administration
Methylprednisolone Sodium 258 mls @ 258 mls/hr 01/12/25 10:00 01/13/25 10:39
Succinate 1,000 mg/ Sodium IV 01/14/25 10:59 258 mls
Chloride Q24H CAITLYN Administration
Lamotrigine 150 mg 01/04/25 08:00 01/13/25 09:17
Lamotrigine 100 Mg Tablet PO 02/01/25 07:59 150 mg
DAILY CAITLYN Administration
Levothyroxine Sodium 150 mcg 01/04/25 06:00 01/13/25 05:59
Levothyroxine 150 Mcg Tablet PO 02/01/25 05:59 150 mcg
DAILY @ 0600 CAITLYN Administration
Miconazole Nitrate 0 applic 01/04/25 20:00 01/13/25 09:57
Miconazole Powder Bottle TOPICAL 02/01/25 19:59 1 applic
BID CAITLYN Administration
Nystatin 4 ml 01/03/25 22:00 01/13/25 16:23
Nystatin Oral Suspension 500,000 Units/5 Ml PO 01/13/25 21:59 4 ml
QID CAITLYN Administration
Pantoprazole Sodium 40 mg 01/10/25 18:00 01/13/25 09:19
Pantoprazole Sodium 40 Mg/10 Ml Vial IV 02/07/25 17:59 40 mg
DAILY CAITLYN Administration
Quetiapine Fumarate 12.5 mg 01/11/25 07:03 01/11/25 16:14
Quetiapine 25 Mg Tablet PO 02/07/25 22:59 12.5 mg
Q8HPRN PRN Administration
agitation, give prior to MRI
Quetiapine Fumarate 12.5 mg 01/12/25 10:43 01/12/25 21:36
Quetiapine 25 Mg Tablet PO 02/08/25 21:59 12.5 mg
HS CAITLYN Administration
Sodium Chloride 0 flush 01/03/25 22:00
Sodium Chloride 0.9% (Flush) Syringe IV 01/31/25 21:59
PER PROTOCOL CAITLYN
Sodium Chloride 0.5 ml 01/04/25 16:15
Nss (Pf) 10 Ml Vial For Ativan 1 Mg Dose IV
ONCE PRN PRN
IV LORAZEPAM DILUTION
Sodium Chloride 10 ml 01/10/25 18:00 01/13/25 09:19
Sodium Chloride 0.9% (Preservative Free) 10 Ml Vial IV 02/07/25 17:59 10 ml
DAILY CAITLYN Administration
Sterile Water 10 ml 01/04/25 18:00 01/13/25 16:24
Sterile Water For Injection 10 Ml Vial IV 02/01/25 17:59 Not Given
Q24H CAITLYN
Thiamine HCl 100 mg 01/11/25 09:00 01/13/25 09:15
Thiamine 100 Mg Tablet PO 02/08/25 08:59 100 mg
BID CAITLYN Administration
Home Medications
�Medication �Instructions �Recorded
bupropion HCl 300 mg 24 hr tablet, 300 mg PO DAILY 08/24/14
extended release
lamotrigine 150 mg tablet 150 mg PO DAILY 08/21/16
levothyroxine 150 mcg tablet 150 mcg PO DAILY 01/03/25
lorazepam 1 mg tablet 1 mg PO Q4HPRN PRN anxiety 01/03/25
nystatin 100,000 unit/mL oral 4 ml PO QID 01/03/25
suspension
oxycodone 10 mg tablet 10 mg PO Q6HPRN PRN pain 01/03/25
[2025-01-13] MEDS: SEROQUEL 12.5 MG PO (21:28)
--- NOTE | 2025-01-13 22:20 | PTCARENOTE ---
Mycostatin reached stop date. Patient says her mouth does not hurt even when brushing teeth. Called pharmacy and was told it may not be appropriate to re-start. Gage MD could re-start if needed. Will advise gage.
[2025-01-13 23:20] VITALS: BP 126/78
[2025-01-14] MEDS: SYNTHROID 150 MCG PO (04:35)
[2025-01-14 07:15] VITALS: BP 133/89
[2025-01-14] MEDS: LAMICTAL 150 MG PO (09:08)
[2025-01-14] MEDS: ASPIR LOW (ENTERIC COATED) 81 MG PO (09:08)
[2025-01-14] MEDS: FOLVITE 5 MG PO (09:08)
[2025-01-14] MEDS: WELLBUTRIN SR (12 hour sustained release) 100 MG PO (09:09)
[2025-01-14] MEDS: DESENEX/MITRAZOL/ZEASORB 1 APPLIC TOPICAL ×2 (09:10→20:55)
[2025-01-14] MEDS: VITAMIN B1 100 MG PO ×2 (09:10→20:56)
[2025-01-14] MEDS: PROTONIX IV 40 MG IV (09:10)
[2025-01-14] MEDS: NSS (PRESERVATIVE FREE) 10 ML IV (09:10)
--- NOTE | 2025-01-14 09:44 | W.PN.HOSP.TC ---
Today's Communication/Plan
-
see plan
Assessment / Plan
Assessment / Plan
Ms. 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 Rafael Bajwa at [facility], recently treated with
radiation for lung nodules), hypothyroidism anxiety), and recent thrush (treated with nystatin swish and swallow) who presented for evaluation of encephalopathy. Her reports ongoing weakness for the past few weeks with a significant decline
since the Thursday prior to arrival (12/30/2024) when she was unable to ambulate on her own due to balance issues and began hallucinating. In the ED she was found to be positive for influenza B, with possible LLL pneumonia. Found to have old lacunar
infarct on MRI.
CXR 01/03/25
IMPRESSION:
Predominantly thickened linear opacity in the right midlung most likely representing subsegmental atelectasis.
Minimal patchy opacity in the left lung base which could represent subsegmental atelectasis, less likely pneumonia.
Right chest port with tip at the level of the cardiac right atrium.
HEAD CT
IMPRESSION:
1. No CT evidence for acute intracranial hemorrhage or transcortical infarct.
2. Mild diffuse cerebral and cerebellar volume loss.
3. Mild periventricular white matter leukoaraiosis.
4. 7.5 mm chronic white matter infarct in the right frontal lobe salazar radiata.
5. 5.6 mm chronic infarct in the right cerebellar hemisphere.
Brain MRI
IMPRESSION:
MRI findings are suspicious for a nonspecific encephalopathy with mild symmetric restricted diffusion and FLAIR hyperintense signal in the cortices of the bilateral frontal lobes, and to a lesser degree the bilateral parieto-occipital lobes.
Linear filling defect in the central lumen of the left sigmoid sinus. Differential considerations would include nonocclusive thrombus or flow related artifact.
TTE Saline Study
SUMMARY
1. Moderate LV systolic dysfunction. Global hypokinesis. The base of the heart contracts the best. Estimated LVEF 36%.
2. Negative agitated saline/bubble study for right to left shunt.
3. Aortic valve sclerosis without stenosis. Mild AR.
4. Mild to moderate mitral and tricuspid regurgitation.
5. No prior study available for comparison.
MRA 01/09
IMPRESSION:
1. CHRONIC OCCLUSION of the LEFT TRANSVERSE SINUS, SIGMOID SINUS, and INTERNAL JUGULAR VEIN.
2. 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
Influenza Encephalitis versus ADEM (although MRI not as indicative)
- MRI with nonspecific encephalitis with 'mild symmetric restricted diffusion and FLAIR hyperintense signal in cortices bilateral frontal lobes, lesser degree bilateral parietooccipital'
- Influenza B positive on admission
- LP 01/05 - CSF studies without elevated WBC, protein, neg paraneoplastic ab, Lyme and VDRL negative
- EEG 01/06 with unremarkable findings; repeat ordered on 01/10 - nl (with nl EEG, not concerned for CJD per Neurology)
- appreciate neurology and ID consult - after discussion we have started high dose steroids for potential treatment of ADEM (initiated on 01/10). Day 07/18; will start oral prednisone tomorrow and taper down
-MRI Thursday per Neurology
Hx Depression
-concern for subclinical seizures, appreciate Psychiatry and we are weaning down Wellbutrin
Possible Folate Deficiency
Macrocytosis on CBC
-contributing to presentation?
-Homocysteine - slightly elevated
-start repletion 5mg PO QD
Chronic lacunar infarct in the right cerebellum seen on MRI
-initiated on aspirin and high intensity statin, does not explain presentation
-s/p saline study above, no PFO
CAP
-s/p course of Ceftriaxone/Azithromycin
Dysphagia in setting of encephalopathy
-appreciate ST, modified diet ordered
Chronic Occlusion left transverse sinus, sigmoid sinus, IJ vein
-stable since 2015 (around time CA diagnosis)
-reviewed with neurosurgery, nothing to do given chronicity
Hypokalemia
-repleted
Acute urinary retention:
-s/p montes de oca, now removed
- Monitor for retention
Abnormal LFTs:
- Mild, resolved
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
- Status post surgery including mandibular resection, chemotherapy, and radiation
- Reportedly received radiation to the chest for lung nodules
- follows with Dr. Bajwa @ [facility] ([facility]) - left VM earlier this week
Thrush:
- Recently started on treatment by PCP, will continue
DVT prophylaxis: Lovenox
CODE STATUS: Full code
51 minutes spent on patient care
Anticipated Discharge: > 48 hours
Subjective/Interval History
-
Date of Service: January 14, 2025
seen sitting in chair
still confused, not able
Objective Data
-
Vital Signs:
Vital Signs
Temp Pulse Resp BP Pulse Ox
97.6 F 114 16 133/89 96
01/14/25 07:15 01/14/25 07:15 01/14/25 07:15 01/14/25 07:15 01/14/25 07:15
I&O
01/13/25 01/14/25 01/15/25
06:59 06:59 05:59
Intake Total 858 / 858 240 / 240
Balance 858 / 858 240 / 240
Review of Systems
-
History Source: Patient
All other systems: Reviewed and negative
Physical Exam
-
General: Other (appears a bit restless, hoping to go home )
HEENT: Other (status post mandibular/neck surgery)
Respiratory: Clear to Auscultation; Negative Wheezes
Cardiac: Regular Rhythm and S1/S2
GI: Soft and Nontender
Musculoskeletal: No Edema
Skin: Warm and Dry; Negative Rash
Neuro: Awake and Alert
Psych: Confused
Data Reviewed
-
Diagnostic Radiology: Report Reviewed by me
Labs: Labs Reviewed by me
[2025-01-14] MEDS: SOLU-MEDROL 258 MG IV (11:09)
--- NOTE | 2025-01-14 12:43 | W.PN.UPDATE ---
Update Note
Progress Note Update
Pt seen with at bedside. Pt alert, calm, cooperative, answering questions, talking, states she feels she is articulating better. Sensorium appears intact. reports pt called at 2am, mildly anxious; liked due to being on steroid.
Mood today is good.
Imp: TME, improving. Mood stable on reduced Wellbutrin
Rec: continue current psych med management; will follow
[2025-01-14 15:15] VITALS: BP 120/82
--- NOTE | 2025-01-14 17:06 | W.PN.NEURO.1 ---
Today's Communication / Plan
-
The patient appears to be much more alert today as compared to yesterday and is able to speak better than yesterday. Her also agrees that that she is better than yesterday. Her speech is better, she appears to be stronger and she
. Plan to continue with IV methylprednisolone 1,000 mg every 24 hours for 5 days. Today is day #4 of IV methylprednisolone.
. Recommend Protonix 40 mg daily while on IV methyprednisolone.
The plan is to repeat the MRI of the brain with and without contrast on Thursday.
Subjective/Objective
Subjective Data
Date of Service: January 14, 2025
. The patient appears to be more alert today as compared to yesterday and is able to speak better than yesterday. Her speech is better, she appears to be stronger
. Plan to continue with IV methylprednisolone 1,000 mg every 24 hours for 5 days. Today is day #5 of IV methylprednisolone.
. Recommend Protonix 40 mg daily while on IV methyprednisolone.
. The plan is to repeat the MRI of the brain with and without contrast on Thursday.
. LP performed 01/05 and CSF studies are negative for infection so far; neg paraneoplastic ab, Lyme and VDRL not detected. In CSF there was 1 wbc, glucose 65 and protein 50.
. EEG was done on 01/06/2025 which was unremarkable.
. The ID consult has been obtained the impression is that need to consider ?possible influenza encephalitis versus postinfectious ADEM. A trial of steroids was recommended by ID.
Neuro Assessment/Plan
Assessment
Abrupt onset of change in mental status. This problem is been subacute beginning in September 2024 after radiation to the jaw for cancer treatment. The patient had progressed after that and began having confusion and hallucinations.
Objective Data
Vital Signs
Temp Pulse Resp BP Pulse Ox
36.4 C 97 16 120/82 95
01/14/25 15:15 01/14/25 15:15 01/14/25 15:15 01/14/25 15:15 01/14/25 15:15
Lab Results
01/12/25 05:40
01/12/25 05:40
PT 17.0 Sec (11.4-14.6) H 01/05/25 13:58
INR 1.35 01/05/25 13:58
Sodium 136 mmol/L (135-145) 01/12/25 05:40
Potassium 3.6 mmol/L (3.5-5.1) 01/12/25 05:40
BUN 10 mg/dl (7-17) 01/12/25 05:40
Glucose 119 mg/dl (70-99) H 01/12/25 05:40
Calcium 8.9 mg/dl (8.4-10.2) 01/12/25 05:40
Phosphorus 3.6 mg/dl (2.5-4.5) 01/11/25 07:19
Vitamin B12 Cancelled 01/04/25 16:08
Patient Allergies
No Known Allergies Allergy (Verified 11/04/15 10:49)
Vital Signs and Labs
-
Vital Signs and Labs:
Vital Signs
Temp Pulse Resp BP Pulse Ox
36.4 C 97 16 120/82 95
01/14/25 15:15 01/14/25 15:15 01/14/25 15:15 01/14/25 15:15 01/14/25 15:15
Lab Results
01/12/25 05:40
01/12/25 05:40
PT 17.0 Sec (11.4-14.6) H 01/05/25 13:58
INR 1.35 01/05/25 13:58
Sodium 136 mmol/L (135-145) 01/12/25 05:40
Potassium 3.6 mmol/L (3.5-5.1) 01/12/25 05:40
BUN 10 mg/dl (7-17) 01/12/25 05:40
Glucose 119 mg/dl (70-99) H 01/12/25 05:40
Calcium 8.9 mg/dl (8.4-10.2) 01/12/25 05:40
Phosphorus 3.6 mg/dl (2.5-4.5) 01/11/25 07:19
Vitamin B12 Cancelled 01/04/25 16:08
Medications
-
Active Medications
Generic Name Dose Route Start Last Admin
Trade Name Freq PRN Reason Stop Dose Admin
Acetaminophen 650 mg 01/03/25 21:11
Acetaminophen 325 Mg Tablet PO 01/31/25 21:10
Q4HPRN PRN
mild pain/SUN/temp> 100.4F
Aspirin 81 mg 01/06/25 10:00 01/14/25 09:08
Aspirin 81 Mg (Enteric Coated) Tablet PO 02/03/25 09:59 81 mg
DAILY CAITLYN Administration
Atorvastatin Calcium 40 mg 01/08/25 18:00 01/13/25 16:23
Atorvastatin (Lipitor) 40 Mg Tablet PO 02/05/25 17:59 40 mg
QPM CAITLYN Administration
Bupropion HCl 100 mg 01/13/25 08:00 01/14/25 09:09
Bupropion (12hr) Sustained Release 100 Mg Tablet PO 02/10/25 07:59 100 mg
DAILY CAITLYN Administration
Enoxaparin Sodium 40 mg 01/04/25 18:00 01/13/25 16:23
Enoxaparin Sodium 40 Mg/0.4 Ml Syringe SC 02/01/25 17:59 40 mg
QPM CAITLYN Administration
Folic Acid 5 mg 01/11/25 12:00 01/14/25 09:08
Folic Acid 1 Mg Tablet PO 02/08/25 11:59 5 mg
DAILY CAITLYN Administration
Heparin Sodium (Porcine) 500 unit 01/03/25 17:00 01/10/25 04:37
Heparin Flush Pf (100 Unit/Ml) 5 Ml Syringe IV 01/31/25 16:59 500 unit
PER PROTOCOL CAITLYN Administration
Lamotrigine 150 mg 01/04/25 08:00 01/14/25 09:08
Lamotrigine 100 Mg Tablet PO 02/01/25 07:59 150 mg
DAILY CAITLYN Administration
Levothyroxine Sodium 150 mcg 01/04/25 06:00 01/14/25 04:35
Levothyroxine 150 Mcg Tablet PO 02/01/25 05:59 150 mcg
DAILY @ 0600 CAITLYN Administration
Miconazole Nitrate 0 applic 01/04/25 20:00 01/14/25 09:10
Miconazole Powder Bottle TOPICAL 02/01/25 19:59 1 applic
BID CAITLYN Administration
Pantoprazole Sodium 40 mg 01/15/25 08:00
Pantoprazole 40 Mg Delayed Release Tablet PO 02/12/25 07:59
DAILY CAITLYN
Prednisone 40 mg 01/15/25 08:00
Prednisone 20 Mg Tablet PO 02/12/25 07:59
DAILY CAITLYN
Quetiapine Fumarate 12.5 mg 01/11/25 07:03 01/11/25 16:14
Quetiapine 25 Mg Tablet PO 02/07/25 22:59 12.5 mg
Q8HPRN PRN Administration
agitation, give prior to MRI
Quetiapine Fumarate 12.5 mg 01/12/25 10:43 01/13/25 21:28
Quetiapine 25 Mg Tablet PO 02/08/25 21:59 12.5 mg
HS CAITLYN Administration
Sodium Chloride 0 flush 01/03/25 22:00
Sodium Chloride 0.9% (Flush) Syringe IV 01/31/25 21:59
PER PROTOCOL CAITLYN
Sodium Chloride 0.5 ml 01/04/25 16:15
Nss (Pf) 10 Ml Vial For Ativan 1 Mg Dose IV
ONCE PRN PRN
IV LORAZEPAM DILUTION
Sterile Water 10 ml 01/04/25 18:00 01/13/25 16:24
Sterile Water For Injection 10 Ml Vial IV 02/01/25 17:59 Not Given
Q24H CAITLYN
Thiamine HCl 100 mg 01/11/25 09:00 01/14/25 09:10
Thiamine 100 Mg Tablet PO 02/08/25 08:59 100 mg
BID CAITLYN Administration
Home Medications
�Medication �Instructions �Recorded
bupropion HCl 300 mg 24 hr tablet, 300 mg PO DAILY 08/24/14
extended release
lamotrigine 150 mg tablet 150 mg PO DAILY 11/04/15
levothyroxine 150 mcg tablet 150 mcg PO DAILY 01/03/25
lorazepam 1 mg tablet 1 mg PO Q4HPRN PRN anxiety 01/03/25
nystatin 100,000 unit/mL oral 4 ml PO QID 01/03/25
suspension
oxycodone 10 mg tablet 10 mg PO Q6HPRN PRN pain 01/03/25
[2025-01-14] MEDS: LIPITOR 40 MG PO (17:50)
[2025-01-14] MEDS: LOVENOX 40 MG SC (17:50)
[2025-01-14] MEDS: STERILE WATER FOR INJECTION IV (17:51)
[2025-01-14] MEDS: SEROQUEL 12.5 MG PO (21:00)
[2025-01-14 23:11] VITALS: BP 127/74
[2025-01-15] MEDS: SYNTHROID 150 MCG PO (04:24)
[2025-01-15 07:11] VITALS: BP 143/90
[2025-01-15 07:49] LABS: Hematocrit 31.9 % (37.0-47.0); Hemoglobin 10.6 g/dL (12.0-16.0); Mean Corp Hgb Conc. 33.2 g/dL (33.0-37.0); Mean Corpuscular Volume 119.9 fL (81.0-99.0); Platelet Count 181 10^3/uL (130-400); Red Cell Dist. Width 13.7 % (11.5-14.5)
[2025-01-15 08:19] LABS: Blood Urea Nitrogen 9 mg/dl (7-17); Calcium 8.5 mg/dl (8.4-10.2); Carbon Dioxide 28 mmol/L (22-30); Chloride 106 mmol/L (98-107); Estimated Creatinine Clearance 92 ml/min; Glucose 104 mg/dl (70-99); Magnesium 1.6 mg/dl (1.6-2.3); Potassium 2.7 mmol/L (3.5-5.1); Sodium 140 mmol/L (135-145); eGFR > 60.00
--- NOTE | 2025-01-15 08:36 | W.PN.HOSP.TC ---
Today's Communication/Plan
-
oral prednisone
MRI Brain with and without contrast in AM
replete Potassium and recheck later
eventual SNF
appreciate ID and Neurology
Assessment / Plan
Assessment / Plan
Ms. 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 Rafael Bajwa at [facility], recently treated with
radiation for lung nodules), hypothyroidism anxiety), and recent thrush (treated with nystatin swish and swallow) who presented for evaluation of encephalopathy. Her reports ongoing weakness for the past few weeks with a significant decline
since the Thursday prior to arrival (12/30/2024) when she was unable to ambulate on her own due to balance issues and began hallucinating. In the ED she was found to be positive for influenza B, with possible LLL pneumonia. Found to have old lacunar
infarct on MRI.
CXR 01/03/25
IMPRESSION:
Predominantly thickened linear opacity in the right midlung most likely representing subsegmental atelectasis.
Minimal patchy opacity in the left lung base which could represent subsegmental atelectasis, less likely pneumonia.
Right chest port with tip at the level of the cardiac right atrium.
HEAD CT
IMPRESSION:
1. No CT evidence for acute intracranial hemorrhage or transcortical infarct.
2. Mild diffuse cerebral and cerebellar volume loss.
3. Mild periventricular white matter leukoaraiosis.
4. 7.5 mm chronic white matter infarct in the right frontal lobe salazar radiata.
5. 5.6 mm chronic infarct in the right cerebellar hemisphere.
Brain MRI
IMPRESSION:
MRI findings are suspicious for a nonspecific encephalopathy with mild symmetric restricted diffusion and FLAIR hyperintense signal in the cortices of the bilateral frontal lobes, and to a lesser degree the bilateral parieto-occipital lobes.
Linear filling defect in the central lumen of the left sigmoid sinus. Differential considerations would include nonocclusive thrombus or flow related artifact.
TTE Saline Study
SUMMARY
1. Moderate LV systolic dysfunction. Global hypokinesis. The base of the heart contracts the best. Estimated LVEF 36%.
2. Negative agitated saline/bubble study for right to left shunt.
3. Aortic valve sclerosis without stenosis. Mild AR.
4. Mild to moderate mitral and tricuspid regurgitation.
5. No prior study available for comparison.
MRA 01/09
IMPRESSION:
1. CHRONIC OCCLUSION of the LEFT TRANSVERSE SINUS, SIGMOID SINUS, and INTERNAL JUGULAR VEIN.
2. 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
Influenza Encephalitis versus ADEM (although MRI not as indicative)
- MRI with nonspecific encephalitis with 'mild symmetric restricted diffusion and FLAIR hyperintense signal in cortices bilateral frontal lobes, lesser degree bilateral parietooccipital'
- Influenza B positive on admission
- LP 01/05 - CSF studies without elevated WBC, protein, neg paraneoplastic ab, Lyme and VDRL negative
- EEG 01/06 with unremarkable findings; repeat ordered on 01/10 - nl (with nl EEG, not concerned for CJD per Neurology)
- appreciate neurology and ID consult - after discussion we have started high dose steroids for potential treatment of ADEM (initiated on 01/10). s/p 5 days; now start oral Prednisone today with plans to taper (confirm Neurology recommendations for
steroids)
- MRI Brain with and without contrast Thursday per Neurology
Hx Depression
-concern for subclinical seizures, appreciate Psychiatry and we are weaning down Wellbutrin
Hypokalemia
-K 2.7 this morning --> replete and recheck this afternoon
-daily repletion
-add ensure to meals
Possible Folate Deficiency
Macrocytosis on CBC
-contributing to presentation?
-Homocysteine - slightly elevated
-start repletion 5mg PO QD
Chronic lacunar infarct in the right cerebellum seen on MRI
-initiated on aspirin and high intensity statin, does not explain presentation
-s/p saline study above, no PFO
CAP
-s/p course of Ceftriaxone/Azithromycin
Dysphagia in setting of encephalopathy
-appreciate ST, modified diet ordered
-add ensure
Chronic Occlusion left transverse sinus, sigmoid sinus, IJ vein
-stable since 2016 (around time CA diagnosis)
-reviewed with neurosurgery, nothing to do given chronicity
Hypokalemia
-repleted
Acute urinary retention:
-s/p montes de oca, now removed
- Monitor for retention
Abnormal LFTs:
- Mild, resolved
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
- Status post surgery including mandibular resection, chemotherapy, and radiation
- Reportedly received radiation to the chest for lung nodules
- follows with Dr. Bajwa @ [facility] ([facility]) - left VM earlier this week
Thrush:
- Recently started on treatment by PCP, will continue
DVT prophylaxis: Lovenox
CODE STATUS: Full code
51 minutes spent on patient care
Anticipated Discharge: 24 - 48 hours
Subjective/Interval History
-
Date of Service: January 15, 2025
thought she was at [facility] this morning but states she is getting better and stronger
Objective Data
-
Labs:
Laboratory Results
01/15/25 01/15/25
06:37 14:00
WBC 4.0 L
Hgb 10.6 L
Hct 31.9 L
Plt Count 181
Sodium 140
Potassium 2.7 L* Pending
Chloride 106
Carbon Dioxide 28
BUN 9
Creatinine 0.5 L
Glucose 104 H
Calcium 8.5
Vital Signs:
Vital Signs
Temp Pulse Resp BP Pulse Ox
98.2 F 96 18 127/74 96
01/14/25 23:11 01/14/25 23:11 01/14/25 23:11 01/14/25 23:11 01/14/25 23:11
I&O
01/14/25 01/15/25 01/16/25
06:59 05:59 06:59
Intake Total 240 / 240 1210 / 1210
Output Total 800 / 800
Balance 240 / 240 410 / 410
Review of Systems
-
History Source: Patient
All other systems: Reviewed and negative
Physical Exam
-
General: Other (appears a bit restless, eating breakfast )
HEENT: Other (status post mandibular/neck surgery)
Respiratory: Clear to Auscultation; Negative Wheezes
Cardiac: Regular Rhythm and S1/S2
GI: Soft and Nontender
Musculoskeletal: No Edema
Skin: Warm and Dry; Negative Rash
Neuro: Awake and Alert
Psych: Confused
Data Reviewed
-
Diagnostic Radiology: Report Reviewed by me
Labs: Labs Reviewed by me
[2025-01-15] MEDS: KCL 260 MEQ IV (08:49)
[2025-01-15] MEDS: PROTONIX 40 MG PO (08:50)
[2025-01-15] MEDS: FOLVITE 5 MG PO (08:50)
[2025-01-15] MEDS: VITAMIN B1 100 MG PO ×2 (08:50→20:10)
[2025-01-15] MEDS: ASPIR LOW (ENTERIC COATED) 81 MG PO (08:50)
[2025-01-15] MEDS: WELLBUTRIN SR (12 hour sustained release) 100 MG PO (08:51)
[2025-01-15] MEDS: LAMICTAL 150 MG PO (08:51)
[2025-01-15] MEDS: DELTASONE 40 MG PO (08:51)
[2025-01-15] MEDS: KCL ELIXIR 40 MEQ PO ×2 (09:00→14:23)
[2025-01-15] MEDS: DESENEX/MITRAZOL/ZEASORB 1 APPLIC TOPICAL ×2 (09:00→20:10)
[2025-01-15 14:14] LABS: Potassium 3.2 mmol/L (3.5-5.1)
--- NOTE | 2025-01-15 14:38 | W.PN.NEURO.1 ---
Today's Communication / Plan
-
. The patient has been becoming more alert and stronger since IV methylprednisolone was started. The patient received 5 days of IV methylprednisolone which ended yesterday and according to her she is more alert and stronger than before and
also her memory is slightly better.
. The plan is to repeat the MRI of the brain with and without contrast on Thursday.
Neuro Assessment/Plan
Assessment
Abrupt onset of change in mental status. This problem is been subacute beginning in September 2024 after radiation to the jaw for cancer treatment. The patient had progressed after that and began having confusion and hallucinations.
Differential diagnosis includes toxic metabolic encephalopathy, subacute stroke, medication overexposure including potentially due to lamotrigine. Following MRI of the brain, there is evidence of cortical ribbon enhancement which may be secondary
to encephalitis
Plan
Appreciate interventional radiology consult for lumbar puncture
Labs placed for checking CSF
Provide medications based on CSF findings
Continue to limit exposure to potentially sedating medications including oxycodone
Continue thiamine
Appreciate rehab evaluations
Check EEG
Await lamotrigine levels
Will follow
Subjective/Objective
Subjective Data
Date of Service: January 15, 2025
. 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
. Influenza B positive (01/03/25)
. The patient has been becoming more alert and stronger since IV methylprednisolone was started. The patient received 5 days of IV methylprednisolone which ended yesterday and according to her she is more alert and stronger than before and
also her memory is slightly better.
. The ID consult has been obtained the impression is that need to consider ?possible influenza encephalitis versus postinfectious ADEM. A trial of steroids was recommended by ID.
. 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
. MRI Brain done on 01/05/2025 showed mild symmetric restricted diffusion and FLAIR hyperintense signal in the cortices of the bilateral frontal lobes, and to a lesser degree the bilateral parieto-occipital lobes.
. The plan is to repeat the MRI of the brain with and without contrast on Thursday.
. LP performed 01/05 and CSF studies are negative for infection so far; neg paraneoplastic ab, Lyme and VDRL not detected. In CSF there was 1 wbc, glucose 65 and protein 50.
. EEG was done on 01/06/2025 which was unremarkable.
Objective Data
Vital Signs
Temp Pulse Resp BP Pulse Ox
36.8 C 107 18 143/90 96
01/15/25 07:11 01/15/25 07:11 01/15/25 07:11 01/15/25 07:11 01/15/25 07:11
Lab Results
01/15/25 06:37
01/15/25 13:51
PT 17.0 Sec (11.4-14.6) H 01/05/25 13:58
INR 1.35 01/05/25 13:58
Sodium 140 mmol/L (135-145) 01/15/25 06:37
Potassium 3.2 mmol/L (3.5-5.1) L 01/15/25 13:51
BUN 9 mg/dl (7-17) 01/15/25 06:37
Glucose 104 mg/dl (70-99) H 01/15/25 06:37
Calcium 8.5 mg/dl (8.4-10.2) 01/15/25 06:37
Phosphorus 3.6 mg/dl (2.5-4.5) 01/11/25 07:19
Vitamin B12 Cancelled 01/04/25 16:08
Patient Allergies
No Known Allergies Allergy (Verified 11/04/15 10:49)
Vital Signs and Labs
-
Vital Signs and Labs:
Vital Signs
Temp Pulse Resp BP Pulse Ox
36.8 C 107 18 143/90 96
01/15/25 07:11 01/15/25 07:11 01/15/25 07:11 01/15/25 07:11 01/15/25 07:11
Lab Results
01/15/25 06:37
01/15/25 13:51
PT 17.0 Sec (11.4-14.6) H 01/05/25 13:58
INR 1.35 01/05/25 13:58
Sodium 140 mmol/L (135-145) 01/15/25 06:37
Potassium 3.2 mmol/L (3.5-5.1) L 01/15/25 13:51
BUN 9 mg/dl (7-17) 01/15/25 06:37
Glucose 104 mg/dl (70-99) H 01/15/25 06:37
Calcium 8.5 mg/dl (8.4-10.2) 01/15/25 06:37
Phosphorus 3.6 mg/dl (2.5-4.5) 01/11/25 07:19
Vitamin B12 Cancelled 01/04/25 16:08
Medications
-
Active Medications
Generic Name Dose Route Start Last Admin
Trade Name Freq PRN Reason Stop Dose Admin
Acetaminophen 650 mg 01/03/25 21:11
Acetaminophen 325 Mg Tablet PO 01/31/25 21:10
Q4HPRN PRN
mild pain/SUN/temp> 100.4F
Aspirin 81 mg 01/06/25 10:00 01/15/25 08:50
Aspirin 81 Mg (Enteric Coated) Tablet PO 02/03/25 09:59 81 mg
DAILY CAITLYN Administration
Atorvastatin Calcium 40 mg 01/08/25 18:00 01/14/25 17:50
Atorvastatin (Lipitor) 40 Mg Tablet PO 02/05/25 17:59 40 mg
QPM CAITLYN Administration
Bupropion HCl 100 mg 01/13/25 08:00 01/15/25 08:51
Bupropion (12hr) Sustained Release 100 Mg Tablet PO 02/10/25 07:59 100 mg
DAILY CAITLYN Administration
Enoxaparin Sodium 40 mg 01/04/25 18:00 01/14/25 17:50
Enoxaparin Sodium 40 Mg/0.4 Ml Syringe SC 02/01/25 17:59 40 mg
QPM CAITLYN Administration
Folic Acid 5 mg 01/11/25 12:00 01/15/25 08:50
Folic Acid 1 Mg Tablet PO 02/08/25 11:59 5 mg
DAILY CAITLYN Administration
Heparin Sodium (Porcine) 500 unit 01/03/25 17:00 01/10/25 04:37
Heparin Flush Pf (100 Unit/Ml) 5 Ml Syringe IV 01/31/25 16:59 500 unit
PER PROTOCOL CAITLYN Administration
Lamotrigine 150 mg 01/04/25 08:00 01/15/25 08:51
Lamotrigine 100 Mg Tablet PO 02/01/25 07:59 150 mg
DAILY CAITLYN Administration
Levothyroxine Sodium 150 mcg 01/04/25 06:00 01/15/25 04:24
Levothyroxine 150 Mcg Tablet PO 02/01/25 05:59 150 mcg
DAILY @ 0600 CAITLYN Administration
Miconazole Nitrate 0 applic 01/04/25 20:00 01/15/25 09:00
Miconazole Powder Bottle TOPICAL 02/01/25 19:59 1 applic
BID CAITLYN Administration
Pantoprazole Sodium 40 mg 01/15/25 08:00 01/15/25 08:50
Pantoprazole 40 Mg Delayed Release Tablet PO 02/12/25 07:59 40 mg
DAILY CAITLYN Administration
Potassium Chloride 20 meq 01/16/25 08:00
Potassium Chloride 20 Meq Powder Packet PO 02/13/25 07:59
DAILY CAITLYN
Prednisone 40 mg 01/15/25 08:00 01/15/25 08:51
Prednisone 20 Mg Tablet PO 02/12/25 07:59 40 mg
DAILY CAITLYN Administration
Quetiapine Fumarate 12.5 mg 01/11/25 07:03 01/11/25 16:14
Quetiapine 25 Mg Tablet PO 02/07/25 22:59 12.5 mg
Q8HPRN PRN Administration
agitation, give prior to MRI
Quetiapine Fumarate 12.5 mg 01/12/25 10:43 01/14/25 21:00
Quetiapine 25 Mg Tablet PO 02/08/25 21:59 12.5 mg
HS CAITLYN Administration
Sodium Chloride 0 flush 01/03/25 22:00
Sodium Chloride 0.9% (Flush) Syringe IV 01/31/25 21:59
PER PROTOCOL CAITLYN
Sodium Chloride 0.5 ml 01/04/25 16:15
Nss (Pf) 10 Ml Vial For Ativan 1 Mg Dose IV
ONCE PRN PRN
IV LORAZEPAM DILUTION
Sterile Water 10 ml 01/04/25 18:00 01/14/25 17:51
Sterile Water For Injection 10 Ml Vial IV 02/01/25 17:59 Not Given
Q24H CAITLYN
Thiamine HCl 100 mg 01/11/25 09:00 01/15/25 08:50
Thiamine 100 Mg Tablet PO 02/08/25 08:59 100 mg
BID CAITLYN Administration
Home Medications
�Medication �Instructions �Recorded
bupropion HCl 300 mg 24 hr tablet, 300 mg PO DAILY 08/24/14
extended release
lamotrigine 150 mg tablet 150 mg PO DAILY 11/04/15
levothyroxine 150 mcg tablet 150 mcg PO DAILY 01/03/25
lorazepam 1 mg tablet 1 mg PO Q4HPRN PRN anxiety 01/03/25
nystatin 100,000 unit/mL oral 4 ml PO QID 01/03/25
suspension
oxycodone 10 mg tablet 10 mg PO Q6HPRN PRN pain 01/03/25
[2025-01-15 15:00] VITALS: BP 111/69
[2025-01-15] MEDS: LOVENOX 40 MG SC (17:34)
[2025-01-15] MEDS: LIPITOR 40 MG PO (17:34)
[2025-01-15] MEDS: STERILE WATER FOR INJECTION IV (17:35)
[2025-01-15] MEDS: SEROQUEL 12.5 MG PO (20:50)
[2025-01-15 23:01] VITALS: BP 116/82
[2025-01-16] MEDS: SYNTHROID 150 MCG PO (05:45)
[2025-01-16 07:26] VITALS: BP 134/87
--- NOTE | 2025-01-16 07:28 | W.PN.NEURO.1 ---
Today's Communication / Plan
-
repeat the MRI of the brain with contrast; if continued encephalopathy and changes by MRI, consider plasma exchange
Continue to limit exposure to potentially sedating medications including oxycodone
Continue thiamine
Appreciate rehab evaluations
Neuro Assessment/Plan
Assessment
Abrupt onset of change in mental status. This problem is been subacute beginning in September 2024 after radiation to the jaw for cancer treatment. The patient had progressed after that and began having confusion and hallucinations. Past medical
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
Influenza B positive (01/03/25)
The patient has been becoming more alert and stronger since IV methylprednisolone was started. The patient received 5 days of IV methylprednisolone which ended yesterday and according to her she is more alert and stronger than before and
also her memory is slightly better.
ID recommended consideration of ?possible influenza encephalitis versus postinfectious ADEM. A trial of steroids was recommended by ID.
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
MRI Brain done on 01/05/2025 showed mild symmetric restricted diffusion and FLAIR hyperintense signal in the cortices of the bilateral frontal lobes, and to a lesser degree the bilateral parieto-occipital lobes.
LP performed 01/05 and CSF studies are negative for infection so far; neg paraneoplastic ab, Lyme and VDRL not detected. In CSF there was 1 wbc, glucose 65 and protein 50.
EEG was done on 01/06/2025 which was unremarkable.
Differential diagnosis includes toxic metabolic encephalopathy, steroid responsive encephalopathy attributable to thyroiditis. Following MRI of the brain, there is evidence of cortical ribbon enhancement which may be secondary to encephalitis
Plan
repeat the MRI of the brain with contrast; if continued encephalopathy and changes by MRI, consider plasma exchange
Continue to limit exposure to potentially sedating medications including oxycodone
Continue thiamine
Appreciate rehab evaluations
Will follow
Subjective/Objective
Subjective Data
Date of Service: January 16, 2025
Objective Data
Vital Signs
Temp Pulse Resp BP Pulse Ox
36.9 C 103 18 134/87 97
01/16/25 07:26 01/16/25 07:26 01/16/25 07:26 01/16/25 07:26 01/16/25 07:26
Lab Results
01/15/25 06:37
PT 17.0 Sec (11.4-14.6) H 01/05/25 13:58
INR 1.35 01/05/25 13:58
Sodium 140 mmol/L (135-145) 01/15/25 06:37
Potassium 3.2 mmol/L (3.5-5.1) L 01/15/25 13:51
BUN 9 mg/dl (7-17) 01/15/25 06:37
Glucose 104 mg/dl (70-99) H 01/15/25 06:37
Calcium 8.5 mg/dl (8.4-10.2) 01/15/25 06:37
Phosphorus 3.6 mg/dl (2.5-4.5) 01/11/25 07:19
Vitamin B12 Cancelled 01/04/25 16:08
Patient Allergies
No Known Allergies Allergy (Verified 11/04/15 10:49)
Data Reviewed
-
MRI Head: Pending and Report Reviewed
Labs: Report Reviewed
Reviewed with: Physician and Nurse Practioner
Old Records: Summarized
Past History
Past History
ED Past Medical History: Cancer (Muco-epidermoid carcinoma floor of mouth and tongue)
ED Past Surgical History: Appendectomy and Other (Jaw Surgery x 2)
Social History
Tobacco: Smoker
Alcohol: Occasional
Personal:
Living: with family
Family History
Family History: Other (Reviewed and noncontributory)
Medications
-
Medications:
Generic Name Dose Route Start Last Admin
Trade Name Freq PRN Reason Stop Dose Admin
Acetaminophen 650 mg 01/03/25 21:11
Acetaminophen 325 Mg Tablet PO 01/31/25 21:10
Q4HPRN PRN
mild pain/SUN/temp> 100.4F
Aspirin 81 mg 01/06/25 10:00 01/15/25 08:50
Aspirin 81 Mg (Enteric Coated) Tablet PO 02/03/25 09:59 81 mg
DAILY CAITLYN Administration
Atorvastatin Calcium 40 mg 01/08/25 18:00 01/15/25 17:34
Atorvastatin (Lipitor) 40 Mg Tablet PO 02/05/25 17:59 40 mg
QPM CAITLYN Administration
Bupropion HCl 100 mg 01/13/25 08:00 01/15/25 08:51
Bupropion (12hr) Sustained Release 100 Mg Tablet PO 02/10/25 07:59 100 mg
DAILY CAITLYN Administration
Enoxaparin Sodium 40 mg 01/04/25 18:00 01/15/25 17:34
Enoxaparin Sodium 40 Mg/0.4 Ml Syringe SC 02/01/25 17:59 40 mg
QPM CAITLYN Administration
Folic Acid 5 mg 01/11/25 12:00 01/15/25 08:50
Folic Acid 1 Mg Tablet PO 02/08/25 11:59 5 mg
DAILY CAITLYN Administration
Heparin Sodium (Porcine) 500 unit 01/03/25 17:00 01/10/25 04:37
Heparin Flush Pf (100 Unit/Ml) 5 Ml Syringe IV 01/31/25 16:59 500 unit
PER PROTOCOL CAITLYN Administration
Lamotrigine 150 mg 01/04/25 08:00 01/15/25 08:51
Lamotrigine 100 Mg Tablet PO 02/01/25 07:59 150 mg
DAILY CAITLYN Administration
Levothyroxine Sodium 150 mcg 01/04/25 06:00 01/16/25 05:45
Levothyroxine 150 Mcg Tablet PO 02/01/25 05:59 150 mcg
DAILY @ 0600 CAITLYN Administration
Miconazole Nitrate 0 applic 01/04/25 20:00 01/15/25 20:10
Miconazole Powder Bottle TOPICAL 02/01/25 19:59 1 applic
BID CAITLYN Administration
Pantoprazole Sodium 40 mg 01/15/25 08:00 01/15/25 08:50
Pantoprazole 40 Mg Delayed Release Tablet PO 02/12/25 07:59 40 mg
DAILY CAITLYN Administration
Potassium Chloride 20 meq 01/16/25 08:00
Potassium Chloride 20 Meq Powder Packet PO 02/13/25 07:59
DAILY CAITLYN
Prednisone 40 mg 01/15/25 08:00 01/15/25 08:51
Prednisone 20 Mg Tablet PO 02/12/25 07:59 40 mg
DAILY CAITLYN Administration
Quetiapine Fumarate 12.5 mg 01/11/25 07:03 01/11/25 16:14
Quetiapine 25 Mg Tablet PO 02/07/25 22:59 12.5 mg
Q8HPRN PRN Administration
agitation, give prior to MRI
Quetiapine Fumarate 12.5 mg 01/12/25 10:43 01/15/25 20:50
Quetiapine 25 Mg Tablet PO 02/08/25 21:59 12.5 mg
HS CAITLYN Administration
Sodium Chloride 0 flush 01/03/25 22:00
Sodium Chloride 0.9% (Flush) Syringe IV 01/31/25 21:59
PER PROTOCOL CAITLYN
Sodium Chloride 0.5 ml 01/04/25 16:15
Nss (Pf) 10 Ml Vial For Ativan 1 Mg Dose IV
ONCE PRN PRN
IV LORAZEPAM DILUTION
Sterile Water 10 ml 01/04/25 18:00 01/15/25 17:35
Sterile Water For Injection 10 Ml Vial IV 02/01/25 17:59 Not Given
Q24H CAITLYN
Thiamine HCl 100 mg 01/11/25 09:00 01/15/25 20:10
Thiamine 100 Mg Tablet PO 02/08/25 08:59 100 mg
BID CAITLYN Administration
[2025-01-16] MEDS: KLOR-CON 20 MEQ PO (07:52)
[2025-01-16] MEDS: PROTONIX 40 MG PO (07:53)
[2025-01-16] MEDS: VITAMIN B1 100 MG PO ×2 (07:53→20:41)
[2025-01-16] MEDS: ASPIR LOW (ENTERIC COATED) 81 MG PO (07:53)
[2025-01-16] MEDS: WELLBUTRIN SR (12 hour sustained release) 100 MG PO (07:53)
[2025-01-16] MEDS: LAMICTAL 150 MG PO (07:53)
[2025-01-16] MEDS: DELTASONE 40 MG PO (07:53)
[2025-01-16] MEDS: FOLVITE 5 MG PO (07:53)
[2025-01-16] MEDS: DESENEX/MITRAZOL/ZEASORB 1 APPLIC TOPICAL ×2 (08:00→20:41)
[2025-01-16 09:18] LABS: Blood Urea Nitrogen 7 mg/dl (7-17); Calcium 8.7 mg/dl (8.4-10.2); Carbon Dioxide 28 mmol/L (22-30); Chloride 105 mmol/L (98-107); Estimated Creatinine Clearance 92 ml/min; Glucose 68 mg/dl (70-99); Sodium 140 mmol/L (135-145); eGFR > 60.00
[2025-01-16 09:25] LABS: Potassium 3.3 mmol/L (3.5-5.1)
--- NOTE | 2025-01-16 12:19 | W.PN.HOSP.TC ---
Today's Communication/Plan
-
MRI brain with and without contrast today
Neurology, ID and psych following
Assessment / Plan
Assessment / Plan
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 Rafael Bajwa at [facility], recently treated with radiation for lung
nodules), hypothyroidism anxiety), and recent thrush (treated with nystatin swish and swallow) who presented for evaluation of encephalopathy. Her reports ongoing weakness for the past few weeks with a significant decline since the Thursday
prior to arrival (12/30/2024) when she was unable to ambulate on her own due to balance issues and began hallucinating. In the ED she was found to be positive for influenza B, with possible LLL pneumonia. Found to have old lacunar infarct on MRI.
CXR 01/03/25
IMPRESSION:
Predominantly thickened linear opacity in the right midlung most likely representing subsegmental atelectasis.
Minimal patchy opacity in the left lung base which could represent subsegmental atelectasis, less likely pneumonia.
Right chest port with tip at the level of the cardiac right atrium.
HEAD CT
IMPRESSION:
1. No CT evidence for acute intracranial hemorrhage or transcortical infarct.
2. Mild diffuse cerebral and cerebellar volume loss.
3. Mild periventricular white matter leukoaraiosis.
4. 7.5 mm chronic white matter infarct in the right frontal lobe salazar radiata.
5. 5.6 mm chronic infarct in the right cerebellar hemisphere.
Brain MRI
IMPRESSION:
MRI findings are suspicious for a nonspecific encephalopathy with mild symmetric restricted diffusion and FLAIR hyperintense signal in the cortices of the bilateral frontal lobes, and to a lesser degree the bilateral parieto-occipital lobes.
Linear filling defect in the central lumen of the left sigmoid sinus. Differential considerations would include nonocclusive thrombus or flow related artifact.
TTE Saline Study
SUMMARY
1. Moderate LV systolic dysfunction. Global hypokinesis. The base of the heart contracts the best. Estimated LVEF 36%.
2. Negative agitated saline/bubble study for right to left shunt.
3. Aortic valve sclerosis without stenosis. Mild AR.
4. Mild to moderate mitral and tricuspid regurgitation.
5. No prior study available for comparison.
MRA 01/09
IMPRESSION:
1. CHRONIC OCCLUSION of the LEFT TRANSVERSE SINUS, SIGMOID SINUS, and INTERNAL JUGULAR VEIN.
2. 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
PLAN:
# Encephalopathy -likely viral (influenza B associated) vs ADEM
MRI: Mild symmetric restricted diffusion/FLAIR hyperintensity in bilateral frontal > parietal occipital cortices, indicating nonspecific encephalopathy
CSF: No pleocytosis/normal protein/negative paraneoplastic/Lyme/VDRL
EEGs on 01/06 and 01/10: Normal (Creutzfeldt Jason disease unlikely
Influenza B positive on admission
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
Completed 5 days of IV high-dose steroids for presumed ADEM (01/10-01/14). Now on oral prednisone taper per neurology.
Repeat MRI brain with and without contrast scheduled for today 02/02/2025
Neurology and infectious disease following
# Depression
On Wellbutrin
Possible contribution to encephalopathy
Psychiatry following. Weaning Wellbutrin.
# Hypokalemia
K2.7 on 01/15/2025. K 3.3 on 01/16/2025
Potassium repleted
Trend BMP
# Microcytosis with possible folate deficiency
Mildly elevated homocystine
Continue folic acid supplementation daily
#Chronic lacunar infarcts in right cerebellum and right frontal region of brain
MRI as above
On aspirin and high intensity statin
#Community-acquired pneumonia
CXR on 01/03/2025 revealed left lower lobe opacity
S/p ceftriaxone/azithromycin course
Clinical improvement noted
# Dysphagia-resolved
Related to encephalopathy and prior oral surgery
Speech following, on modified diet. Continue Ensure.
Patient expresses her oral intake has increased and her appetite is back.
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
Stable since 2015 per prior imaging
Discussed with neurosurgery and no intervention is indicated at this time.
# Urinary retention�resolved
S/p [place] catheter
Currently voiding spontaneously
Continue to monitor
# History of mucosal epidermoid carcinoma of oral cavity
S/p mandibular resection, chemotherapy and radiation (including chest for lung nodules)
Follows with Dr. Bajwa ([facility]). Voice message was left for update earlier.
Continue outpatient oncology follow-up
# Thrush
Recently treated with nystatin swish and swallow
Continue oral care and monitoring
DVT prophylaxis: Lovenox
CODE STATUS: Full code
Anticipated Discharge: 24 - 48 hours
Subjective/Interval History
-
Date of Service: January 16, 2025
Patient evaluated at bedside this morning. She is lying comfortably in bed and states she slept well overnight. She also states she has been eating more than before and her appetite is back. No new complaints.
Objective Data
-
Labs:
Laboratory Results
01/16/25
07:45
Sodium 140
Potassium 3.3 L
Chloride 105
Carbon Dioxide 28
BUN 7
Creatinine 0.5 L
Glucose 68 L
Calcium 8.7
Vital Signs:
Vital Signs
Temp Pulse Resp BP Pulse Ox
98.4 F 103 18 134/87 97
01/16/25 07:26 01/16/25 07:26 01/16/25 07:26 01/16/25 07:26 01/16/25 07:26
I&O
01/15/25 01/16/25 01/17/25
05:59 06:59 06:59
Intake Total 1210 / 1210 1490 / 1490
Output Total 800 / 800
Balance 410 / 410 1489
Review of Systems
-
History Source: Patient
Constitutional: Reports No Symptoms
EENT: Reports No Symptoms Reported
Respiratory: Reports No Symptoms
Cardiac: Reports No Symptoms
Abdomen/GI: Reports No Symptoms
Breast: Reports No Symptoms
Genitourinary: Reports No Symptoms
Musculoskeletal: Reports No Symptoms
Skin: Reports No Symptoms
Endocrine: Reports No Symptoms
Hematologic / Lymphatic: Reports No Symptoms
Physical Exam
-
General: Well Developed, Well Nourished and No Apparent Distress
HEENT: Normocephalic, Atraumatic, Moist Mucous Membranes and Other (s/p mandibular resection)
Respiratory: Clear to Auscultation
Cardiac: Regular Rhythm and S1/S2
GI: Soft, Nontender, Nondistended, Normal Bowel Sounds and No Hepatosplenomegaly
Musculoskeletal: No Clubbing, No Cyanosis and No Edema
Skin: Warm
Neuro: Awake and Alert
Psych: Calm
Data Reviewed
-
Labs: Labs Reviewed by me, Discussed with Physician and Discussed with Patient
Old Records: Reviewed
[2025-01-16] MEDS: KCL ELIXIR 20 MEQ TUBE (12:39)
[2025-01-16 15:22] VITALS: BP 122/77
--- NOTE | 2025-01-16 15:35 | CM ---
CM reviewed chart and ADC 1-2 days, awaiting MRI
Initial plan was for [facility] SNF and auth obtained last week
Call with [employer] [phone] (p)
Auth no longer valid as pt did not admit to SNF within 3 days of start date
Will need new auth- same day auth can be called in
Call to spouse with update- he is hopeful for placement at 1). [facility] and then 2). [facility]
He is in agreement with [facility] should [facility] or [facility] not accept
Updated clinicals sent via [facility]- awaiting responses from [facility] and [facility]- [phone]
[facility] - [phone]
Discharge Disposition- SNF pending auth
[2025-01-16] MEDS: STERILE WATER FOR INJECTION IV (17:11)
[2025-01-16] MEDS: LOVENOX 40 MG SC (17:12)
[2025-01-16] MEDS: LIPITOR 40 MG PO (17:12)
--- NOTE | 2025-01-16 19:59 | W.PN.UPDATE ---
Update Note
Progress Note Update
pt seen for assessment of progress. Affect brighter, pt states she feels better. at bedside pointed out some lingering deficiencies in memory and calculations. Today is brother's birthday; tired to get pt to find this information,
after pt first guessed October, then November then December as the month. Unable to give her own age, or even year of her , until asked to state date of which she did wihtout a thoug, correctly. Attempted to get pt to state her brother's
age, which took a very long time with many blind alleys in calculation. Awaiting MRI in order to help determine cause for mental lapse. Hoping to leave soon.
[2025-01-16] MEDS: SEROQUEL 12.5 MG PO (21:38)
[2025-01-16 23:05] VITALS: BP 96/76
[2025-01-17] MEDS: SYNTHROID 150 MCG PO (05:19)
[2025-01-17 06:56] LABS: Hematocrit 35.4 % (37.0-47.0); Hemoglobin 12.1 g/dL (12.0-16.0); Mean Corp Hgb Conc. 34.2 g/dL (33.0-37.0); Mean Corpuscular Volume 119.2 fL (81.0-99.0); Nucleated Red Blood Cells % 0 %; Platelet Count 200 10^3/uL (130-400); Red Cell Dist. Width 13.7 % (11.5-14.5)
[2025-01-17 07:00] VITALS: BP 119/78
[2025-01-17 07:02] LABS: ALT (SGPT) 44 U/L (0-35); AST (SGOT) 42 U/L (14-36); Albumin 3.2 g/dl (3.5-5.0); Alkaline Phosphatase 81 U/L (38-126); Blood Urea Nitrogen 10 mg/dl (7-17); Calcium 8.8 mg/dl (8.4-10.2); Carbon Dioxide 29 mmol/L (22-30); Chloride 103 mmol/L (98-107); Estimated Creatinine Clearance 92 ml/min; Glucose 90 mg/dl (70-99); Magnesium 1.7 mg/dl (1.6-2.3); Potassium 3.6 mmol/L (3.5-5.1); Sodium 137 mmol/L (135-145); Total Protein 5.6 g/dl (6.3-8.2); eGFR > 60.00
[2025-01-17] MEDS: KLOR-CON 20 MEQ PO (09:22)
[2025-01-17] MEDS: ASPIR LOW (ENTERIC COATED) 81 MG PO (09:23)
[2025-01-17] MEDS: DELTASONE 40 MG PO (09:23)
[2025-01-17] MEDS: FOLVITE 5 MG PO (09:23)
[2025-01-17] MEDS: VITAMIN B1 100 MG PO ×2 (09:23→19:56)
[2025-01-17] MEDS: PROTONIX 40 MG PO (09:23)
[2025-01-17] MEDS: DESENEX/MITRAZOL/ZEASORB 1 APPLIC TOPICAL ×2 (09:23→20:10)
[2025-01-17] MEDS: LAMICTAL 150 MG PO (09:23)
[2025-01-17] MEDS: WELLBUTRIN SR (12 hour sustained release) 100 MG PO (09:23)
[2025-01-17] MEDS: ATIVAN 1 MG PO (11:00)
--- NOTE | 2025-01-17 11:20 | W.PN.HOSP.TC ---
Today's Communication/Plan
-
MRI brain today
Assessment / Plan
Assessment / Plan
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 Rafael Bajwa at [facility], recently treated with radiation for lung
nodules), hypothyroidism anxiety), and recent thrush (treated with nystatin swish and swallow) who presented for evaluation of encephalopathy. Her reports ongoing weakness for the past few weeks with a significant decline since the Thursday
prior to arrival (12/30/2024) when she was unable to ambulate on her own due to balance issues and began hallucinating. In the ED she was found to be positive for influenza B, with possible LLL pneumonia. Found to have old lacunar infarct on MRI.
CXR 01/03/25
IMPRESSION:
Predominantly thickened linear opacity in the right midlung most likely representing subsegmental atelectasis.
Minimal patchy opacity in the left lung base which could represent subsegmental atelectasis, less likely pneumonia.
Right chest port with tip at the level of the cardiac right atrium.
HEAD CT
IMPRESSION:
1. No CT evidence for acute intracranial hemorrhage or transcortical infarct.
2. Mild diffuse cerebral and cerebellar volume loss.
3. Mild periventricular white matter leukoaraiosis.
4. 7.5 mm chronic white matter infarct in the right frontal lobe salazar radiata.
5. 5.6 mm chronic infarct in the right cerebellar hemisphere.
Brain MRI
IMPRESSION:
MRI findings are suspicious for a nonspecific encephalopathy with mild symmetric restricted diffusion and FLAIR hyperintense signal in the cortices of the bilateral frontal lobes, and to a lesser degree the bilateral parieto-occipital lobes.
Linear filling defect in the central lumen of the left sigmoid sinus. Differential considerations would include nonocclusive thrombus or flow related artifact.
TTE Saline Study
SUMMARY
1. Moderate LV systolic dysfunction. Global hypokinesis. The base of the heart contracts the best. Estimated LVEF 36%.
2. Negative agitated saline/bubble study for right to left shunt.
3. Aortic valve sclerosis without stenosis. Mild AR.
4. Mild to moderate mitral and tricuspid regurgitation.
5. No prior study available for comparison.
MRA 01/09
IMPRESSION:
1. CHRONIC OCCLUSION of the LEFT TRANSVERSE SINUS, SIGMOID SINUS, and INTERNAL JUGULAR VEIN.
2. 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
PLAN:
# Encephalopathy -likely viral (influenza B associated) vs ADEM
MRI: Mild symmetric restricted diffusion/FLAIR hyperintensity in bilateral frontal > parietal occipital cortices, indicating nonspecific encephalopathy
CSF: No pleocytosis/normal protein/negative paraneoplastic/Lyme/VDRL
EEGs on 01/06 and 01/10: Normal (Creutzfeldt Jason disease unlikely
Influenza B positive on admission
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
Completed 5 days of IV high-dose steroids for presumed ADEM (01/10-01/14). Now on oral prednisone taper per neurology.
Repeat MRI brain with and without contrast today 01/17/25. Given Ativan prior to imaging.
Neurology and infectious disease following
# Depression
On Wellbutrin
Possible contribution to encephalopathy
Psychiatry following. Weaning Wellbutrin.
# Hypokalemia
K2.7 on 01/15/2025. K 3.3 on 01/16/2025
Potassium repleted. Repeat K 3.6 on 01/17/25
Trend BMP
# Microcytosis with possible folate deficiency
Mildly elevated homocystine
Continue folic acid supplementation daily
#Chronic lacunar infarcts in right cerebellum and right frontal region of brain
MRI as above
On aspirin and high intensity statin
#Community-acquired pneumonia
CXR on 01/03/2025 revealed left lower lobe opacity
S/p ceftriaxone/azithromycin course
Clinical improvement noted
# Dysphagia-resolved
Related to encephalopathy and prior oral surgery
Speech following, on modified diet. Continue Ensure.
Patient expresses her oral intake has increased and her appetite is back. states she has been eating breakfast by herself today successfuly.
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
Stable since 2016 per prior imaging
Discussed with neurosurgery and no intervention is indicated at this time.
# Urinary retention�resolved
S/p [place] catheter
Currently voiding spontaneously
Continue to monitor
# History of mucosal epidermoid carcinoma of oral cavity
S/p mandibular resection, chemotherapy and radiation (including chest for lung nodules)
Follows with Dr. Bajwa ([facility]). Voice message was left for update earlier.
Continue outpatient oncology follow-up
# Thrush
Recently treated with nystatin swish and swallow
Continue oral care and monitoring
DVT prophylaxis: Lovenox
CODE STATUS: Full code
Anticipated Discharge: Within 24 hours
Subjective/Interval History
-
Date of Service: January 17, 2025
Patient evaluated at bedside with present. Patient states she feels well. states that she has been eating on her own successfully. Nurse informed that patient was able to walk around. No new complaints.
Objective Data
-
Labs:
Laboratory Results
01/17/25
06:17
WBC 8.3
Hgb 12.1
Hct 35.4 L
Plt Count 200
Sodium 137
Potassium 3.6
Chloride 103
Carbon Dioxide 29
BUN 10
Creatinine 0.5 L
Glucose 90
Calcium 8.8
Total Bilirubin 0.9
AST 42 H
ALT 44 H
Alkaline Phosphatase 81
Vital Signs:
Vital Signs
Temp Pulse Resp BP Pulse Ox
97.4 F 97 16 119/78 96
01/17/25 07:00 01/17/25 07:00 01/17/25 07:00 01/17/25 07:00 01/17/25 10:38
I&O
01/16/25 01/17/25 01/18/25
06:59 06:59 06:59
Intake Total 1490 / 1490 1200 / 1200
Balance 1490 / 1490 1200 / 1200
Review of Systems
-
History Source: Patient and Family ()
Constitutional: Reports No Symptoms
EENT: Reports No Symptoms Reported
Respiratory: Reports No Symptoms
Cardiac: Reports No Symptoms
Abdomen/GI: Reports No Symptoms
Breast: Reports No Symptoms
Genitourinary: Reports No Symptoms
Musculoskeletal: Reports No Symptoms
Skin: Reports No Symptoms
Endocrine: Reports No Symptoms
Physical Exam
-
General: Well Developed, Well Nourished, No Apparent Distress, Comfortable and Conversant
HEENT: Normocephalic, Atraumatic, Moist Mucous Membranes and Anicteric
Respiratory: Clear to Auscultation
Cardiac: Regular Rhythm and S1/S2 (No murmur)
GI: Soft, Nontender, Nondistended and Normal Bowel Sounds
Musculoskeletal: No Clubbing, No Cyanosis and No Edema
Skin: Warm
Neuro: Awake, Alert and Other (Not oriented to self, able to guess month after 3 guesses)
Psych: Calm
Data Reviewed
-
Labs: Labs Reviewed by me, Discussed with Physician, Discussed with Patient and Discussed with Family
Old Records: Reviewed
--- NOTE | 2025-01-17 14:35 | PTOTSP ---
ST Follow-Up
Pt continues to present with moderately-severe oral dysphagia and mild pharyngeal dysphagia as evident by prolonged mastication, bolus formation, and oral clearance requiring multiple compensatory strategies, poor oral containment with moderate
anterior loss of bolus with poor awareness/oral sensation, increased saliva production with PO intake with reduced management that was likely what resulted in an episode of coughing with PO intake that is suspicious for penetration/aspiration. Pt
also noted to have trace-mild pharyngeal residue on VFSS this admission.
Recommendations:
- Continue with minced moist solids (low threshold for downgrade to pureed solids - if minced moist solids not available at SNF, please order pureed solids) with thin liquids; meds whole in puree, crush as needed.
- Aspiration precautions and compensatory strategies: HOB fully upright during PO intake; chew food thoroughly; alternate bites/sips; no talking while eating/drinking; check for oral clearance.
- OPERATOR ASSISTANT I CEMENTING to f/u re: diet tolerance, use/recall of compensatory strategies, and to determine if the pt would benefit from an instrumental swallow study.
- OPERATOR ASSISTANT I CEMENTING at SNF to monitor cognitive communication and assess further as indicated. Neuropsych eval may be indicated if improvements are not appreciated with therapy/interventions provided at rehab.
[2025-01-17 15:04] VITALS: BP 119/89; PULSE 95; O2SAT 97
[2025-01-17 15:14] VITALS: BP 111/71
--- NOTE | 2025-01-17 15:45 | CM ---
CM following re: discharge planning.
Reviewed pt's chart, met with pt and pt's at bedside.
Discharge order noted. Both pt and her are aware and they requested [facility].
CM spoke to [facility] SNF liaison and she confirmed they do not have a bed available today, will have a bed available tomorrow and pt will be accepted for admission tomorrow.
CM tried to obtain an auth from [employer], was an a phone for 35 minutes and it was disconnected.
CM will obtain an auth for SNF level of care at [facility] tomorrow.
D/CX plan: [facility]. Will obtain an auth.
[2025-01-17] MEDS: STERILE WATER FOR INJECTION IV (17:02)
[2025-01-17] MEDS: LOVENOX 40 MG SC (17:23)
[2025-01-17] MEDS: LIPITOR 40 MG PO (17:23)
[2025-01-17] MEDS: SEROQUEL 12.5 MG PO (21:20)
--- NOTE | 2025-01-17 22:53 | W.PN.UPDATE ---
Update Note
Progress Note Update
pt seen for assessment this afternoon. Happy she had MRA unchanged from earlier study.A bit irritable with who was helping her to eat pudding (much of which she was drooling over her chest. Hoping to be able to leave hospital soon. Able to
remember that yesterday was brother's birthday, very happy about this ability
[2025-01-18] MEDS: SYNTHROID 150 MCG PO (06:01)
[2025-01-18 07:08] LABS: Hematocrit 33.8 % (37.0-47.0); Hemoglobin 11.7 g/dL (12.0-16.0); Mean Corp Hgb Conc. 34.6 g/dL (33.0-37.0); Mean Corpuscular Volume 114.6 fL (81.0-99.0); Nucleated Red Blood Cells % 0 %; Platelet Count 206 10^3/uL (130-400); Red Cell Dist. Width 14.1 % (11.5-14.5)
[2025-01-18 07:15] VITALS: BP 128/72
[2025-01-18 07:29] LABS: ALT (SGPT) 38 U/L (0-35); AST (SGOT) 35 U/L (14-36); Albumin 3.1 g/dl (3.5-5.0); Alkaline Phosphatase 70 U/L (38-126); Blood Urea Nitrogen 10 mg/dl (7-17); Calcium 8.9 mg/dl (8.4-10.2); Carbon Dioxide 31 mmol/L (22-30); Chloride 104 mmol/L (98-107); Estimated Creatinine Clearance 92 ml/min; Glucose 83 mg/dl (70-99); Magnesium 1.8 mg/dl (1.6-2.3); Potassium 4.1 mmol/L (3.5-5.1); Sodium 133 mmol/L (135-145); Total Protein 5.4 g/dl (6.3-8.2); eGFR > 60.00
[2025-01-18] MEDS: PROTONIX 40 MG PO (07:49)
[2025-01-18] MEDS: WELLBUTRIN SR (12 hour sustained release) 100 MG PO (07:49)
[2025-01-18] MEDS: ASPIR LOW (ENTERIC COATED) 81 MG PO (07:49)
[2025-01-18] MEDS: VITAMIN B1 100 MG PO (07:49)
[2025-01-18] MEDS: FOLVITE 5 MG PO (07:49)
[2025-01-18] MEDS: KLOR-CON 20 MEQ PO (07:49)
[2025-01-18] MEDS: LAMICTAL 150 MG PO (07:49)
[2025-01-18] MEDS: DELTASONE 40 MG PO (07:49)
[2025-01-18] MEDS: DESENEX/MITRAZOL/ZEASORB 1 APPLIC TOPICAL (07:59)
--- NOTE | 2025-01-18 10:33 | W.PN.HOSP.TC ---
Today's Communication/Plan
-
DC
Assessment / Plan
Assessment / Plan
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 Rafael Bajwa at [facility], recently treated with radiation for lung
nodules), hypothyroidism anxiety), and recent thrush (treated with nystatin swish and swallow) who presented for evaluation of encephalopathy. Her reports ongoing weakness for the past few weeks with a significant decline since the Thursday
prior to arrival (12/30/2024) when she was unable to ambulate on her own due to balance issues and began hallucinating. In the ED she was found to be positive for influenza B, with possible LLL pneumonia. Found to have old lacunar infarct on MRI.
CXR 01/03/25
Predominantly thickened linear opacity in the right midlung most likely representing subsegmental atelectasis.
Minimal patchy opacity in the left lung base which could represent subsegmental atelectasis, less likely pneumonia.
Right chest port with tip at the level of the cardiac right atrium.
HEAD CT
1. No CT evidence for acute intracranial hemorrhage or transcortical infarct.
2. Mild diffuse cerebral and cerebellar volume loss.
3. Mild periventricular white matter leukoaraiosis.
4. 7.5 mm chronic white matter infarct in the right frontal lobe salazar radiata.
5. 5.6 mm chronic infarct in the right cerebellar hemisphere.
Brain MRI
MRI findings are suspicious for a nonspecific encephalopathy with mild symmetric restricted diffusion and FLAIR hyperintense signal in the cortices of the bilateral frontal lobes, and to a lesser degree the bilateral parieto-occipital lobes.
Linear filling defect in the central lumen of the left sigmoid sinus. Differential considerations would include nonocclusive thrombus or flow related artifact.
TTE Saline Study
1. Moderate LV systolic dysfunction. Global hypokinesis. The base of the heart contracts the best. Estimated LVEF 36%.
2. Negative agitated saline/bubble study for right to left shunt.
3. Aortic valve sclerosis without stenosis. Mild AR.
4. Mild to moderate mitral and tricuspid regurgitation.
5. No prior study available for comparison.
MRA 01/09
1. CHRONIC OCCLUSION of the LEFT TRANSVERSE SINUS, SIGMOID SINUS, and INTERNAL JUGULAR VEIN.
2. 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
MRI brain 01/17/25
1. Significantly improved diffusion/FLAIR hyperintense cortical signal within the bilateral frontal lobes which may be sequelae of improving inflammatory process
PLAN:
# Encephalopathy -likely viral (influenza B associated) vs ADEM
MRI: Mild symmetric restricted diffusion/FLAIR hyperintensity in bilateral frontal > parietal occipital cortices, indicating nonspecific encephalopathy
CSF: No pleocytosis/normal protein/negative paraneoplastic/Lyme/VDRL
EEGs on 01/06 and 01/10: Normal (Creutzfeldt Jason disease unlikely)
Influenza B positive on admission
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
Completed 5 days of IV high-dose steroids for presumed ADEM (01/10-01/14). Now on oral prednisone taper per neurology.
MRI brain 01/17/25 shows improvement.
Neurology and infectious disease following
# Hyponatremia
Na 133 01/18/2025.
No symptoms, may be dilutional due to increased intake of water.
# Depression
On Wellbutrin. Possible contribution to encephalopathy
Psychiatry following. Dose of Wellbutrin decreased from 300 mg to 100 mg.
Quetiapine 12.5 HS
# Hypokalemia
K2.7 on 01/15/2025. K 3.3 on 01/16/2025
Potassium repleted. Repeat K 3.6 on 01/17/25
Trend BMP
# Microcytosis with possible folate deficiency
Mildly elevated homocystine
Continue folic acid supplementation daily
#Chronic lacunar infarcts in right cerebellum and right frontal region of brain
MRI as above
On aspirin and high intensity statin
#Community-acquired pneumonia
CXR on 01/03/2025 revealed left lower lobe opacity
S/p ceftriaxone/azithromycin course
Clinical improvement noted
# Dysphagia-resolved
Related to encephalopathy and prior oral surgery
Speech following, on modified diet. Continue Ensure.
Patient expresses her oral intake has increased and her appetite is back. states she has been eating breakfast by herself today successfuly.
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
Stable since 2016 per prior imaging
Discussed with neurosurgery and no intervention is indicated at this time.
# Urinary retention�resolved
S/p [place] catheter
Currently voiding spontaneously
Continue to monitor
# History of mucosal epidermoid carcinoma of oral cavity
S/p mandibular resection, chemotherapy and radiation (including chest for lung nodules)
Follows with Dr. Bajwa ([facility]). Voice message was left for update earlier.
Continue outpatient oncology follow-up
# Thrush
Recently treated with nystatin swish and swallow
Continue oral care and monitoring
DVT prophylaxis: Lovenox
CODE STATUS: Full code
Anticipated Discharge: Today
Subjective/Interval History
-
Date of Service: January 18, 2025
Patient evaluated at bedside this morning. She states she feels well. No new complaints.
Objective Data
-
Labs:
Laboratory Results
01/18/25
06:12
WBC 9.7
Hgb 11.7 L
Hct 33.8 L
Plt Count 206
Sodium 133 L
Potassium 4.1
Chloride 104
Carbon Dioxide 31 H
BUN 10
Creatinine 0.5 L
Glucose 83
Calcium 8.9
Total Bilirubin 1.0
AST 35
ALT 38 H
Alkaline Phosphatase 70
Vital Signs:
Vital Signs
Temp Pulse Resp BP Pulse Ox
97.6 F 104 16 128/72 97
01/18/25 07:15 01/18/25 07:15 01/18/25 07:15 01/18/25 07:15 01/18/25 07:15
I&O
01/17/25 01/18/25 01/19/25
06:59 06:59 06:59
Intake Total 1200 / 1200 1170 / 1170
Balance 1200 / 1200 1170 / 1170
Review of Systems
-
History Source: Patient
All other systems: Reviewed and negative
Constitutional: Reports No Symptoms
EENT: Reports No Symptoms Reported
Respiratory: Reports No Symptoms
Cardiac: Reports No Symptoms
Abdomen/GI: Reports No Symptoms
Breast: Reports No Symptoms
Genitourinary: Reports No Symptoms
Musculoskeletal: Reports No Symptoms
Skin: Reports No Symptoms
Endocrine: Reports No Symptoms
Hematologic / Lymphatic: Reports No Symptoms
Physical Exam
-
General: Well Developed, Well Nourished, No Apparent Distress, Comfortable and Conversant
HEENT: Normocephalic, Atraumatic and Moist Mucous Membranes
Respiratory: Clear to Auscultation
Cardiac: Regular Rhythm and S1/S2
GI: Soft, Nontender, Nondistended, Normal Bowel Sounds and No Hepatosplenomegaly
Musculoskeletal: No Clubbing, No Cyanosis and No Edema
Skin: Warm
Neuro: Awake and Alert
Psych: Calm
Data Reviewed
-
MRI: Report Reviewed by me, Discussed with Physician, Discussed with Patient and Discussed with Family
Labs: Labs Reviewed by me, Discussed with Physician, Discussed with Patient and Discussed with Family
--- NOTE | 2025-01-18 10:56 | CM ---
CM following re: discharge planning.
Reviewed pt's chart, met with pt and pt's ay bedside.
Discharge order noted. Both pt and her are aware, expressed their agreement and stated he will transport his spouse to [facility].
An auty initiated with [employer], spoke to residential sales representative Cash and based on pt's clinical pt is approved for 6 initial days SNF level 1 at [facility] from today 12/18/24 till 12/23/24 with LCD and NRD 12/23/24. Auth: [id number]. For review call
[phone].
Auth information forwarded to [facility] admissions liaison and she confirmed that pt is accepted for admission today.
Updated pt's clinical faxed to [facility] for review.
[facility] nursing report: [phone]
Discharge instructions fax: [phone]
D/C plan: [facility]. to transport.
--- NOTE | 2025-01-18 13:44 | W.DCSUMMARY ---
Discharge Summary
Discharge Data
Date of Admission: 01/03/25
Date of Discharge: 01/18/25
-
Pending Results: No
Hospital Course
Discharging Physician : Dr. Cash Mortensen and Dr. Ning Arthur
Disposition : SNF
Primary care physician : Dr. Erika Robbins MD
Principal Discharge diagnosis :
Encephalopathy -likely viral (influenza B associated) vs ADEM
Hyponatremia
Depression
Hypokalemia
Community-acquired pneumonia
Dysphagia
urinary retention
Thrush
Chronic Discharge diagnosis :
Microcytosis with possible folate deficiency
Chronic lacunar infarcts in right cerebellum and right frontal region of brain
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
anxiety
hypothyroidism
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 Rafael Bajwa at [facility], recently treated with radiation for lung
nodules, hypothyroidism, anxiety, and recent thrush was admitted for evaluation of encephalopathy. Her reported progressive weakness over several weeks with acute worsening and hallucinations beginning on 12/30. On presentation, she tested
positive for influenza B with imaging suggestive of a possible left lower lobe pneumonia. MRI of the brain revealed nonspecific encephalopathic changes, which showed significant improvement on repeat imaging (01/17), consistent with a resolving
inflammatory process, possibly influenza-associated or ADEM. CSF and EEG were unremarkable. She completed a 5 day course of IV high dose steroids (01/10/25 to 01/14/25) and was transitioned to a prednisone taper per neurology recommendations with
notable clinical improvement.
Hospital course was further notable for mild hyponatremia (Na 133 on 01/18), likely dilutional, and hypokalemia which improved with repletion. Psychiatry was consulted for depression; her Wellbutrin dose was reduced from 300 mg to 100 mg due to
concern for possible contribution to mood changes and encephalopathy; she remained stable on quetiapine 12.5 mg nightly. She was also treated for community-acquired pneumonia with ceftriaxone and azithromycin. Folate supplementation was continued
for mild microcytosis with elevated homocysteine. Her dysphagia, likely related to encephalopathy and prior oral surgery, was managed with speech therapy and nutritional support via Ensure. Urinary retention resolved following [place] removal. Thrush
improved with nystatin swish and swallow and continued oral care.
At discharge, the patient was clinically stable, more alert and ambulating with assistance. She was advised to continue prednisone taper, folic acid supplementation, and her adjusted psychiatric medications. Follow-up with neurology and her PCP was
recommended. Patient and understand and agree to the plan.
Discharge Plan
-
Patient Disposition: Correction/SNF
Discharge Diagnosis/Procedures: Acute Disseminated Encephalomyelitis
Influenza B
Macrocytic Anemia
Chronic Lacunar Infarcts in the Right Cerebellum and Right Frontal Lobes
Community Acquired Pneumonia
History of Depression
History of Head and Neck Cancer
Condition: Fair
Diet: Other diet
Additional Diets: IDDSI 5 - Minced and Moist
Activity: With assistance
Driving Restrictions: As prior to admission
Bathing Restrictions: None
Referrals:
Eleazar Quintanilla MD [Active, Neurology]
Referral Note: For follow up of Acute Disseminated Encephalomyelitis, once discharged from long term facility.
Erika Robbins MD [Family Provider, Family Practice] - in less than 1 week
Prescriptions:
New
aspirin 81 mg Tablet,Delayed Release (Dr/Ec)
81 mg PO DAILY Qty: 30 0RF
prednisone 10 mg Tablet
See Rx Instructions .ROUTE .COMPLEX Qty: 70 0RF
Rx Instructions:
Take By Mouth:
40 mg daily x7 days,
30 mg daily x7 days, 20 mg daily x7 days,
10 mg daily x7 days
quetiapine 25 mg Tablet
12.5 mg PO HS Qty: 30 0RF
atorvastatin 40 mg Tablet
40 mg PO QPM Qty: 30 0RF
miconazole nitrate [Miconazorb AF] 2 % Powder
1 applic topical BID Qty: 1 0RF
bupropion HCl 100 mg Tablet Sustained-Release 12 Hr
100 mg PO DAILY Qty: 30 0RF
potassium chloride 20 mEq Packet
20 meq PO DAILY Qty: 30 0RF
pantoprazole 40 mg Tablet,Delayed Release (Dr/Ec)
40 mg PO DAILY Qty: 30 0RF
folic acid 1 mg Tablet
5 mg PO DAILY Qty: 30 0RF
thiamine mononitrate (vit B1) 100 mg Tablet
100 mg PO BID Qty: 30 0RF
Continued
lamotrigine 150 MG tablet
150 mg PO DAILY
levothyroxine 150 mcg tablet
150 mcg PO DAILY
Discontinued
bupropion HCl 300 MG tablet extended release 24 hr
300 mg PO DAILY
nystatin 100,000 unit/mL suspension
4 ml PO QID
lorazepam 1 mg tablet
1 mg PO Q4HPRN PRN (Reason: anxiety)
oxycodone 10 mg tablet
10 mg PO Q6HPRN PRN (Reason: pain)
Discharge Orders:
Discharge Patient (As Directed); Ordered 01/17/25
Ordered By: Artem Short
Discharge Date and Time
Print Language: OCCITAN
[2025-01-18 15:35] VITALS: BP 119/79
--- NOTE | 2025-01-18 15:38 | PTCARENOTE ---
Addendum entered by Meghana Marquez RN 01/18/25 16:00:
DC packet given to to hand to nurses at facility.
Original Note:
Patient discharged to [facility], transported by . This RN removed patient's IV, vitals taken by tech. Patient provided soap and water bath and dressed in home clothes prior to DC. Patient taken down to 's car at main lobby via
staff escort and wheelchair. Report called to Barbra at facility by this RN.
== END 2025-01-18 15:56 | DRG 97 ==
LOC: 2 NORTH 19:19
PROVIDERS: Nurse Practitioner Family; Radiology Diagnostic Radiology; Student in an Organized Health Care Education/Training Program; ADMITTING PHYSICIAN Hospitalist; ATTENDING PHYSICIAN Internal Medicine; CONSULT PHYSICIAN Internal Medicine Infectious Disease; CONSULT PHYSICIAN Psychiatry & Neurology Neurology; CONSULT PHYSICIAN Psychiatry & Neurology Psychiatry; EMERGENCY PHYSICIAN Student in an Organized Health Care Education/Training Program; FAMILY PHYSICIAN Family Medicine
PROC: 009U3ZX Drainage of Spinal Canal, Percutaneous Approach, Diagnostic (ICD-10-PCS; 2025-01-05)
PROC: B01B1ZZ Fluoroscopy of Spinal Cord using Low Osmolar Contrast (ICD-10-PCS; 2025-01-05)
DX: G04.01 Postinfectious acute disseminated encephalitis and encephalomyelitis (postinfectious ADEM) (principal); G93.41 Metabolic encephalopathy; J18.9 Pneumonia, unspecified organism; I63.81 Other cerebral infarction due to occlusion or stenosis of small artery; E87.1 Hypo-osmolality and hyponatremia; B37.0 Candidal stomatitis; F17.200 Nicotine dependence, unspecified, uncomplicated; E87.6 Hypokalemia; F41.9 Anxiety disorder, unspecified; F32.A Depression, unspecified; C06.9 Malignant neoplasm of mouth, unspecified; Z11.52 Encounter for screening for COVID-19
CPT/HCPCS: 36600; 51701; 62328; 70450; 70546; 70553; 71046; 74230; 80048; 80053; 80175; 81003; 81015; 82140; 82164; 82248; 82607; 82728; 82746; 82805; 82945; 82962; 83090; 83540; 83550; 83735; 83921; 84100; 84132; 84157; 84439; 84443; 85025; 85027; 85610; 86255; 86376; 86592; 87015; 87040; 87070; 87086; 87102; 87116; 87205; 87476; 87483; 87502; 87811; 88108; 89051; 92523; 92526; 92610; 92611; 93005; 93306; 95816; 96361; 96365; 96375; 97116; 97163; 97167; 97530; 97535; 99285; A9575; A9585